=== PATIENT | female | born 1990 | race Caucasian/White ===

== ENCOUNTER → 2023-01-18 | Outpatient (CLI) | payer OTHER, SELFPAY ==
[2023-01-18 10:39] LABS: AST(SGOT) 76 U/L (15-37); Alanine Aminotransfer ALT/SGPT 91 U/L (13-56); Albumin, Serum 3.9 g/dL (3.2-5.0); Alkaline Phosphatase 68 U/L (45-117); Bilirubin, Direct 0.29 mg/dL (0.00-0.30); Globulin 3.7 g/dL (2.2-4.2); Protein, Total 7.6 g/dL (6.4-8.2)
[2023-01-18 12:22] LABS: Absolute Lymphocyte Count 1.06 X10^3/uL (0.83-4.51); Absolute Neutrophil Count 2.9 X10^3/uL (2.0-7.7); Basophil# 0.03 X10^3/uL; Basophil% 0.7 % (0-1); Eosinophil# 0.12 X10^3/uL; Eosinophils% 2.7 % (0-5); Hematocrit 40.3 % (37-47); Hemoglobin 14.1 g/dL (12.0-15.0); Lymphocyte # 1.06 X10^3/ul (0.83-4.51); Lymphocyte % 23.6 % (19-41); Mean Corpuscular Hgb 30.2 pg (27.0-32.0); Mean Corpuscular Volume 86.3 fL (81-99); Mean Platelet Vol. 10.3 fl (6.2-12.0); Monocyte# 0.36 X10^3/uL; NRBC Flagged by Analyzer 0 % (0-5); Neutrophil # 2.91 X10^3/uL (2.7-7.7); Neutrophil % 64.8 % (47-70); Platelet Count 100 K/mm3 (150-450); RBC Distribution Width CV 14.5 % (11.6-14.6); RBC Distribution Width SD 44.2 fl (35.1-43.9); Red Blood Count 4.67 M/mm3 (4.2-5.4); White Blood Count 4.5 K/mm3 (4.4-11.0)
== END | disposition home or self-care (01) ==
LOC: MTLAB 08:16
PROVIDERS: PCP Family Medicine; Referring Provider Internal Medicine Gastroenterology; Visit Provider Internal Medicine Gastroenterology
DX: B17.9 Acute viral hepatitis, unspecified (principal)
CPT/HCPCS: 36415; 80076; 85025

== ENCOUNTER → 2023-02-18 | Outpatient (CLI) | payer OTHER, SELFPAY ==
[2023-02-18 09:59] LABS: Absolute Neutrophil Count 2.9 X10^3/uL (2.0-7.7); Basophil# 0.03 X10^3/uL; Basophil% 0.7 % (0-1); Eosinophil# 0.09 X10^3/uL; Eosinophils% 2.1 % (0-5); Hematocrit 40.6 % (37-47); Hemoglobin 14.4 g/dL (12.0-15.0); Lymphocyte % 22.9 % (19-41); Mean Corp Hgb Conc 35.5 g/dL (32-36); Mean Corpuscular Hgb 30.6 pg (27.0-32.0); Mean Corpuscular Volume 86.4 fL (81-99); Mean Platelet Vol. 11.1 fl (6.2-12.0); Monocyte# 0.33 X10^3/uL; Monocyte% 7.6 % (0-10); NRBC Flagged by Analyzer 0 % (0-5); Neutrophil # 2.89 X10^3/uL (2.7-7.7); Neutrophil % 66.2 % (47-70); POSITIVE COUNT YES; Platelet Count 88 K/mm3 (150-450); RBC Distribution Width CV 14.7 % (11.6-14.6); RBC Distribution Width SD 46.5 fl (35.1-43.9); White Blood Count 4.4 K/mm3 (4.4-11.0)
[2023-02-18 10:27] LABS: AST(SGOT) 57 U/L (15-37); Alanine Aminotransfer ALT/SGPT 75 U/L (13-56); Albumin, Serum 3.7 g/dL (3.2-5.0); Alkaline Phosphatase 69 U/L (45-117); Bilirubin, Direct 0.21 mg/dL (0.00-0.30); Globulin 3.4 g/dL (2.2-4.2); Protein, Total 7.1 g/dL (6.4-8.2)
== END | disposition home or self-care (01) ==
LOC: MTLAB 08:14
PROVIDERS: PCP Family Medicine; Referring Provider Internal Medicine Gastroenterology; Visit Provider Internal Medicine Gastroenterology
DX: B17.9 Acute viral hepatitis, unspecified (principal)
CPT/HCPCS: 36415; 80076; 85025

== ENCOUNTER → 2023-04-01 | Outpatient (CLI) | payer OTHER, SELFPAY ==
--- NOTE | 2023-04-01 08:24 | US_ITS ---
PROCEDURE: ABDOMINAL ULTRASOUND, RIGHT UPPER QUADRANT COMPARISONS: None. CLINICAL INDICATION: Cirrhosis of liver TECHNIQUE: Real-time hernandez-scale abdominal ultrasound. Limited color Doppler evaluation is performed. FINDINGS: Liver: Normal in size, heterogenous echotexture. Appropriate hepatopetal flow is present in the main portal vein. Gallbladder: Gallbladder contracted. No shadowing gallstones. Sonographic Anderson''s sign reported negative. Biliary Tree: Nondilated. Common bile duct measures 4 mm. Pancreas: Limited evaluation of the head and body is unremarkable. Right kidney: Normal in size and echogenicity. No hydronephrosis or stones. The right kidney measures 10.0 cm in long axis. No free fluid. US/Abdomen Limited IMPRESSION: No acute findings in the right upper quadrant. Gallbladder contracted. Electronically Signed: Maksim Rahman MD at 17:38 EST ,
--- OUTSIDE RECORDS SUMMARY | 2023-04-01 08:32 | XMS RPT_ITS | CCD ---
Author Name Unknown Address [address] [facility] [address] [place] [address] Organization [facility] Care Team Providers Care Hull Drafter Name Role Phone PHYSICIAN, NONE Primary Care Physician Unavailab regina MATHIS MD, DR MAYTE Trujillo Admitting Vandana holden PHYSICIAN, NONE Primary Care Unavailable SOPHIA KWONG FACP, EDWARDO W Attending Unavail able MD GERSON OSWALD MD Consulting Unavailable DESTINY KWONG, DR SCHWARZ Consulting Unavailable PHYSICIAN, NONE Primary Care Unavailable DR MAYTE MATHIS MD Consulting KRISTYN Patten MD Attending Unavailable EDWARDO RIVERA DO Consulting Unavailable JESSICA PALACIOS MD Attending Unavailable PHYSICIAN, NONE Primary Care Unavailable NAVIN KWONG MD SAME Carlos Alberto Attending Unavailable TRIPP DELGADILLO DO Primary Care Unavailable NAVIN KWONG MD [facility] Carlos Alberto Attending Unavailable TRIPP DELGADILLO DO Primary Care Unavailable NAVIN KWONG MD [facility] Carlos Alberto Attending Unavailable PHYSICIAN, NONE Primary Care Unavailable MICHELLE KWONG, DR LAWSON Consulting Unavailable Medications Current Medications Medication Drug Class(es) Dates Sig (Normalized) Sig (Original) traMADol hydrochloride 50 mg oral tablet (2 sources) Opioid Agonist Start: 05-27-2022 End: 06-01-2022 traMADol 50 mg oral tablet Dose : 50 mg = 1 tab(s), Oral, q6h, PRN for pain, X 5 day(s), # 20 tab(s), 0 Refill(s), 06/01/22 15:53:00 EST, Pharmacy: [id number], Acute post-operative pain, 160, cm, 05/27/22 10:14:00 EST, Height, 52.3 Start Date: 05/27/22 Stop Date: 06/01/22 Status: Ordered Problems Problem Classification Problem Date Documented Da te Episodic/Chronic Abdominal pain (1 source) Abdominal pain; Translations: [Unspecified abdominal pain] Onset: 05-12-2022 Episodic Coagulation and hemorrhagic disorders (2 sources) Qualitative platelet disorder; 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 Other diseases of kidney and ureters (1 source) 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; Translations: [Cyst of kidney, acquired] Onset: 05-12-2022 Episodic Other gastrointestinal disorders (1 source) Splenomegaly; Translations: [Splenomegaly, not elsewhere classified] Onset: 05-12-2022 Episodic Other liver diseases (2 sources) Cirrhosis of liver; Translations: [Unspecified cirrhosis of liver] Onset: 05-12-2022 Chronic Other liver diseases (1 source) Increased aspartate transaminase level; Translations: [Elevation of levels of liver transaminase levels] Onset: 05-12-2022 Episodic Other nervous system disorders (1 source) Postoperative pain ; Translations: [Other acute postprocedural pain] Onset: 05-27-2022 Episodic Urinary tract infections (1 source) Urinary tract infectious disease; Translations: [Urinary tract infection, site not specified] Onset: 05-12-2022 Episodic Results Test Name Value Interpretation Reference Range Facil ity Vital Signs Date Time Vital Sign Value Performing Clinician Faci lity 05-27-2022 14:14-0500 Diastolic Blood Pressure Non-Invasive 69 1 GERSON OSWALD MD [facility] 05-27-2022 14:14-0500 Heart rate 102 /min GERSON OSWALD MD [facility] 05-27-2022 14:14-0500 Respiratory rate 16 /min GERSON OSWALD MD [facility] 05-27-2022 14:14-0500 Systolic Blood Pressure Non-Invasive 103 1 GERSON OSWALD MD [facility] 05-27-2022 13:45-0500 Diastolic Blood Pressure Non-Invasive 71 1 GERSON OSWALD MD [facility] 05-27-2022 13:45-0500 Heart rate 112 /min GERSON OSWALD MD [facility] 05-27-2022 13:45-0500 Respiratory rate 16 /min GERSON OSWALD MD [facility] 05-27-2022 13:45-0500 Systolic Blood Pressure Non-Invasive 107 1 GERSON OSWALD MD [facility] 05-27-2022 13:30-0500 Diastolic Blood Pressure Non-Invasive 77 1 GERSON OSWALD MD [facility] 05-27-2022 13:30-0500 Heart rate 116 /min GERSON OSWALD MD [facility] 05-27-2022 13:30-0500 Respiratory rate 16 /min GERSON OSWALD MD [facility] 05-27-2022 13:30-0500 Systolic Blood Pressure Non-Invasive 112 1 GERSON OSWALD MD [facility] 05-27-2022 13:15-0500 Heart rate 115 /min GERSON OSWALD MD [facility] 05-27-2022 10:14-0500 Blood Pressure Cuff Size GERSON OSWALD MD [facility] 05-27-2022 10:14-0500 Blood Pressure Location GERSON OSWALD MD [facility] 05-27-2022 10:14-0500 Blood Pressure Method GERSON OSWALD MD [facility] 05-27-2022 10:14-0500 Body height 160 cm GERSON OSWALD MD [facility] 05-27-2022 10:14-0500 Body temperature 98.42 [degF] GERSON OSWALD MD [facility] 05-27-2022 10:14-0500 Body weight 52.3 kg GERSON OSWALD MD [facility] 05-27-2022 10:14-0500 Body weight 20.43 kg/m2 GERSON OSWALD MD [facility] 05-27-2022 10:14-0500 Heart rate 101 /min GERSON OSWALD MD [facility] 05-15-2022 14:59-0500 Body temperature 97.88 [degF] DR MAYTE MATHIS MD [facility] 05-15-2022 14:59-0500 Diastolic Blood Pressure Non-Invasive [address] MAYTE MATHIS MD [address] [place] [address] 05-15-2022 14:59-0500 Heart rate 94 /min DR MAYTE MATHIS MD [address] [place] [address] 05-15-2022 14:59-0500 Reason For Taking VItal Signs DR MAYTE MATHIS MD [address] [place] [address] 05-15-2022 14:59-0500 Respiratory rate 20 /min DR MAYTE MATHIS MD [address] [place] [address] 05-15-2022 14:59-0500 Systolic Blood Pressure Non-Invasive [address] MAYTE MATHIS MD [address] [place] [address] 05-15-2022 07:07-0500 Heart rate 90 /min DR MAYTE MATHIS MD [facility] 05-15-2022 06:34-0500 Body temperature 98.24 [degF] DR MAYTE MATHIS MD [address] [place] [address] 05-15-2022 06:34-0500 Diastolic Blood Pressure Non-Invasive [address] MAYTE MATHIS MD [address] [place] [address] 05-15-2022 06:34-0500 Heart rate 94 /min DR MAYTE MATHIS MD [facility] 05-15-2022 06:34-0500 Respiratory rate 18 /min DR MAYTE MATHIS MD [facility] 05-15-2022 06:34-0500 Systolic Blood Pressure Non-Invasive [address] MAYTE MATHIS MD [address] [place] [address] 05-15-2022 05:05-0500 Body weight 54.[address] MAYTE MATHIS MD [address] [place] [address] 05-14-2022 23:57-0500 Body temperature 97.88 [degF] DR MAYTE MATHIS MD [address] [place] [address] 05-14-2022 23:57-0500 Diastolic Blood Pressure Non-Invasive [address] MAYTE MATHIS MD [address] [place] [address] 05-14-2022 23:57-0500 Heart rate 83 /min DR MAYTE MATHIS MD [address] 05-14-2022 23:57-0500 Respiratory rate 16 /min DR MAYTE MATHIS MD [address] [place] [address] 05-14-2022 23:57-0500 Systolic Blood Pressure Non-Invasive [address] MAYTE MATHIS MD [address] [place] [address] 05-14-2022 19:30-0500 Reason For Taking VItal Signs DR MAYTE MATHIS MD [address] [place] [address] 05-14-2022 14:10-0500 Reason For Taking VItal Signs DR MAYTE MATHIS MD [address] [place] [address] 05-14-2022 08:44-0500 Heart rate 82 /min DR MAYTE MATHIS MD [address] [place] [address] 05-13-2022 20:44-0500 Heart rate 94 /min DR MAYTE MATHIS MD [address] [place] [address] 05-13-2022 16:50-05[address] Pressure Cuff Size DR MAYTE MATHIS MD [address] [place] [address] 05-13-2022 16:50-[address] MAYTE MATHIS MD [facility] 05-13-2022 16:50-[address] MAYTE Munoz MD [facility] 05-13-2022 06:32-0500 Blood Pressure Cuff Size DR MAYTE MATHIS MD [address] [place] [address] 05-13-2022 06:32-[address] MAYTE MATHIS MD [facility] 05-13-2022 06:32-[address] MAYTE Munoz MD [address] [place] [address] 05-12-2022 23:42-0500 Body height [address] MAYTE MATHIS MD [address] [place] [address] 05-12-2022 23:42-0500 Body weight 53.[address] MAYTE MATHIS MD [address] [place] [address] 05-12-2022 23:42-0500 Body weight 20.78 kg/m2 DR MAYTE MATHIS MD [facility] 05-12-2022 19:40-0500 Diastolic Blood Pressure Non-Invasive 64 1 KRISTYN PETERSEN MD [facility] 05-12-2022 19:40-0500 Heart rate 85 /min KRISTYN PETERSEN MD [facility] 05-12-2022 19:40-0500 Reason For Taking VItal Signs KRISTYN PETERSEN MD [facility] 05-12-2022 19:40-0500 Respiratory rate 16 /min KRISTYN PETERSEN MD [facility] 05-12-2022 19:40-0500 Systolic Blood Pressure Non-Invasive 130 1 KRISTYN PETERSEN MD [facility] 05-12-2022 12:59-0500 Diastolic Blood Pressure Non-Invasive 84 1 KRISTYN PETERSEN MD [facility] 05-12-2022 12:59-0500 Heart rate 80 /min KRISTYN PETERSEN MD [facility] 05-12-2022 12:59-0500 Respiratory rate 18 /min KRISTYN PETERSEN MD [facility] 05-12-2022 12:59-0500 Systolic Blood Pressure Non-Invasive 134 1 KRISTYN PETERSEN MD [facility] 05-12-2022 10:10-0500 Body height 160 cm KRISTYN PETERSEN MD [facility] 05-12-2022 10:10-0500 Body temperature 98.42 [degF] KRISTYN PETERSEN MD [facility] 05-12-2022 10:10-0500 Body weight 52.8 kg KRISTYN PETERSEN MD [facility] 05-12-2022 10:10-0500 Diastolic Blood Pressure Non-Invasive 74 1 KRISTYN PETERSEN MD [facility] 05-12-2022 10:10-0500 Heart rate 93 /min KRISTYN PETERSEN MD [facility] 05-12-2022 10:10-0500 Respiratory rate 18 /min KRISTYN PETERSEN MD [facility] 05-12-2022 10:10-0500 Systolic Blood Pressure Non-Invasive 127 1 KRISTYN PETERSEN MD [facility] Encounters Encounter Date Encounter Type Care Provider Facility Start: 11-06-2022 ambulatory MD GERSON OSWALD MD Fac ility:B Start: 10-22-2022 ambulatory MD GERSON OSWALD MD Fac ility:B Start: 05-27-2022 End: 05-28-2022 ambulatory MD GERSON OSWALD MD Facility:A Start: 05-27-2022 End: 05-27-2022 Patient encounter procedure GERSON OSWALD MD [facility] Start: 05-21-2022 End: 05-22-2022 ambulatory JESSICA PALACIOS MD Facility:B Start: 05-21-2022 End: 05-21-2022 Patient encounter procedure JESSICA PALACIOS MD [facility] Start: 05-13-2022 End: 05-15-[address] MAYTE MATHIS MD Facility:A Start: 05-12-2022 End: 05-15-[address] MAYTE MATHIS MD [facility] Start: 05-12-2022 End: 05-13-2022 Emergency department patient visit NONE PHYSICIAN Facility:B Start: 05-12-2022 End: 05-12-2022 Emergency department patient visit KRISTYN PETERSEN MD [facility] Payers Date Payer Category Payer Unknown [id number] 1990 Unknown [id number] [id number] 1990 Unknown [id number] [id number] [id number] 1990 Unknown [id number] 2.16.8 [id number] 1990 Unknown [id number] 2.16.8 [id number] 1990 Unknown [id number] 2.16.8 [id number] 1990 Unknown [id number] 2.16.8 [id number] Social History Date Type Detail Facility Start: 05-12-2022 Tobacco smoking status Never s moked tobacco (finding) [facility] Sex Assigned At Female [facility] Functional Status Date Assessment Result Facility 05-27-2022 Functional Status Safety level maintained [facility] 05-27-2022 Functional Status [facility] 05-27-2022 Functional Status [facility] 05-15-2022 Functional Status Non-Slip footw ear, Room check performed [facility] 05-15-2022 Functional Status [facility] 05-15-2022 Functional Status [facility] 05-15-2022 Functional Status Done [facility] 05-15-2022 Functional Status [facility] 05-14-2022 Functional Status [facility] 05-13-2022 Functional Status Driving, Work [facility] 05-13-2022 Functional Status Fluid Restriction Done Charted [facility] 05-12-2022 Functional Status [facility] 05-12-2022 Functional Status Room check performed [facility] 05-12-2022 Functional Status [facility] Mental Status Date Assessment Result Facility 05-27-2022 Mental Status Orientation Oriented x 4 [facility] 05-27-2022 Mental Status [facility] 05-15-2022 Mental Status Orientation Oriented x 4 [facility] 05-14-2022 Mental Status [facility] 05-14-2022 Mental Status [facility] 05-12-2022 Mental Status [facility] 05-12-2022 Mental Status Orientation Oriented x 4 [facility] 05-12-2022 Mental Status [facility] Clinical Notes 05-12-2022 to 06-03-2022 Note Date & Type Note Facility 06-03-2022 Note ORIGINAL PROCEDURE: DOS: 05/27/[address] guided random core biopsy, liver CHAIN MORTISER OPERATOR: Dr. Martinez BUSINESS DIRECTOR: None MATERIALS: 18G core biopsy device Gelfoam ANESTHESIA: Moderate sedation was administered and monitored by dedicated nursing personnel. Dosages recorded separately. SEDATION TIME (min): 40 ACCESS SITE: RUQ CORES (#): 5 TOUCHPREP: No DLP (mGy-cm): 565 CT fluoro (sec): 14 The procedure, risks, and alternatives, were discussed with the patient and all questions were answered. Informed consent was documented. Initial CT images demonstrate unremarkable appearance of the liver. Periphery of segment 5 was targeted for random biopsy. Skin access site was marked then prepped and draped sterilely. Time out performed. After administering local anesthesia, the coaxial guide needle was advanced to the liver under CT guidance. Core samples were obtained and submitted to pathology. Gelfoam pledget was injected at the biopsy site. Gelfoam slurry administered at the liver capsule for added hemostasis. [place] were removed. Sterile dressing placed. Post procedure images demonstrate no significant hemorrhage at the biopsy site. COMPLICATIONS: None EBL: Minimal CONDITION: Stable, unchanged. TECHNIQUE: This exam was performed according to our departmental dose-optimization program which includes automated exposure control, adjustment of the mA and/or kVp according to patient size and/or use of iterative reconstruction technique where applicable. COMPARISON: None HISTORY: ORDERING SYSTEM PROVIDED HISTORY: Reason for Exam: CIRRHOSIS IMPRESSION: 1. Successful CT guided random liver core biopsy. Interpreted by: Ekaterina Martinez MD Preliminary Report By: Ekaterina Martinez MD Electronically signed By Ekaterina Martinez MD Dictated Date: 06/03/2022 9:14:07 PM Prelim Date: 06/03/2022 9:15:44 PM Sign Date: 06/03/2022 9:15:44 PM Ordering Provider: [facility] 05-27-2022 Procedure note Brief IR Post Procedure Note - Outpatient Pre Procedure Dx: Cirrhosis Post Procedure Dx: Same Procedure: 1. CT liver biopsy, random Licensed Customs Broker: Michelle Charter Coach Driver: None Anesthesia: Local, moderate sedation EBL: Minimal Complications:None Status: Stable Findings: 1. 5x18G core of segment 5 liver. Gelfoam pledget embolization of the tract and slurry of the capsule. No immediate post subcapsular or perihepatic hematoma. Plan: 1. VS check then d/c home after VSS for 2h Full report to follow. Orders in Cerner. Ekaterina Martinez MD [facility] ([facility]) Efrain Pager: [phone] [facility] Dept (26/10): [phone] [facility] [phone] [facility] Digitally Signed by EKATERINA MARTINEZ MD on 05/27/2022 02:17 PM [facility] 05-27-2022 Note TRICE Mcpherson: SIGN, AUTHOR, PERFORM Event Display: CT Procedure Record Authored Date: CT Procedure Record Summary Primary Physician: EKATERINA MARTINEZ MD Finalized Date/Time: 05/27/22 12:50:03 Pt. Name: ALEXEI MAXWELLO.B./Sex: 1990 Female Med Rec #: [id number] Physician: Financial #: [id number] Pt. Type: O Room/Bed: / Admit/Disch: 05/27/22 09:56:00 - Institution: Allergies identified in patient's electronic medical record at time of printing on 05/27/22 Entry 1 Substance NKA Reaction Type Allergy Last Modified By: TRICE Asher 05/12/22 10:09:46 Case Attendance- CT Entry 1 Entry 2 Entry 3 Case Attendee EKATERINA MARTINEZ MD, RN Melanie L Vuletich, [facility] NLaxmi Role Performed Primary Surgeon Procedure Nurse Instructional Technology Teacher Details Time In 05/27/22 11:43:00 05/27/22 11:43:00 05/27/22 11:43:00 Time Out 05/27/22 12:34:00 05/27/22 12:45:00 05/27/22 12:45:00 Procedure/Preference CT Biopsy Liver (SN) CT Biopsy Liver (SN) CT Biopsy Liver (SN) Card Last Modified By: TRICE Mcpherson RN Melanie L Lee, RN Melanie L 05/27/22 12:49:59 05/27/22 12:49:59 05/27/22 12:49:59 Radiology Procedures- CT Entry 1 Procedure/Preference CT Biopsy Liver (SN) Actual Procedure CT BIOPSY LIVER Card Primary Procedure Yes Primary Surgeon EKATERINA MARTINEZ MD Anesthesia/Sedation Local, IV Sedation Type Additional Procedure Times Start 05/27/22 11:52:00 Stop 05/27/22 12:34:00 Specialty Service SN Radiology Procedure EBL 2 mL Last Modified By: TRICE Mcpherson 05/27/22 12:34:19 Cultures and Specimens- CT Entry 1 Kind Specimen Type Organ Date/Time 05/27/22 12:22:00 Source liver Comments 5 samples obtained Last Modified By: TRICE Mcpherson 05/27/22 12:39:13 General Case Data- CT Entry 1 Case Information Room AH CT 2 Case Level None Wound Class None Specialty SN Radiology Procedure ASA Class None Diagnosis Preop Diagnosis cirrhosis Postop Same As Preop Yes Postop Diagnosis cirrhosis Last Modified By: TRICE Mcpherson 05/27/22 12:01:39 Medication Administration- CT Entry 1 Entry 2 Entry 3 Medication versed fentanyl versed Time Administered 05/27/22 11:54:00 05/27/22 11:59:00 05/27/22 11:59:00 Route of Admin IV Push IV Push IV Push Dose 2mg 25mcg 1mg Volume VORB * *Verbal Order Read Back (VORB) is required for NON- PHYSICIAN administration of medications. Administered by No No No Physician? Administered by: TRICE Mcpherson RN Melanie L Lee, TRICE Mcpherson Verbal Order Read EKATERINA MARTINEZ MD, MITRYAN MD KAR, MITRYAN MD Back from: Last Modified By: TRICE Mcpherson RN Melanie L Lee, RN Melanie L 05/27/22 11:59:05 05/27/22 12:00:42 05/27/22 12:00:42 Entry 4 Entry 5 Entry 6 Medication bupivacaine with epi fentanyl versed Time Administered 05/27/22 12:15:00 05/27/22 12:04:00 05/27/22 12:04:00 Route of Admin Local IV Push IV Push Dose 20cc 25mcg 1mg Volume VORB * *Verbal Order Read Back (VORB) is required for NON- PHYSICIAN administration of medications. Administered by Yes No No Physician? Administered by: EKATERINA MARTINEZ MD, RN Melanie L Lee, TRICE Mcpherson Verbal Order Read EKATERINA MARTINEZ MD, MITRYAN MD Back from: Last Modified By: TRICE Mcpherson RN Melanie L Lee, TRICE Mcpherson 05/27/22 12:29:51 05/27/22 12:05:50 05/27/22 12:05:50 Entry 7 Entry 8 Entry 9 Medication fentanyl versed fentanyl Time Administered 05/27/22 12:09:00 05/27/22 12:09:00 05/27/22 12:14:00 Route of Admin IV Push IV Push IV Push Dose 25mcg 1mg 25mcg Volume VORB * *Verbal Order Read Back (VORB) is required for NON- PHYSICIAN administration of medications. Administered by No No No Physician? Administered by: TRICE Mcpherson, TRICE Mcpherson, TRICE Mcpherson Verbal Order Read EKATERINA MARTINEZ MD, MITRYAN MD KAR, EKATERINA KWONG Back from: Last Modified By: TRICE Mcpherson RN Melanie L Lee, TRICE Mcpherson 05/27/22 12:11:09 05/27/22 12:11:09 05/27/22 12:16:37 Entry 10 Entry 11 Medication versed zofran Time Administered 05/27/22 12:14:00 05/27/22 12:26:00 Route of Admin IV Push IV Push Dose 1mg 4mg Volume VORB * *Verbal Order Read Back (VORB) is required for NON- PHYSICIAN administration of medications. Administered by No No Physician? Administered by: TRICE Mcpherson RN Melanie L Verbal Order Read EKATERINA MARTINEZ MD, MITRYAN MD Back from: Last Modified By: TRICE Mcpherson RN Melanie L 05/27/22 12:16:37 05/27/22 12:28:10 Procedure Case Times- CT Entry 1 Patient In Procedure Patient In OR 05/27/22 11:43:00 Patient Out of OR 05/27/22 12:45:00 Procedure Start/Stop Procedure Start Time 05/27/22 11:52:00 Procedure Stop Time 05/27/22 12:34:00 Last Modified By: TRICE Mcpherson 05/27/22 12:49:55 Immediate Post Procedure Note- CT Entry 1 Immediate Post Yes Findings 5x18G cores of seg 5 Procedure Note liver; random; gelfoam displayed for injected; no immediate Physician to review hematoma Closure Technique Closure Technique Other than Primary Last Modified By: TRICE Mcpherson 05/27/22 12:38:55 Immediate Post Procedure Note- CT Signed By: EKATERINA MARTINEZ MD 05/27/22 12:36 No Complications Allergy Information- CT Entry 1 Allergies Reviewed? Yes Allergies Reviewed Medical Record With Last Modified By: TRICE Mcpherson 05/27/22 11:56:51 Radiology Protocols/Time Out- CT Entry 1 Preprocedure Clinician Verifies Correct patient ID When Clinically Confirmation of correct using name & date Indicated side(s) and site(s), or MRN, Accurate Correct diagnostic and procedure, complete radiology tests Informed Consent, H & P available, Required update immediately blood products, prior to procedure, if implants, devices applicable and/or special equipment available OR/Procedure Room/Bedside Time 05/27/22 11:52:00 Clinician Verifies Correct patient identity including EMR & records using name and date or medical record number, Accurate procedure consent form, Correct patient position, Necessary equipment is available, Anticipated non-routine events with surgical team (case duration, estimated blood loss, patient specific concerns)., [place] patient factors for recovery and management identified with surgical team. When Applicable Confirmation correct Team Members EKATERINA MARTINEZ MD, [place], side and site marked, Present for Time Out TRICE Mcpherson, Mary Kate, Relevant images and TECH Eric N. results are properly labeled and appropriately displayed, Alcohol based prep dry, Double verification of sterility indicators complete Instrument Sterility Team Members EKATERINA MARTINEZ MD, Verifying Sterility Vuletich, TECH Eric N. Procedure CT Biopsy Liver (SN) Last Modified By: TRICE Mcpherson 05/27/22 11:58:00 Skin Prep - CT Entry [address] Biopsy Liver (SN) Skin Prep Prep Area Abdomen Side Right By EKATERINA MARTINEZ MD Prep Agents Chloraprep Hair Removal Method N/A Last Modified By: TRICE Mcpherson 05/27/22 12:00:32 Patient Positioning - CT Entry [address] Biopsy Liver (SN) Body Position OP Supine Feet Uncrossed? Yes Pressure Points Yes Checked Last Modified By: TRICE Mcpherson 05/27/22 12:00:54 Radiology Procedure Plan - CT Entry 1 Radiology - Nursing Care Plan Outcome Statement The patient Outcome Statement The patient receives demonstrates knowledge Cont. appropriate of the expected medication(s), safely responses to the administered during the operative/invasive perioperative/invasive procedure., The period., The patient is patient's value system, free from signs and lifestyle, ethnicity, symptoms of injury and culture are caused by extraneous considered, respected, objects (equipment, and incorporated in the instrumentation, perioperative plan of sponges, or sharps). care., The patient is free from signs and symptoms of infection. Radiology - Action Plan Outcomes Met? Yes Hull Drafter TRICE Mcpherson Completing Procedure Plan Last Modified By: TRICE Mcpherson 05/27/22 12:01:24 Radiology Lines and Procedures- CT Entry 1 Radiology Sedation Case Times Sedation Start Time 05/27/22 11:54:00 Sedation Stop Time 05/27/22 12:34:00 Sedation Total Time 40mins Radiology - Fluid/Drainage RAD - CT Guidewires, Cath... Marietta Corvocet Biopsy System [id number] Radiology Urinary Catheter Radiology - CT Other Items Trays/Kits Custom Procedure Kit Radiology Contrast Contrast Used? N/A Radiology Procedure Site Site/Location abdomen Site Condition No complications Dressing Type Bandaids Technologist Notes gel foam used to seal tract Last Modified By: TRICE Mcpherson 05/27/22 12:34:43 Case Comments <None> Finalized By: TRICE Mcpherson Document Signatures Signed By: TRICE Mcpherson 05/27/22 12:50 [facility] 05-27-2022 Procedure note Brief IR Post Procedure Note - Outpatient Pre Procedure Dx: Cirrhosis Post Procedure Dx: Same Procedure: 1. CT liver biopsy, random Licensed Customs Broker: Michelle Charter Coach Driver: None Anesthesia: Local, moderate sedation EBL: Minimal Complications:None Status: Stable Findings: 1. 5x18G core of segment 5 liver. Gelfoam pledget embolization of the tract and slurry of the capsule. No immediate post subcapsular or perihepatic hematoma. Plan: 1. VS check then d/c home after VSS for 2h Full report to follow. Orders in [employer] [facility]. Ekaterina Martinez MD Vascular & Interventional Radiology [facility] ([facility]) Efrain Pager: [phone] [facility] Dept (26/10): [phone] [facility] [phone] [employer] Digitally Signed by EKATERINA MARTINEZ MD on 05/27/2022 02:17 PM [facility] IR PREPROCEDURE H&P UPDATE IF A HISTORY AND PHYSICAL EXAMINATION HAS BEEN COMPLETED PRIOR TO ADMISSION TO THE HOSPITAL, AN UPDATED EXAMINATION MUST BE COMPLETED AND DOCUMENTED WITHIN 24 HOURS AFTER ADMISSION OR REGISTRATION BUT BEFORE A SURGICAL PROCEDURE. I have examined the patient, reviewed the H&P, and there are no changes unless noted below: _ The most recent H&P/Office Note was performed on 05/15/2022 and can be found in the [facility] ([facility]). Dolores Hunter PA-C Interventional Radiology Pager: [phone] IR dept: x [phone] Available on [facility] Diagnostic Tests Pending * Creatinine 05/27/22 [facility] 02-22-2023 Hospital Discharge instructions Patient Education 05/27/2022 11:19:58 Radiology- US Liver Biospy 07/19/2019(CUSTOM) SUNSPOT Liver Biopsy Discharge Instructions Ultrasound Department [facility] Imaging Services [address] [place] [address] Today, you had a biopsy of your liver tissue. This procedure was done to help your doctor diagnose and treat the signs and symptoms you have been experiencing. These instructions should be followed after your procedure to reduce the chance of experiencing complications. Diet: Resume your normal diet as tolerated. Activity: Rest for the remainder of the day. You may resume your normal activity tomorrow. You may bathe/shower after 24 hours. Do not soak or submerge site (including swimming or hot tubs) until a scab forms. No heavy lifting, pushing, or straining. Dressing: Check the site for bleeding. Apply pressure to the site if bleeding excessively and call your physician. Change the band aid as needed; it can be removed after 24 hours. Keep the site dry at all times until a scab forms over the site. Pain Control: The puncture site may be sore for 1 to 2 days following the procedure. Pero-[id number] pain medication should be used for pain or discomfort. Please check with the physician who ordered this procedure for you for their specific recommendations. If your pain is not relieved or becomes more severe, notify the physician who sent you for this procedure. If you were sedated for this procedure: Avoid alcoholic beverages for 24 hours after your procedure. Do not drive or operate heavy machinery for 24 hours after your procedure. Do not make any legal decisions for 24 hours after your procedure. Medication: Please resume all medications today. When to seek medical help: Right shoulder pain that is severe and last more than several hours. Abdominal pain or swelling. Severe nausea or vomiting. Black, foul smelling bowel movements. Lightheadedness, dizziness, or fainting. Infection: fever greater than 101 degrees, chills, redness, warmth, swelling, bleeding, or pus frompuncture site. If you experience any of these issues during the first 24 hours, please follow the instruction below: 8:00 am- 5:00 pm call [phone] After 5:00 pm call [phone] After 24 hours, contact the physician who ordered this procedure for you. Obtaining test results: Please make an appointment with your doctor to obtain your test results. They are usually availablewithin 4 to 7 business days. Do not assume everything is normal if you have not heard from your doctor or medical facility. It is important for you to follow up on all of your test results. Follow Up Care 05/21/2022 08:42:50 With:Follow up with primary care provider Address:Unknown When: Unknown [facility] 02-22-[address] Procedure Record Summary Primary Physician: EKATERINA MARTINEZ MD Finalized Date/Time: 05/27/22 12:50:03 Pt. Name: ALEXEI MAXWELL/Sex: 1990 Female Med Rec #: [id number] Physician: Financial #: [id number] Pt. Type: O Room/Bed: / Admit/Disch: 05/27/22 09:56:00 - Institution: Allergies identified in patient's electronic medical record at time of printing on 05/27/22 Entry 1 Substance NKA Reaction Type Allergy Last Modified By: TRICE Asher 05/12/22 10:09:46 Case Attendance- CT Entry 1 Entry 2 Entry 3 Case Attendee EKATERINA MARTINEZ MD, RN Melanie L Vuletich, [facility] Belinda Role Performed Primary Surgeon Procedure Nurse Instructional Technology Teacher Details Time In 05/27/22 11:43:00 05/27/22 11:43:00 05/27/22 11:43:00 Time Out 05/27/22 12:34:00 05/27/22 12:45:00 05/27/22 12:45:00 Procedure/Preference CT Biopsy Liver (SN) CT Biopsy Liver (SN) CT Biopsy Liver (SN) Card Last Modified By: TRICE Mcpherson RN Melanie L Lee, RN Melanie L 05/27/22 12:49:59 05/27/22 12:49:59 05/27/22 12:49:59 Radiology Procedures- CT Entry 1 Procedure/Preference CT Biopsy Liver (SN) Actual Procedure CT BIOPSY LIVER Card Primary Procedure Yes Primary Surgeon EKATERINA MARTINEZ MD Anesthesia/Sedation Local, IV Sedation Type Additional Procedure Times Start 05/27/22 11:52:00 Stop 05/27/22 12:34:00 Specialty Service SN Radiology Procedure EBL 2 mL Last Modified By: TRICE Mcpherson 05/27/22 12:34:19 Cultures and Specimens- CT Entry 1 Kind Specimen Type Organ Date/Time 05/27/22 12:22:00 Source liver Comments 5 samples obtained Last Modified By: TRICE Mcpherson 05/27/22 12:39:13 General Case Data- CT Entry [address] 2 Case Level None Wound Class None Specialty SN Radiology Procedure ASA Class None Diagnosis Preop Diagnosis cirrhosis Postop Same As Preop Yes Postop Diagnosis cirrhosis Last Modified By: TRICE Mcpherson 05/27/22 12:01:39 Medication Administration- CT Entry 1 Entry 2 Entry 3 Medication versed fentanyl versed Time Administered 05/27/22 11:54:00 05/27/22 11:59:00 05/27/22 11:59:00 Route of Admin IV Push IV Push IV Push Dose 2mg 25mcg 1mg Volume VORB * *Verbal Order Read Back (VORB) is required for NON- PHYSICIAN administration of medications. Administered by No No No Physician? Administered by: TRICE Mcpherson RN Melanie L Ky, TRICE Mcpherson Verbal Order Read EKATERINA MARTINEZ MD, MITRYAN MD KAR, EKATERINA KWONG Back from: Last Modified By: TRICE Mcpherson, TRICE Mcpherson, TRICE Mcpherson 05/27/22 11:59:05 05/27/22 12:00:42 05/27/22 12:00:42 Entry 4 Entry 5 Entry 6 Medication bupivacaine with epi fentanyl versed Time Administered 05/27/22 12:15:00 05/27/22 12:04:00 05/27/22 12:04:00 Route of Admin Local IV Push IV Push Dose 20cc 25mcg 1mg Volume VORB * *Verbal Order Read Back (VORB) is required for NON- PHYSICIAN administration of medications. Administered by Yes No No Physician? Administered by: EKATERINA MARTINEZ MD, RN Melanie L Lee, TRICE Mcpherson Verbal Order Read EKATERINA MARTINEZ MD, EKATERINA KWONG Back from: Last Modified By: TRICE Mcpherson RN Melanie L Lee, TRICE Mcpherson 05/27/22 12:29:51 05/27/22 12:05:50 05/27/22 12:05:50 Entry 7 Entry 8 Entry 9 Medication fentanyl versed fentanyl Time Administered 05/27/22 12:09:00 05/27/22 12:09:00 05/27/22 12:14:00 Route of Admin IV Push IV Push IV Push Dose 25mcg 1mg 25mcg Volume VORB * *Verbal Order Read Back (VORB) is required for NON- PHYSICIAN administration of medications. Administered by No No No Physician? Administered by: TRICE Mcpherson, TRICE Mcpherson, TRICE Mcpherson Verbal Order Read EKATERINA MARTINEZ MD, MITRYAN MD KAR, MITRYAN MD Back from: Last Modified By: TRICE Mcpherson, TRICE Mcpherson, TRICE Mcpherson 05/27/22 12:11:09 05/27/22 12:11:09 05/27/22 12:16:37 Entry 10 Entry 11 Medication versed zofran Time Administered 05/27/22 12:14:00 05/27/22 12:26:00 Route of Admin IV Push IV Push Dose 1mg 4mg Volume VORB * *Verbal Order Read Back (VORB) is required for NON- PHYSICIAN administration of medications. Administered by No No Physician? Administered by: TRICE Mcpherson RN Melanie L Verbal Order Read EKATERINA MARTINEZ MD, MITRYAN MD Back from: Last Modified By: TRICE Mcpherson RN Melanie L 05/27/22 12:16:37 05/27/22 12:28:10 Procedure Case Times- CT Entry 1 Patient In Procedure Patient In OR 05/27/22 11:43:00 Patient Out of OR 05/27/22 12:45:00 Procedure Start/Stop Procedure Start Time 05/27/22 11:52:00 Procedure Stop Time 05/27/22 12:34:00 Last Modified By: TRICE Mcpherson 05/27/22 12:49:55 Immediate Post Procedure Note- CT Entry 1 Immediate Post Yes Findings 5x18G cores of seg 5 Procedure Note liver; random; gelfoam displayed for injected; no immediate Physician to review hematoma Closure Technique Closure Technique Other than Primary Last Modified By: TRICE Mcpherson 05/27/22 12:38:55 Immediate Post Procedure Note- CT Signed By: EKATERINA MARTINEZ MD 05/27/22 12:36 No Complications Allergy Information- CT Entry 1 Allergies Reviewed? Yes Allergies Reviewed Medical Record With Last Modified By: TRICE Mcpherson 05/27/22 11:56:51 Radiology Protocols/Time Out- CT Entry 1 Preprocedure Clinician Verifies Correct patient ID When Clinically Confirmation of correct using name & date Indicated side(s) and site(s), or MRN, Accurate Correct diagnostic and procedure, complete radiology tests Informed Consent, H & P available, Required update immediately blood products, prior to procedure, if implants, devices applicable and/or special equipment available OR/Procedure Room/Bedside Time 05/27/22 11:52:00 Clinician Verifies Correct patient identity including EMR & records using name and date or medical record number, Accurate procedure consent form, Correct patient position, Necessary equipment is available, Anticipated non-routine events with surgical team (case duration, estimated blood loss, patient specific concerns)., Mcqueen patient factors for recovery and management identified with surgical team. When Applicable Confirmation correct Team Members EKATERINA MARTINEZ MD, Ky, side and site marked, Present for Time Out TRICE Mcpherson, Mary Kate, Relevant images and TECH Eric N. results are properly labeled and appropriately displayed, Alcohol based prep dry, Double verification of sterility indicators complete Instrument Sterility Team Members EKATERINA MARTINEZ MD, Verifying Sterility Mary Kate, TECH Eric N. Procedure CT Biopsy Liver (SN) Last Modified By: TRICE Mcpherson 05/27/22 11:58:00 Skin Prep - CT Entry [address] Biopsy Liver (SN) Skin Prep Prep Area Abdomen Side Right By EKATERINA MARTINEZ MD Prep Agents Chloraprep Hair Removal Method N/A Last Modified By: TRICE Mcpherson 05/27/22 12:00:32 Patient Positioning - CT Entry [address] Biopsy Liver (SN) Body Position OP Supine Feet Uncrossed? Yes Pressure Points Yes Checked Last Modified By: TRICE Mcpherson 05/27/22 12:00:54 Radiology Procedure Plan - CT Entry 1 Radiology - Nursing Care Plan Outcome Statement The patient Outcome Statement The patient receives demonstrates knowledge Cont. appropriate of the expected medication(s), safely responses to the administered during the operative/invasive perioperative/invasive procedure., The period., The patient is patient's value system, free from signs and lifestyle, ethnicity, symptoms of injury and culture are caused by extraneous considered, respected, objects (equipment, and incorporated in the instrumentation, perioperative plan of sponges, or sharps). care., The patient is free from signs and symptoms of infection. Radiology - Action Plan Outcomes Met? Yes Hull Drafter TRICE Mcpherson Completing Procedure Plan Last Modified By: TRICE Mcpherson 05/27/22 12:01:24 Radiology Lines and Procedures- CT Entry 1 Radiology Sedation Case Times Sedation Start Time 05/27/22 11:54:00 Sedation Stop Time 05/27/22 12:34:00 Sedation Total Time 40mins Radiology - Fluid/Drainage RAD - CT Guidewires, Cath... Marietta Corvocet Biopsy System [id number] Radiology Urinary Catheter Radiology - CT Other Items Trays/Kits Custom Procedure Kit Radiology Contrast Contrast Used? N/A Radiology Procedure Site Site/Location abdomen Site Condition No complications Dressing Type Bandaids Technologist Notes gel foam used to seal tract Last Modified By: TRICE Mcpherson 05/27/22 12:34:43 Case Comments Finalized By: TRICE Mcpherson Document Signatures Signed By: TRICE Mcpherson 05/27/22 12:50 [id number] History and physical note IR PREPROCEDURE H&P UPDATE IF A HISTORY AND PHYSICAL EXAMINATION HAS BEEN COMPLETED PRIOR TO ADMISSION TO THE HOSPITAL, AN UPDATED EXAMINATION MUST BE COMPLETED AND DOCUMENTED WITHIN 24 HOURS AFTER ADMISSION OR REGISTRATION BUT BEFORE A SURGICAL PROCEDURE. I have examined the patient, reviewed the H&P, and there are no changes unless noted below: _ The most recent H&P/Office Note was performed on 05/15/2022 and can be found in the [facility] ([facility]). Dolores Hunter PA-C Interventional Radiology Pager: [phone] IR dept: x [phone] Available on [employer] Digitally Signed by DOLORES HUNTER PA-C on 05/27/2022 12:29 PM Digitally Signed by EKATERINA MARTINEZ MD on 05/27/2022 02:04 PM [facility] [id number] Summary of episode note Discharge Instructions Thank you for allowing [facility] to assist you with your healthcare needs. The following is importantdischarge information regarding your hospital visit. Your Care Team PHYSICIAN, NONE What to do next Follow Up Appointments Follow Up with Follow up with primary care provider When The Following Activity and Diet Have Been Ordered for You No qualifying data available. No qualifying data available. The Following Equipment Has Been Ordered for You No qualifying data available. The Following Treatments Have Been Ordered for You Discharge Labs No qualifying data available. Discharge Radiology No qualifying data available. Other Therapies No qualifying data available. Post Acute Orders No qualifying data available. Someone Will Contact You Regarding These Home Health Referrals No home referrals have been ordered for you. No one will call you. Allergies NKA Medications Please ask your primary doctor or pharmacist before taking any other medication not listed, including over the counter drugs, herbal medications, vitamins and or supplements as they may interact withyour home medications. Please take this list to your next doctor s visit. Bring all medications you take, including over the counter medications, herbals and other supplements with you to your doctor s visit. Patients and families are reminded to discard old lists and to update any records with all medication providers or retail pharmacies. Education Materials SUNSPOT Liver Biopsy Discharge Instructions Ultrasound Department [facility] Imaging Services [address] [facility] [address] Today, you had a biopsy of your liver tissue. This procedure was done to help your doctor diagnose and treat the signs and symptoms you have been experiencing. These instructions should be followed after your procedure to reduce the chance of experiencing complications. Diet: Resume your normal diet as tolerated. Activity: Rest for the remainder of the day. You may resume your normal activity tomorrow. You may bathe/shower after 24 hours. Do not soak or submerge site (including swimming or hot tubs) until a scab forms. No heavy lifting, pushing, or straining. Dressing: Check the site for bleeding. Apply pressure to the site if bleeding excessively and call your physician. Change the band aid as needed; it can be removed after 24 hours. Keep the site dry at all times until a scab forms over the site. Pain Control: The puncture site may be sore for 1 to 2 days following the procedure. Rxkr-lok-ywpqbhj pain medication should be used for pain or discomfort. Please check with the physician who ordered this procedure for you for their specific recommendations. If your pain is not relieved or becomes more severe, notify the physician who sent you for this procedure. If you were sedated for this procedure: Avoid alcoholic beverages for 24 hours after your procedure. Do not drive or operate heavy machinery for 24 hours after your procedure. Do not make any legal decisions for 24 hours after your procedure. Medication: Please resume all medications today. When to seek medical help: Right shoulder pain that is severe and last more than several hours. Abdominal pain or swelling. Severe nausea or vomiting. Black, foul smelling bowel movements. Lightheadedness, dizziness, or fainting. Infection: fever greater than 101 degrees, chills, redness, warmth, swelling, bleeding, or pus frompuncture site. If you experience any of these issues during the first 24 hours, please follow the instruction below: 8:00 am- 5:00 pm call [phone] After 5:00 pm call [phone] After 24 hours, contact the physician who ordered this procedure for you. Obtaining test results: Please make an appointment with your doctor to obtain your test results. They are usually availablewithin 4 to 7 business days. Do not assume everything is normal if you have not heard from your doctor or medical facility. It is important for you to follow up on all of your test results. Additional Information VACCINATE! IT SAVES LIVES! Members of the community who have not yet received the COVID-19 vaccine and would like to receive it can visit one of [facility] vaccine clinics. There are many vaccine clinic locations within the [facility]. For locations and available times, please visit [email or web address].[place].gov/. It is important to note that some COVID mobile vaccine clinics are held outdoors and may be canceled in rainy or stormy conditions. To learn more about pediatric vaccinations (ages 5-11), we invite you to visit the [facility] webpage. https://[email or web address].org/[email or web address]-Mrkxv-Jblhaywqgzz-Sgjpcuzrdb-Laqlt-Vxl stions.htmlTo learn more about the COVID-19 vaccine, we invite you to visit the CDC website for a list of frequently asked questions. https://www.cdc.gov/coronavirus/2019-ncov/vaccines/faq.html [facility] Patient Portal Access Instructions: Stay connected with your healthcare team and access your personal medical information anytime with the [facility] Patient Portal.If you would like a full copy of your medical records, please contact the [facility] Medical Records Department, Wednesday through Wednesday between 8a.m. and 4:30p.m. Please follow the directions below to access the portal: 1.Access the email account you provided upon registration to the hospital.2.Look for an invitation email from [facility].3.Open the email and access the invitation link: Accept Invitation to [facility]4.Fill in the required mujica to create your account. Sign into www.[employer] with your username and password that you created in the above steps to stay up to date. You can then view a summary of results, a summary of your visits, and the ability to download your summaries to your computer or send the information securely to a physician. Remember that your healthcare information is confidential, so carefully consider who you will allow to register on the [facility] Patient Portal for access to your information. You can also access the [facility] Patient Portal on the [employer]. Simply click on Health Records under HealthData and then click on the [employer] logo. HOW TO SAFELY DISPOSE OF PRESCRIPTION MEDICATIONS Please use one of the following methods to safely dispose of your unused medications. 1.Use a drug disposal kit: the drug disposal pouch allows you to safely discard your old and unuseddrugs. Ask your nurse to give you one when you are discharged.2.Visit a local take-back location: Many local pharmacies and police departments have programs that collect old and unwanted prescriptiondrugs. Call your local pharmacy or go to http://[employer]/9N0Bf5w to find one close to you.3.Make use of household items: Use cat litter or old coffee grounds to dispose medications if other options arenot available. Mix your drugs with these household products, seal them in an airtight container andthrow it into the garbage. Call [facility]: [phone] to be sure your drugs can be disposed of in this way. Some medicines may require a different approach.4.Never flush your medications down the toilet. IF YOU HAVE BEEN PRESCRIBED AN OPIOID FOR PAIN If you have been prescribed an opioid (such as hydrocodone, oxycodone or morphine), it is critical to understand the possible side effects and risks of opioid pain medications. Even when taken as directed, opioids can have several side effects including: Tolerance, meaning you might need to take more of a medication for the same pain relief. Nausea, vomiting and/or constipation. Sleepiness, dizziness, dry mouth, confusion, depression or itching. Physical dependence, meaning you have withdrawal symptoms when a medication is stopped, can develop within a few days. KNOW YOUR RESPONSIBILITIES It is important to know exactly how much and how often to take the opioid pain medications you are prescribed. Never take opioids in higher amounts or more often than prescribed. Do not combine opioids with alcohol or other drugs that cause drowsiness, such as benzodiazepines, also known as benzos, including diazepam and alprazolam, muscle relaxants or sleep aids. Never sell or share prescription opioids. This is illegal. Store opioids in a secure place and out of reach of others (including children, family, friends and visitors). The last page of this document has been signed and retained as a CHART COPY. Signatures Patient Education Materials Radiology- Liver Biospy 07/19/2019(CUSTOM) Medication Leaflets My discharge plan and instructions have been reviewed and explained to me and I,HUI ALEXEI understand my current condition and have read and understand these discharge instructions. I have received a written copy of the plan/instructions. If I have questions, I am aware that I should contact my doctor. Patient/Lab Rn Signature: Date/Time: Relationship to Patient: Witness Name/Signature: Date/Time: [facility] [id number] Hospital Discharge instructions Patient Education 05/15/2022 15:58:42 Liver Function Tests Liver Function Tests Why am I having this test? Liver function tests are done to see how well your liver is working. The proteins and enzymes measured in the test can alert your health care provider to inflammation, damage, or disease in your liver. It is common to have liver function tests: When you are taking certain medicines. If you have liver disease. If you drink a lot of alcohol. When you are not feeling well. When you have other conditions that may affect your liver. During annual physical exams. If you have symptoms such as yellowing of the skin (jaundice), abdominal pain, or nausea and vomiting. What is being tested? These tests measure various substances in your blood. This may include: Alanine transaminase (ALT). This is an enzyme in the liver. Aspartate transaminase (AST). This is an enzyme in the liver, heart, and muscles. Alkaline phosphatase (ALP). This is a protein in the liver, bile ducts, bone, and other body tissues. Total bilirubin. This is a yellow pigment in bile. Albumin. This is a protein in the liver. Prothrombin time and international normalized ratio (PT and INR). PT measures the time it takes foryour blood to clot. INR is a calculation of blood clotting time based on your PT result. It is alsocalculated based on normal ranges defined by the lab that processed your test. Total protein. This includes two proteins, albumin and globulin, found in the blood. What kind of sample is taken? A blood sample is required for this test. It is usually collected by inserting a needle into a blood vessel. How do I prepare for this test? How you prepare will depend on which tests are being done and the reason for doing them. You may need to: Avoid eating for 4 6 hours before the test, or as told by your health care provider. Stop taking certain medicines before your blood test, as told by your health care provider. Tell a health care provider about: All medicines you are taking, including vitamins, herbs, eye drops, creams, and gkfn-nid-kpbeaoh medicines. Any medical conditions you have. Whether you are or may be . How are the results reported? Your test results will be reported as values. Your health care provider will compare your results to normal ranges that were established after testing a large group of people (reference ranges). Reference ranges may vary among labs and hospitals. For the substances measured in liver function tests,common reference ranges are: ALT : 10 40 international units/L. Child or adult: 4 36 international units/L at 37 C or 4 36 units/L (SI units). Reference ranges may be higher for older adults. AST [place] 0 5 days old: 35 140 units/L. Child younger than 3 years old: 15 60 units/L. 3 6 years old: 15 50 units/L. 6 12 years old: 10 50 units/L. 12 18 years old: 10 40 units/L. Adult: 0 35 units/L or 0 0.58 microkatals/L (SI units). Reference ranges may be higher for older adults. ALP Child younger than 2 years old: 85 235 units/L. 2 8 years old: 65 210 units/L. 9 15 years old: 60 300 units/L. 16 21 years old: 30 200 units/L. Adult: 30 120 units/L or 0.5 2.0 microkatals/L (SI units). Reference ranges may be higher for older adults. Total bilirubin [place]: 1.0 12.0 mg/dL or 17.1 205 micromoles/L (SI units). Child or adult: 0.3 1.0 mg/dL or 5.1 17 micromoles/L. Albumin Premature : 3.0 4.2 g/dL. [place]: 3.5 5.4 g/dL. Infant: 4.4 5.4 g/dL. Child: 4.0 5.9 g/dL. Adult: 3.5 5.0 g/dL or 35 50 g/L (SI units). PT 11.0 12.5 seconds; 85% 100%. INR 0.8 1.1. Total protein Premature : 4.2 7.6 g/dL. [place]: 4.6 7.4 g/dL. : 6.0 6.7 g/dL. Child: 6.2 8.0 g/dL. Adult: 6.4 8.3 g/dL or 64 83 g/L (SI units). What do the results mean? Results that are within the reference ranges are considered normal. For each substance measured, results outside the reference range can indicate various health issues. ALT Levels above the normal range may indicate liver disease. AST Levels above the normal range may indicate liver disease. Sometimes levels also increase after george, surgery, heart attack, muscle damage, or seizure. ALP Levels above the normal range may be seen in biliary obstruction, liver diseases, bone disease, thyroid disease, tumors, fractures, leukemia, lymphoma, or several other conditions. People with blood type O or B may show higher levels after a fatty meal. Levels below the normal range may indicate bone and teeth conditions, malnutrition, protein deficiency, or Marquez's disease. Total bilirubin Levels above the normal range may indicate problems with the liver, gallbladder, or bile ducts. Albumin Levels above the normal range may indicate dehydration. They may also be caused by a diet that is high in protein. Levels below the normal range may indicate kidney disease, liver disease, or malabsorption of nutrients. PT and INR Levels above the normal range mean that your blood is clotting slower than normal. This may be due to blood disorders, liver disorders, or low levels of vitamin K. Total protein Levels above the normal range may be due to infection or other diseases. Levels below the normal range may be due to an immune system disorder, bleeding, george, kidney disorder, liver disease, trouble absorbing or getting nutrients, or other conditions that affect the intestines. Talk with your health care provider about what your results mean. Questions to ask your health care provider Ask your health care provider, or the department that is doing the test: When will my results be ready? How will I get my results? What are my treatment options? What other tests do I need? What are my next steps? Summary Liver function tests are done to see how well your liver is working. These tests measure various proteins and enzymes in your blood. The results can alert your health care provider to inflammation, damage, or disease in your liver. Talk with your health care provider about what your results mean. This information is not intended to replace advice given to you by your health care provider. Make sure you discuss any questions you have with your health care provider. Document Released: 04/24/2005 Document Revised: 11/09/2018 Document Reviewed: 01/04/2018 [employer] Patient Education 2020 [employer]. 05/15/2022 15:58:42 Liver Function Tests Liver Function Tests Why am I having this test? Liver function tests are done to see how well your liver is working. The proteins and enzymes measured in the test can alert your health care provider to inflammation, damage, or disease in your liver. It is common to have liver function tests: When you are taking certain medicines. If you have liver disease. If you drink a lot of alcohol. When you are not feeling well. When you have other conditions that may affect your liver. During annual physical exams. If you have symptoms such as yellowing of the skin (jaundice), abdominal pain, or nausea and vomiting. What is being tested? These tests measure various substances in your blood. This may include: Alanine transaminase (ALT). This is an enzyme in the liver. Aspartate transaminase (AST). This is an enzyme in the liver, heart, and muscles. Alkaline phosphatase (ALP). This is a protein in the liver, bile ducts, bone, and other body tissues. Total bilirubin. This is a yellow pigment in bile. Albumin. This is a protein in the liver. Prothrombin time and international normalized ratio (PT and INR). PT measures the time it takes foryour blood to clot. INR is a calculation of blood clotting time based on your PT result. It is alsocalculated based on normal ranges defined by the lab that processed your test. Total protein. This includes two proteins, albumin and globulin, found in the blood. What kind of sample is taken? A blood sample is required for this test. It is usually collected by inserting a needle into a blood vessel. How do I prepare for this test? How you prepare will depend on which tests are being done and the reason for doing them. You may need to: Avoid eating for 4 6 hours before the test, or as told by your health care provider. Stop taking certain medicines before your blood test, as told by your health care provider. Tell a health care provider about: All medicines you are taking, including vitamins, herbs, eye drops, creams, and wtbz-vxz-ojimyoh medicines. Any medical conditions you have. Whether you are or may be . How are the results reported? Your test results will be reported as values. Your health care provider will compare your results to normal ranges that were established after testing a large group of people (reference ranges). Reference ranges may vary among labs and hospitals. For the substances measured in liver function tests,common reference ranges are: ALT Infant: 10 40 international units/L. Child or adult: 4 36 international units/L at 37 C or 4 36 units/L (SI units). Reference ranges may be higher for older adults. AST 0 5 days old: 35 140 units/L. Child younger than 3 years old: 15 60 units/L. 3 6 years old: 15 50 units/L. 6 12 years old: 10 50 units/L. 12 18 years old: 10 40 units/L. Adult: 0 35 units/L or 0 0.58 microkatals/L (SI units). Reference ranges may be higher for older adults. ALP Child younger than 2 years old: 85 235 units/L. 2 8 years old: 65 210 units/L. 9 15 years old: 60 300 units/L. 16 21 years old: 30 200 units/L. Adult: 30 120 units/L or 0.5 2.0 microkatals/L (SI units). Reference ranges may be higher for older adults. Total bilirubin [place]: 1.0 12.0 mg/dL or 17.1 205 micromoles/L (SI units). Child or adult: 0.3 1.0 mg/dL or 5.1 17 micromoles/L. Albumin Premature : 3.0 4.2 g/dL. : 3.5 5.4 g/dL. : 4.4 5.4 g/dL. Child: 4.0 5.9 g/dL. Adult: 3.5 5.0 g/dL or 35 50 g/L (SI units). PT 11.0 12.5 seconds; 85% 100%. INR 0.8 1.1. Total protein Premature infant: 4.2 7.6 g/dL. [place]: 4.6 7.4 g/dL. Infant: 6.0 6.7 g/dL. Child: 6.2 8.0 g/dL. Adult: 6.4 8.3 g/dL or 64 83 g/L (SI units). What do the results mean? Results that are within the reference ranges are considered normal. For each substance measured, results outside the reference range can indicate various health issues. ALT Levels above the normal range may indicate liver disease. AST Levels above the normal range may indicate liver disease. Sometimes levels also increase after george, surgery, heart attack, muscle damage, or seizure. ALP Levels above the normal range may be seen in biliary obstruction, liver diseases, bone disease, thyroid disease, tumors, fractures, leukemia, lymphoma, or several other conditions. People with blood type O or B may show higher levels after a fatty meal. Levels below the normal range may indicate bone and teeth conditions, malnutrition, protein deficiency, or Marquez's disease. Total bilirubin Levels above the normal range may indicate problems with the liver, gallbladder, or bile ducts. Albumin Levels above the normal range may indicate dehydration. They may also be caused by a diet that is high in protein. Levels below the normal range may indicate kidney disease, liver disease, or malabsorption of nutrients. PT and INR Levels above the normal range mean that your blood is clotting slower than normal. This may be due to blood disorders, liver disorders, or low levels of vitamin K. Total protein Levels above the normal range may be due to infection or other diseases. Levels below the normal range may be due to an immune system disorder, bleeding, george, kidney disorder, liver disease, trouble absorbing or getting nutrients, or other conditions that affect the intestines. Talk with your health care provider about what your results mean. Questions to ask your health care provider Ask your health care provider, or the department that is doing the test: When will my results be ready? How will I get my results? What are my treatment options? What other tests do I need? What are my next steps? Summary Liver function tests are done to see how well your liver is working. These tests measure various proteins and enzymes in your blood. The results can alert your health care provider to inflammation, damage, or disease in your liver. Talk with your health care provider about what your results mean. This information is not intended to replace advice given to you by your health care provider. Make sure you discuss any questions you have with your health care provider. Document Released: 04/24/2005 Document Revised: 11/09/2018 Document Reviewed: 01/04/2018 [employer] Patient Education 2020 [employer]. 05/15/2022 15:58:02 Liver Function Tests Liver Function Tests Why am I having this test? Liver function tests are done to see how well your liver is working. The proteins and enzymes measured in the test can alert your health care provider to inflammation, damage, or disease in your liver. It is common to have liver function tests: When you are taking certain medicines. If you have liver disease. If you drink a lot of alcohol. When you are not feeling well. When you have other conditions that may affect your liver. During annual physical exams. If you have symptoms such as yellowing of the skin (jaundice), abdominal pain, or nausea and vomiting. What is being tested? These tests measure various substances in your blood. This may include: Alanine transaminase (ALT). This is an enzyme in the liver. Aspartate transaminase (AST). This is an enzyme in the liver, heart, and muscles. Alkaline phosphatase (ALP). This is a protein in the liver, bile ducts, bone, and other body tissues. Total bilirubin. This is a yellow pigment in bile. Albumin. This is a protein in the liver. Prothrombin time and international normalized ratio (PT and INR). PT measures the time it takes foryour blood to clot. INR is a calculation of blood clotting time based on your PT result. It is alsocalculated based on normal ranges defined by the lab that processed your test. Total protein. This includes two proteins, albumin and globulin, found in the blood. What kind of sample is taken? A blood sample is required for this test. It is usually collected by inserting a needle into a blood vessel. How do I prepare for this test? How you prepare will depend on which tests are being done and the reason for doing them. You may need to: Avoid eating for 4 6 hours before the test, or as told by your health care provider. Stop taking certain medicines before your blood test, as told by your health care provider. Tell a health care provider about: All medicines you are taking, including vitamins, herbs, eye drops, creams, and jlvu-dsg-htwxrni medicines. Any medical conditions you have. Whether you are or may be . How are the results reported? Your test results will be reported as values. Your health care provider will compare your results to normal ranges that were established after testing a large group of people (reference ranges). Reference ranges may vary among labs and hospitals. For the substances measured in liver function tests,common reference ranges are: ALT : 10 40 international units/L. Child or adult: 4 36 international units/L at 37 C or 4 36 units/L (SI units). Reference ranges may be higher for older adults. AST 0 5 days old: 35 140 units/L. Child younger than 3 years old: 15 60 units/L. 3 6 years old: 15 50 units/L. 6 12 years old: 10 50 units/L. 12 18 years old: 10 40 units/L. Adult: 0 35 units/L or 0 0.58 microkatals/L (SI units). Reference ranges may be higher for older adults. ALP Child younger than 2 years old: 85 235 units/L. 2 8 years old: 65 210 units/L. 9 15 years old: 60 300 units/L. 16 21 years old: 30 200 units/L. Adult: 30 120 units/L or 0.5 2.0 microkatals/L (SI units). Reference ranges may be higher for older adults. Total bilirubin : 1.0 12.0 mg/dL or 17.1 205 micromoles/L (SI units). Child or adult: 0.3 1.0 mg/dL or 5.1 17 micromoles/L. Albumin Premature infant: 3.0 4.2 g/dL. : 3.5 5.4 g/dL. Infant: 4.4 5.4 g/dL. Child: 4.0 5.9 g/dL. Adult: 3.5 5.0 g/dL or 35 50 g/L (SI units). PT 11.0 12.5 seconds; 85% 100%. INR 0.8 1.1. Total protein Premature : 4.2 7.6 g/dL. : 4.6 7.4 g/dL. : 6.0 6.7 g/dL. Child: 6.2 8.0 g/dL. Adult: 6.4 8.3 g/dL or 64 83 g/L (SI units). What do the results mean? Results that are within the reference ranges are considered normal. For each substance measured, results outside the reference range can indicate various health issues. ALT Levels above the normal range may indicate liver disease. AST Levels above the normal range may indicate liver disease. Sometimes levels also increase after george, surgery, heart attack, muscle damage, or seizure. ALP Levels above the normal range may be seen in biliary obstruction, liver diseases, bone disease, thyroid disease, tumors, fractures, leukemia, lymphoma, or several other conditions. People with blood type O or B may show higher levels after a fatty meal. Levels below the normal range may indicate bone and teeth conditions, malnutrition, protein deficiency, or Marquez's disease. Total bilirubin Levels above the normal range may indicate problems with the liver, gallbladder, or bile ducts. Albumin Levels above the normal range may indicate dehydration. They may also be caused by a diet that is high in protein. Levels below the normal range may indicate kidney disease, liver disease, or malabsorption of nutrients. PT and INR Levels above the normal range mean that your blood is clotting slower than normal. This may be due to blood disorders, liver disorders, or low levels of vitamin K. Total protein Levels above the normal range may be due to infection or other diseases. Levels below the normal range may be due to an immune system disorder, bleeding, george, kidney disorder, liver disease, trouble absorbing or getting nutrients, or other conditions that affect the intestines. Talk with your health care provider about what your results mean. Questions to ask your health care provider Ask your health care provider, or the department that is doing the test: When will my results be ready? How will I get my results? What are my treatment options? What other tests do I need? What are my next steps? Summary Liver function tests are done to see how well your liver is working. These tests measure various proteins and enzymes in your blood. The results can alert your health care provider to inflammation, damage, or disease in your liver. Talk with your health care provider about what your results mean. This information is not intended to replace advice given to you by your health care provider. Make sure you discuss any questions you have with your health care provider. Document Released: 04/24/2005 Document Revised: 11/09/2018 Document Reviewed: 01/04/2018 [employer] Patient Education 2020 [employer]. Follow Up Care 05/12/2022 23:11:44 With:MD GERSON OSWALD MD Address: [address] [place] [address] [facility] [place] [address]- [phone] When:1-2 days Comments:Please call the office and schedule appointment. With:TRIPP DELGADILLO DO Address: [address] [place], [place] [id number]- When:1-2 days Comments:[facility] 02-10-2023 Note Discharge Instructions Thank you for allowing [facility] to assist you with your healthcare needs. The following is importantdischarge information regarding your hospital visit. Your Care Team PHYSICIAN, NONE Your Diagnosis Cirrhosis What to do next Follow Up Appointments Follow Up with MD GERSON OSWALD MD When Within 1-2 days Why: Please call the office and schedule appointment. Where: [address] [place] [address] [facility] [address] [phone] Follow Up with TRIPP DELGADILLO DO When Within 1-2 days Why: Office will call you at home Small left renal cyst that will need follow-up outpatient. Where: [address], [place] [id number]- The Following Activity and Diet Have Been Ordered for You Discharge Activity - Ordered -- Resume your pre-hospitalization activity, 05/15/22 15:16:00 EST Discharge Diet - Ordered -- No changes were made to your diet during your hospital stay. Please resume your pre hospitalization diet on discharge., 05/15/22 15:16:00 EST The Following Equipment Has Been Ordered for You No qualifying data available. The Following Treatments Have Been Ordered for You Discharge Labs No qualifying data available. Discharge Radiology No qualifying data available. Other Therapies No qualifying data available. Post Acute Orders No qualifying data available. Someone Will Contact You Regarding These Home Health Referrals No home referrals have been ordered for you. No one will call you. Allergies NKA Medications Please ask your primary doctor or pharmacist before taking any other medication not listed, including over the counter drugs, herbal medications, vitamins and or supplements as they may interact withyour home medications. What How Much When Why Instructions Last Dose New traMADol (traMADol 50 mg oral tablet) 0.5 tab(s) by mouth Every 8 hours as needed for for pain Cirrhosis Duration: 3 Days Pickup at [id number] Pharmacy Information [id number]: [address] [place], [place] [phone] Please take this list to your next doctor s visit. Bring all medications you take, including over the counter medications, herbals and other supplements with you to your doctor s visit. Patients and families are reminded to discard old lists and to update any records with all medication providers or retail pharmacies. Education Materials Liver Function Tests Why am I having this test? Liver function tests are done to see how well your liver is working. The proteins and enzymes measured in the test can alert your health care provider to inflammation, damage, or disease in your liver. It is common to have liver function tests: When you are taking certain medicines. If you have liver disease. If you drink a lot of alcohol. When you are not feeling well. When you have other conditions that may affect your liver. During annual physical exams. If you have symptoms such as yellowing of the skin (jaundice), abdominal pain, or nausea and vomiting. What is being tested? These tests measure various substances in your blood. This may include: Alanine transaminase (ALT). This is an enzyme in the liver. Aspartate transaminase (AST). This is an enzyme in the liver, heart, and muscles. Alkaline phosphatase (ALP). This is a protein in the liver, bile ducts, bone, and other body tissues. Total bilirubin. This is a yellow pigment in bile. Albumin. This is a protein in the liver. Prothrombin time and international normalized ratio (PT and INR). PT measures the time it takes foryour blood to clot. INR is a calculation of blood clotting time based on your PT result. It is alsocalculated based on normal ranges defined by the lab that processed your test. Total protein. This includes two proteins, albumin and globulin, found in the blood. What kind of sample is taken? A blood sample is required for this test. It is usually collected by inserting a needle into a blood vessel. How do I prepare for this test? How you prepare will depend on which tests are being done and the reason for doing them. You may need to: Avoid eating for 4 6 hours before the test, or as told by your health care provider. Stop taking certain medicines before your blood test, as told by your health care provider. Tell a health care provider about: All medicines you are taking, including vitamins, herbs, eye drops, creams, and lusl-[id number] medicines. Any medical conditions you have. Whether you are or may be . How are the results reported? Your test results will be reported as values. Your health care provider will compare your results to normal ranges that were established after testing a large group of people (reference ranges). Reference ranges may vary among labs and hospitals. For the substances measured in liver function tests,common reference ranges are: ALT : 10 40 international units/L. Child or adult: 4 36 international units/L at 37 C or 4 36 units/L (SI units). Reference ranges may be higher for older adults. AST 0 5 days old: 35 140 units/L. Child younger than 3 years old: 15 60 units/L. 3 6 years old: 15 50 units/L. 6 12 years old: 10 50 units/L. 12 18 years old: 10 40 units/L. Adult: 0 35 units/L or 0 0.58 microkatals/L (SI units). Reference ranges may be higher for older adults. ALP Child younger than 2 years old: 85 235 units/L. 2 8 years old: 65 210 units/L. 9 15 years old: 60 300 units/L. 16 21 years old: 30 200 units/L. Adult: 30 120 units/L or 0.5 2.0 microkatals/L (SI units). Reference ranges may be higher for older adults. Total bilirubin : 1.0 12.0 mg/dL or 17.1 205 micromoles/L (SI units). Child or adult: 0.3 1.0 mg/dL or 5.1 17 micromoles/L. Albumin Premature : 3.0 4.2 g/dL. : 3.5 5.4 g/dL. : 4.4 5.4 g/dL. Child: 4.0 5.9 g/dL. Adult: 3.5 5.0 g/dL or 35 50 g/L (SI units). PT 11.0 12.5 seconds; 85% 100%. INR 0.8 1.1. Total protein Premature : 4.2 7.6 g/dL. [place]: 4.6 7.4 g/dL. Infant: 6.0 6.7 g/dL. Child: 6.2 8.0 g/dL. Adult: 6.4 8.3 g/dL or 64 83 g/L (SI units). What do the results mean? Results that are within the reference ranges are considered normal. For each substance measured, results outside the reference range can indicate various health issues. ALT Levels above the normal range may indicate liver disease. AST Levels above the normal range may indicate liver disease. Sometimes levels also increase after george, surgery, heart attack, muscle damage, or seizure. ALP Levels above the normal range may be seen in biliary obstruction, liver diseases, bone disease, thyroid disease, tumors, fractures, leukemia, lymphoma, or several other conditions. People with blood type O or B may show higher levels after a fatty meal. Levels below the normal range may indicate bone and teeth conditions, malnutrition, protein deficiency, or Marquez's disease. Total bilirubin Levels above the normal range may indicate problems with the liver, gallbladder, or bile ducts. Albumin Levels above the normal range may indicate dehydration. They may also be caused by a diet that is high in protein. Levels below the normal range may indicate kidney disease, liver disease, or malabsorption of nutrients. PT and INR Levels above the normal range mean that your blood is clotting slower than normal. This may be due to blood disorders, liver disorders, or low levels of vitamin K. Total protein Levels above the normal range may be due to infection or other diseases. Levels below the normal range may be due to an immune system disorder, bleeding, egorge, kidney disorder, liver disease, trouble absorbing or getting nutrients, or other conditions that affect the intestines. Talk with your health care provider about what your results mean. Questions to ask your health care provider Ask your health care provider, or the department that is doing the test: When will my results be ready? How will I get my results? What are my treatment options? What other tests do I need? What are my next steps? Summary Liver function tests are done to see how well your liver is working. These tests measure various proteins and enzymes in your blood. The results can alert your health care provider to inflammation, damage, or disease in your liver. Talk with your health care provider about what your results mean. This information is not intended to replace advice given to you by your health care provider. Make sure you discuss any questions you have with your health care provider. Document Released: 04/24/2005 Document Revised: 11/09/2018 Document Reviewed: 01/04/2018 [employer] Patient Education 2020 [employer]. Liver Function Tests Why am I having this test? Liver function tests are done to see how well your liver is working. The proteins and enzymes measured in the test can alert your health care provider to inflammation, damage, or disease in your liver. It is common to have liver function tests: When you are taking certain medicines. If you have liver disease. If you drink a lot of alcohol. When you are not feeling well. When you have other conditions that may affect your liver. During annual physical exams. If you have symptoms such as yellowing of the skin (jaundice), abdominal pain, or nausea and vomiting. What is being tested? These tests measure various substances in your blood. This may include: Alanine transaminase (ALT). This is an enzyme in the liver. Aspartate transaminase (AST). This is an enzyme in the liver, heart, and muscles. Alkaline phosphatase (ALP). This is a protein in the liver, bile ducts, bone, and other body tissues. Total bilirubin. This is a yellow pigment in bile. Albumin. This is a protein in the liver. Prothrombin time and international normalized ratio (PT and INR). PT measures the time it takes foryour blood to clot. INR is a calculation of blood clotting time based on your PT result. It is alsocalculated based on normal ranges defined by the lab that processed your test. Total protein. This includes two proteins, albumin and globulin, found in the blood. What kind of sample is taken? A blood sample is required for this test. It is usually collected by inserting a needle into a blood vessel. How do I prepare for this test? How you prepare will depend on which tests are being done and the reason for doing them. You may need to: Avoid eating for 4 6 hours before the test, or as told by your health care provider. Stop taking certain medicines before your blood test, as told by your health care provider. Tell a health care provider about: All medicines you are taking, including vitamins, herbs, eye drops, creams, and nwgi-cwc-oobftmt medicines. Any medical conditions you have. Whether you are or may be . How are the results reported? Your test results will be reported as values. Your health care provider will compare your results to normal ranges that were established after testing a large group of people (reference ranges). Reference ranges may vary among labs and hospitals. For the substances measured in liver function tests,common reference ranges are: ALT : 10 40 international units/L. Child or adult: 4 36 international units/L at 37 C or 4 36 units/L (SI units). Reference ranges may be higher for older adults. AST [place] 0 5 days old: 35 140 units/L. Child younger than 3 years old: 15 60 units/L. 3 6 years old: 15 50 units/L. 6 12 years old: 10 50 units/L. 12 18 years old: 10 40 units/L. Adult: 0 35 units/L or 0 0.58 microkatals/L (SI units). Reference ranges may be higher for older adults. ALP Child younger than 2 years old: 85 235 units/L. 2 8 years old: 65 210 units/L. 9 15 years old: 60 300 units/L. 16 21 years old: 30 200 units/L. Adult: 30 120 units/L or 0.5 2.0 microkatals/L (SI units). Reference ranges may be higher for older adults. Total bilirubin [place]: 1.0 12.0 mg/dL or 17.1 205 micromoles/L (SI units). Child or adult: 0.3 1.0 mg/dL or 5.1 17 micromoles/L. Albumin Premature infant: 3.0 4.2 g/dL. : 3.5 5.4 g/dL. : 4.4 5.4 g/dL. Child: 4.0 5.9 g/dL. Adult: 3.5 5.0 g/dL or 35 50 g/L (SI units). PT 11.0 12.5 seconds; 85% 100%. INR 0.8 1.1. Total protein Premature : 4.2 7.6 g/dL. : 4.6 7.4 g/dL. : 6.0 6.7 g/dL. Child: 6.2 8.0 g/dL. Adult: 6.4 8.3 g/dL or 64 83 g/L (SI units). What do the results mean? Results that are within the reference ranges are considered normal. For each substance measured, results outside the reference range can indicate various health issues. ALT Levels above the normal range may indicate liver disease. AST Levels above the normal range may indicate liver disease. Sometimes levels also increase after george, surgery, heart attack, muscle damage, or seizure. ALP Levels above the normal range may be seen in biliary obstruction, liver diseases, bone disease, thyroid disease, tumors, fractures, leukemia, lymphoma, or several other conditions. People with blood type O or B may show higher levels after a fatty meal. Levels below the normal range may indicate bone and teeth conditions, malnutrition, protein deficiency, or Marquez's disease. Total bilirubin Levels above the normal range may indicate problems with the liver, gallbladder, or bile ducts. Albumin Levels above the normal range may indicate dehydration. They may also be caused by a diet that is high in protein. Levels below the normal range may indicate kidney disease, liver disease, or malabsorption of nutrients. PT and INR Levels above the normal range mean that your blood is clotting slower than normal. This may be due to blood disorders, liver disorders, or low levels of vitamin K. Total protein Levels above the normal range may be due to infection or other diseases. Levels below the normal range may be due to an immune system disorder, bleeding, george, kidney disorder, liver disease, trouble absorbing or getting nutrients, or other conditions that affect the intestines. Talk with your health care provider about what your results mean. Questions to ask your health care provider Ask your health care provider, or the department that is doing the test: When will my results be ready? How will I get my results? What are my treatment options? What other tests do I need? What are my next steps? Summary Liver function tests are done to see how well your liver is working. These tests measure various proteins and enzymes in your blood. The results can alert your health care provider to inflammation, damage, or disease in your liver. Talk with your health care provider about what your results mean. This information is not intended to replace advice given to you by your health care provider. Make sure you discuss any questions you have with your health care provider. Document Released: 04/24/2005 Document Revised: 11/09/2018 Document Reviewed: 01/04/2018 [employer] Patient Education 2020 [employer] Liver Function Tests Why am I having this test? Liver function tests are done to see how well your liver is working. The proteins and enzymes measured in the test can alert your health care provider to inflammation, damage, or disease in your liver. It is common to have liver function tests: When you are taking certain medicines. If you have liver disease. If you drink a lot of alcohol. When you are not feeling well. When you have other conditions that may affect your liver. During annual physical exams. If you have symptoms such as yellowing of the skin (jaundice), abdominal pain, or nausea and vomiting. What is being tested? These tests measure various substances in your blood. This may include: Alanine transaminase (ALT). This is an enzyme in the liver. Aspartate transaminase (AST). This is an enzyme in the liver, heart, and muscles. Alkaline phosphatase (ALP). This is a protein in the liver, bile ducts, bone, and other body tissues. Total bilirubin. This is a yellow pigment in bile. Albumin. This is a protein in the liver. Prothrombin time and international normalized ratio (PT and INR). PT measures the time it takes foryour blood to clot. INR is a calculation of blood clotting time based on your PT result. It is alsocalculated based on normal ranges defined by the lab that processed your test. Total protein. This includes two proteins, albumin and globulin, found in the blood. What kind of sample is taken? A blood sample is required for this test. It is usually collected by inserting a needle into a blood vessel. How do I prepare for this test? How you prepare will depend on which tests are being done and the reason for doing them. You may need to: Avoid eating for 4 6 hours before the test, or as told by your health care provider. Stop taking certain medicines before your blood test, as told by your health care provider. Tell a health care provider about: All medicines you are taking, including vitamins, herbs, eye drops, creams, and ldtx-wyc-ijfonov medicines. Any medical conditions you have. Whether you are or may be . How are the results reported? Your test results will be reported as values. Your health care provider will compare your results to normal ranges that were established after testing a large group of people (reference ranges). Reference ranges may vary among labs and hospitals. For the substances measured in liver function tests,common reference ranges are: ALT Infant: 10 40 international units/L. Child or adult: 4 36 international units/L at 37 C or 4 36 units/L (SI units). Reference ranges may be higher for older adults. AST 0 5 days old: 35 140 units/L. Child younger than 3 years old: 15 60 units/L. 3 6 years old: 15 50 units/L. 6 12 years old: 10 50 units/L. 12 18 years old: 10 40 units/L. Adult: 0 35 units/L or 0 0.58 microkatals/L (SI units). Reference ranges may be higher for older adults. ALP Child younger than 2 years old: 85 235 units/L. 2 8 years old: 65 210 units/L. 9 15 years old: 60 300 units/L. 16 21 years old: 30 200 units/L. Adult: 30 120 units/L or 0.5 2.0 microkatals/L (SI units). Reference ranges may be higher for older adults. Total bilirubin : 1.0 12.0 mg/dL or 17.1 205 micromoles/L (SI units). Child or adult: 0.3 1.0 mg/dL or 5.1 17 micromoles/L. Albumin Premature : 3.0 4.2 g/dL. : 3.5 5.4 g/dL. Infant: 4.4 5.4 g/dL. Child: 4.0 5.9 g/dL. Adult: 3.5 5.0 g/dL or 35 50 g/L (SI units). PT 11.0 12.5 seconds; 85% 100%. INR 0.8 1.1. Total protein Premature : 4.2 7.6 g/dL. [place]: 4.6 7.4 g/dL. Infant: 6.0 6.7 g/dL. Child: 6.2 8.0 g/dL. Adult: 6.4 8.3 g/dL or 64 83 g/L (SI units). What do the results mean? Results that are within the reference ranges are considered normal. For each substance measured, results outside the reference range can indicate various health issues. ALT Levels above the normal range may indicate liver disease. AST Levels above the normal range may indicate liver disease. Sometimes levels also increase after george, surgery, heart attack, muscle damage, or seizure. ALP Levels above the normal range may be seen in biliary obstruction, liver diseases, bone disease, thyroid disease, tumors, fractures, leukemia, lymphoma, or several other conditions. People with blood type O or B may show higher levels after a fatty meal. Levels below the normal range may indicate bone and teeth conditions, malnutrition, protein deficiency, or Marquez's disease. Total bilirubin Levels above the normal range may indicate problems with the liver, gallbladder, or bile ducts. Albumin Levels above the normal range may indicate dehydration. They may also be caused by a diet that is high in protein. Levels below the normal range may indicate kidney disease, liver disease, or malabsorption of nutrients. PT and INR Levels above the normal range mean that your blood is clotting slower than normal. This may be due to blood disorders, liver disorders, or low levels of vitamin K. Total protein Levels above the normal range may be due to infection or other diseases. Levels below the normal range may be due to an immune system disorder, bleeding, george, kidney disorder, liver disease, trouble absorbing or getting nutrients, or other conditions that affect the intestines. Talk with your health care provider about what your results mean. Questions to ask your health care provider Ask your health care provider, or the department that is doing the test: When will my results be ready? How will I get my results? What are my treatment options? What other tests do I need? What are my next steps? Summary Liver function tests are done to see how well your liver is working. These tests measure various proteins and enzymes in your blood. The results can alert your health care provider to inflammation, damage, or disease in your liver. Talk with your health care provider about what your results mean. This information is not intended to replace advice given to you by your health care provider. Make sure you discuss any questions you have with your health care provider. Document Released: 04/24/2005 Document Revised: 11/09/2018 Document Reviewed: 01/04/2018 Elsevier Patient Education 2020 [employer] Additional Information VACCINATE! IT SAVES LIVES! Members of the community who have not yet received the COVID-19 vaccine and would like to receive it can visit one of [facility] vaccine clinics. There are many vaccine clinic locations within the [facility]. For locations and available times, please visit [email or web address].gov/. It is important to note that some COVID mobile vaccine clinics are held outdoors and may be canceled in rainy or stormy conditions. To learn more about pediatric vaccinations (ages 5-11), we invite you to visit the [facility] webpage. [email or web address]/[email or web address]-[email or web address] [email or web address] learn more about the COVID-19 vaccine, we invite you to visit the [facility] website for a list of frequently asked questions. [email or web address].pdf [facility] Patient Portal Access Instructions: Stay connected with your healthcare team and access your personal medical information anytime with the [facility] Patient Portal.If you would like a full copy of your medical records, please contact the [facility] Medical Records Department, Wednesday through Wednesday between 8a.m. and 4:30p.m. Please follow the directions below to access the portal: 1.Access the email account you provided upon registration to the [facility].2.Look for an invitation email from [facility].3.Open the email and access the invitation link: Accept Invitation to [facility].Fill in the required mujica to create your account. Sign into [email or web address] with your username and password that you created in the above steps to stay up to date. You can then view a summary of results, a summary of your visits, and the ability to download your summaries to your computer or send the information securely to a physician. Remember that your healthcare information is confidential, so carefully consider who you will allow to register on the [facility] Patient Portal for access to your information. You can also access the [facility] Patient Portal on the [employer] narciso. Simply click on Health Records under [employer] and then click on the [facility] logo. HOW TO SAFELY DISPOSE OF PRESCRIPTION MEDICATIONS Please use one of the following methods to safely dispose of your unused medications. 1.Use a drug disposal kit: the drug disposal pouch allows you to safely discard your old and unuseddrugs. Ask your nurse to give you one when you are discharged.2.Visit a local take-back location: Many local pharmacies and police departments have programs that collect old and unwanted prescriptiondrugs. Call your local pharmacy or go to http://[employer]/2S0Fk8y to find one close to you.3.Make use of household items: Use cat litter or old coffee grounds to dispose medications if other options arenot available. Mix your drugs with these household products, seal them in an airtight container andthrow it into the garbage. Call [facility]: [phone] to be sure your drugs can be disposed of in this way. Some medicines may require a different approach.4.Never flush your medications down the toilet. IF YOU HAVE BEEN PRESCRIBED AN OPIOID FOR PAIN If you have been prescribed an opioid (such as hydrocodone, oxycodone or morphine), it is critical to understand the possible side effects and risks of opioid pain medications. Even when taken as directed, opioids can have several side effects including: Tolerance, meaning you might need to take more of a medication for the same pain relief. Nausea, vomiting and/or constipation. Sleepiness, dizziness, dry mouth, confusion, depression or itching. Physical dependence, meaning you have withdrawal symptoms when a medication is stopped, can develop within a few days. KNOW YOUR RESPONSIBILITIES It is important to know exactly how much and how often to take the opioid pain medications you are prescribed. Never take opioids in higher amounts or more often than prescribed. Do not combine opioids with alcohol or other drugs that cause drowsiness, such as benzodiazepines, also known as benzos, including diazepam and alprazolam, muscle relaxants or sleep aids. Never sell or share prescription opioids. This is illegal. Store opioids in a secure place and out of reach of others (including children, family, friends and visitors). The last page of this document has been signed and retained as a CHART COPY. Signatures Patient Education Materials Liver Function Tests Liver Function Tests Liver Function Tests Medication Leaflets My discharge plan and instructions have been reviewed and explained to me and I,ALEXEI MAXWELL understand my current condition and have read and understand these discharge instructions. I have received a written copy of the plan/instructions. If I have questions, I am aware that I should contact my doctor. Patient/Lab Rn Signature: Date/Time: Relationship to Patient: Witness Name/Signature: Date[facility]Time: [id number] Discharge summary Date of Service 05/15/2022 Discharge Diagnosis 1. Cirrhosis (K74.60 - ICD-10-CM) Ordered: traMADol 50 mg oral tablet; Dose : 25 mg = 0.5 tab(s), Oral, q8h, PRN for pain, X 3 day(s), # 5 tab(s), 0 Refill(s), 05/18/22 15:15:00 EST, Pharmacy: [facility]/pharmacy #[id number], Cirrhosis, 160, cm, 05/12/22 23:42:00 EST, Height, 54.4 Additional Orders: Ordered: Discharge,05/15/22 15:16:00 EST, Discharged to: Home Ordered: Discharge Activity,Resume your pre-hospitalization activity, 05/15/22 15:16:00 EST Ordered: Discharge Diet,No changes were made to your diet during your hospital stay. Please resume your pre hospitalization diet on discharge., 05/15/22 15:16:00 EST End of Orders Hospital Course 32 yo female who does not follow regularly with PCP presents from [facility] with complaints of abdominal distension. Both her and her ate beans a few days ago and felt nauseous, but improved. Persistent symptoms brought patient to [place] where CT A/P and US revealed evidence of cirrhosis. Confirmatory transaminitis on labs: AST/ALT: 726/593, Tbili: 1.6, Lipase: 89; UA+ nitrites. Started on Rocephin. Culture positive for E. coli. Also noted to have thrombocytopenia and splenomegaly. Patient does have a cyst on her left kidney and will need to follow-up as an outpatient. GI was consulted and elastography was obtained which demonstrated mild to moderate fibrosis, MRI liver currently pending. MRI liver demonstrated cirrhosis with no focal liver mass, portal hypertension with splenomegaly, small GE junction varices. Discussed with GI who did not recommend beta-chelo, Aldactone, or Lasix at this time. Recommended outpatient follow-up with EGD and plan for liver biopsy. Patient did have some lower abdominal pain this morning, this has resolved since she has had a bowel movement. Will be discharged on tramadol to assist with pain management. Avoid Tylenol or NSAIDs. I have reviewed the [place] Automated Rx Reporting System (OARRS) report for this patient for refill pattern and other prescriber involvement as part of the appropriate surveillance for the provision of acute and chronic controlled medications. The report was requested and reviewed on the date of this entry, and was considered in the prescribing process. Discussed with patient and at the bedside,discussed with Dr. Orantes. Allergies NKA Consults Consult to Physician - Ordered -- 05/13/22 8:16:00 EST, KARISHMA DIXON MD, Routine, Transaminits, cirrhosis Physical Exam Vitals and Measurements T: 36.6 C (Oral) TMIN: 36.6 C (Oral) TMAX: 36.8 C (Oral) HR: 94 RR: 20 BP: 112/74 SpO2: 100% WT: 54.4 kg Weight Current Weight Dosing Weight: 54.4 kg (05/15/22) Current Weight: 54.4 kg (05/13/22) Dosing Weight: 53.2 kg (05/12/22) Physical Exam General: No acute distress. Alert, appropriate and awake, oriented to time, people and place Skin: No rash. Warm, Dry, Intact HEENT: Head is normocephalic and atraumatic. No lesions. Pupils equal in size. Extraocular movements within normal limits. Nose: No septal deviation. Mouth: Oropharynx mucosa is without lesion. Neck: Supple. No lymphadenopathy, thyromegaly noted. Lungs: Bilaterally clear/diminished breath sounds with no crepitation or wheeze. Unlabored Cardiovascular: Heart is regular rhythm, S1S2, No extra-audible heart tones Abdomen: Abdomen is soft, nontender. Bowel sounds positive all four quadrants. Extremities: No clubbing, cyanosis or edema. Peripheral pulses palpable. No calf tenderness. Adequate peripheral circulation. Neurological: Following simple commands, moving all extremities. Code Status Code Status - Ordered -- 05/13/22 0:30:00 EST, Full Code, Constant Order Admission Date 05/13/2022 Discharge Date 05/15/2022 Patient Instructions You be discharged home and are to follow-up with GI outpatient. A prescription for pain medicine has been sent to pharmacy. Follow-up with your primary care provider as well, return to emergency department for any new or worsening symptoms. Medications New Prescription traMADol (traMADol 50 mg oral tablet)0.5 tab(s) by mouth every 8 hours as needed for pain for 3 Days. Refills: 0. Follow Up Follow Up with MD GERSON OSWALD MD When Within 1-2 days Where: [id number] [facility] [place] [address] [phone] Follow Up with TRIPP DELGADILLO DO When Within 1-2 days Why: Office will call you at home Where: [address] [place] [address]- Follow Up Appointments No qualifying data available. Follow Up Labs/Studies Discharge Labs No Follow-up Labs Discharge Studies No Follow-up Studies Discharge Diet Discharge Diet - Ordered -- No changes were made to your diet during your hospital stay. Please resume your pre hospitalization diet on discharge., 05/15/22 15:16:00 EST Discharge Activity Discharge Activity - Ordered -- Resume your pre-hospitalization activity, 05/15/22 15:16:00 EST Condition on Discharge Stable Discharge Disposition Home Information Provided To Patient and Time Spent Greater than 30 minutes spent on discharge with greater than 50% that time spent on direct patient care and care coordination. Digitally Signed by KRISTOPHER BYRD on 05/15/2022 03:23 PM [id number] Gastro[facility]ology Progress note Date of Service 05/15/2022 Subjective Patient without new complaint Eating and tolerating diet No dyspepsia no dysphagia No abdominal pain No signs of GI bleeding Objective Vitals and Measurements T: 36.8 C (Oral) TMIN: 36.6 C (Oral) TMAX: 36.8 C (Oral) HR: 90(Apical) RR: 18 BP: 110/70 SpO2: 97%WT: 54.4 kg MRI no noted mass or lesion Positive ASMA Remaining labs stable Intake and Output 7AM Yesterday to 7AM Today Intake and Output (Last 24 hours) Intake Output Stool Count 3.00 Urine Count 4.00 Total Summary Total Intake 0.00 Total Output 0.00 Fluid Balance 0.00 Physical Exam No acute distress no jaundice Abdomen flat positive bowel sounds soft nontender Weight Current Weight Dosing Weight: 54.4 kg (05/15/22) Current Weight: 54.4 kg (05/13/22) Dosing Weight: 53.2 kg (05/12/22) Assessment/Plan 1. Cirrhosis Questionable autoimmune liver disease Plan Elective EGD to fully assess May need eventual liver biopsy to better define Patient to avoid gbzr-wtt-wihasjz medications including herbals Avoid alcohol Follow-up with us for OV and management options Disposition per Dr. Oswald Digitally Signed by EULA PIERCE on 05/15/2022 01:48 PM [facility] [id number] Gastroenterology Progress note Date of Service 05/15/2022 Subjective Patient without new complaint Eating and tolerating diet No dyspepsia no dysphagia No abdominal pain No signs of GI bleeding Objective Vitals and Measurements T: 36.8 C (Oral) TMIN: 36.6 C (Oral) TMAX: 36.8 C (Oral) HR: 90(Apical) RR: 18 BP: 110/70 SpO2: 97%WT: 54.4 kg MRI no noted mass or lesion Positive ASMA Remaining labs stable Intake and Output 7AM Yesterday to 7AM Today Intake and Output (Last 24 hours) Intake Output Stool Count 3.00 Urine Count 4.00 Total Summary Total Intake 0.00 Total Output 0.00 Fluid Balance 0.00 Physical Exam No acute distress no jaundice Abdomen flat positive bowel sounds soft nontender Weight Current Weight Dosing Weight: 54.4 kg (05/15/22) Current Weight: 54.4 kg (05/13/22) Dosing Weight: 53.2 kg (05/12/22) Assessment/Plan 1. Cirrhosis Questionable autoimmune liver disease Plan Elective EGD to fully assess May need eventual liver biopsy to better define Patient to avoid ilha-pto-abhpxgh medications including herbals Avoid alcohol Follow-up with us for OV and management options Disposition per Dr. Oswald Digitally Signed by EULA PIERCE on 05/15/2022 01:48 PM [facility] [id number] Note Date of Service 05/14/2022 Chief Complaint Abdominal distention Subjective 32 yo female who does not follow regularly with PCP presents from [facility] with complaints of abdominal distension. Both her and her ate beans a few days ago and felt nauseous, but improved. Persistent symptoms brought patient to [place] where CT A/P and US revealed evidence of cirrhosis. Confirmatory transaminitis on labs: AST/ALT: 726/593, Tbili: 1.6, Lipase: 89; UA+ nitrites. Started on Rocephin. Culture positive for E. coli. Also noted to have thrombocytopenia and splenomegaly. Patient does have a cyst on her left kidney and will need to follow-up as an outpatient. GI was consulted and elastography was obtained which demonstrated mild to moderate fibrosis, MRI liver currently pending. On my exam, patient is laying in bed, and parents at the bedside. Endorses mild abdominal distention, tolerating oral intake. Denies chest pain, shortness of breath. No other complaints. Objective Vitals and Measurements T: 37.0 C (Oral) TMIN: 36.7 C (Oral) TMAX: 37.0 C (Oral) HR: 82(Apical) RR: 16 BP: 111/70 SpO2: 98% Intake and Output 7AM Yesterday to 7AM Today Intake and Output (Last 24 hours) Intake Output Stool Count 0.00 Urine Count 2.00 Total Summary Total Intake 0.00 Total Output 0.00 Fluid Balance 0.00 Physical Exam Physical Exam General: No acute distress. Alert, appropriate and awake, oriented to time, people and place Skin: No rash. Warm, Dry, Intact HEENT: Head is normocephalic and atraumatic. No lesions. Pupils equal in size. Extraocular movements within normal limits. Nose: No septal deviation. Mouth: Oropharynx mucosa is without lesion. Neck: Supple. No lymphadenopathy, thyromegaly noted. Lungs: Bilaterally clear/diminished breath sounds with no crepitation or wheeze. Unlabored Cardiovascular: Heart is regular rhythm, S1S2, No extra-audible heart tones Abdomen: Mild tenderness on palpation. Bowel sounds present. Extremities: No clubbing, cyanosis or edema. Peripheral pulses palpable. No calf tenderness. Adequate peripheral circulation. Neurological: Following simple commands, moving all extremities. Weight Current Weight Dosing Weight: 53.2 kg (05/12/22) Current Weight: 54.4 kg (05/13/22) Medications Medications (7) Active Scheduled: (3) cefTRIAXone IVP syringe 1 gram(s) 10 mL, IV Push (INT), qDay heparin 5,000 units/mL (1 mL) vial 5,000 unit(s) 1 mL, Subcutaneous, q8h pantoprazole 40 mg EC tablet 40 mg 1 tab(s), Oral, qDayAC Continuous: (0) PRN: (4) acetaminophen 325 mg Tablet 650 mg 2 tab(s), Oral, q4h acetaminophen-HYDROcodone 325-5 mg tablet 1 tab(s), Oral, q4h HYDROmorphone 0.5 mg/0.5 mL PF syringe 0.5 mg 0.5 mL, IV Push, q3h ondansetron 2 mg/ 1 mL 2 mL INJ 4 mg 2 mL, IV Push, q4h Lab Results 05/14 06:17 WBC: 2.8 L Hgb: 12.4 Hct: 36.1 Platelet: 81 L Neutrophil %: 61.6 Glucose Level: 83 Sodium Level: 141 Potassium Level: 3.6 BUN: 8.0 Creatinine Lvl (s): 0.53 EKG No qualifying data available. Assessment/Plan 1. Liver cirrhosis 2. UTI 3. Splenomegaly 4. Thrombocytopenia 5. Left renal cyst Presented with abdominal distention, imaging concerning for cirrhosis. Ultrasound elastography demonstrates mild to moderate liver fibrosis, MRI liver currently pending. INR 1.2 on admission, total bili 2.3 today, AST/ALT 480/539. Discussed with GI. UTI, culture positive for E. coli. Continue Rocephin. Splenomegaly, most likely secondary to cirrhosis. Thrombocytopenia, platelets 81 today, no signs of bleeding. Secondary to cirrhosis. Left renal cyst, incidental finding. Left renal cyst, incidental finding. Outpatient follow-up recommended. CODE STATUS: Full code Discussed with patient and family at bedside, discussed with Dr. Orantes. Time Spent 35 minutes spent with greater than 50% of that time spent on patient care and care coordination. Digitally Signed by KRISTOPHER BYRD on 05/14/2022 03:01 PM [facility] [id number] Note ORIGINAL EXAMINATION: MRI OF THE ABDOMEN LIMITED without and with CONTRAST, 05/14/2022 3:39 pm TECHNIQUE: Multiplanar multisequence MRI of the abdomen limited was performed without and with the administration of intravenous contrast. Liver protocol. COMPARISON: CT scan May 12, 2022 HISTORY: ORDERING SYSTEM PROVIDED HISTORY: Reason for Exam: elevated afp FINDINGS: Chemical shift imaging is unremarkable. Liver contour is nodular, compatible with cirrhosis. Pre contrast images show no focal liver lesion, and there is no restricted diffusion seen. Early arterial phase post IV contrast scans show no abnormal liver enhancement, and subsequent images show normal liver enhancement as well. The parenchyma is very minimally heterogeneous also compatible with the history of cirrhosis. Ascites and splenomegaly are again seen. There is a small left renal cyst present. Natasha hepatis adenopathy is again demonstrated. Portal, splenic and superior mesenteric veins are patent. There is a recanalized periumbilical vein. Small gastroesophageal junction varices are also evident. No additional contributory finding. IMPRESSION: 1. Cirrhosis. No focal liver mass to suggest hepatocellular carcinoma. 2. Portal hypertension with splenomegaly, ascites, recanalized periumbilical vein, and small gastroesophageal junction varices. 3. Natasha hepatis adenopathy is likely reactive or hyperplastic related to liver disease. Interpreted by: Kristopher Vazquez MD Preliminary Report By: Kristopher Vazquez MD Electronically signed By Kristopher Vazquez MD Dictated Date: 05/14/2022 3:41:07 PM Prelim Date: 05/14/2022 3:45:42 PM Sign Date: 05/14/2022 3:45:42 PM Ordering Provider: [facility] [place]02-09-2023 Note Date of Service 05/14/2022 Chief Complaint Abdominal distention Subjective 32 yo female who does not follow regularly with PCP presents from [facility] with complaints of abdominal distension. Both her and her ate beans a few days ago and felt nauseous, but improved. Persistent symptoms brought patient to [place] where CT A/P and US revealed evidence of cirrhosis. Confirmatory transaminitis on labs: AST/ALT: 726/593, Tbili: 1.6, Lipase: 89; UA+ nitrites. Started on Rocephin. Culture positive for E. coli. Also noted to have thrombocytopenia and splenomegaly. Patient does have a cyst on her left kidney and will need to follow-up as an outpatient. GI was consulted and elastography was obtained which demonstrated mild to moderate fibrosis, MRI liver currently pending. On my exam, patient is laying in bed, and parents at the bedside. Endorses mild abdominal distention, tolerating oral intake. Denies chest pain, shortness of breath. No other complaints. Objective Vitals and Measurements T: 37.0 C (Oral) TMIN: 36.7 C (Oral) TMAX: 37.0 C (Oral) HR: 82(Apical) RR: 16 BP: 111/70 SpO2: 98% Intake and Output 7AM Yesterday to 7AM Today Intake and Output (Last 24 hours) Intake Output Stool Count 0.00 Urine Count 2.00 Total Summary Total Intake 0.00 Total Output 0.00 Fluid Balance 0.00 Physical Exam Physical Exam General: No acute distress. Alert, appropriate and awake, oriented to time, people and place Skin: No rash. Warm, Dry, Intact HEENT: Head is normocephalic and atraumatic. No lesions. Pupils equal in size. Extraocular movements within normal limits. Nose: No septal deviation. Mouth: Oropharynx mucosa is without lesion. Neck: Supple. No lymphadenopathy, thyromegaly noted. Lungs: Bilaterally clear/diminished breath sounds with no crepitation or wheeze. Unlabored Cardiovascular: Heart is regular rhythm, S1S2, No extra-audible heart tones Abdomen: Mild tenderness on palpation. Bowel sounds present. Extremities: No clubbing, cyanosis or edema. Peripheral pulses palpable. No calf tenderness. Adequate peripheral circulation. Neurological: Following simple commands, moving all extremities. Weight Current Weight Dosing Weight: 53.2 kg (05/12/22) Current Weight: 54.4 kg (05/13/22) Medications Medications (7) Active Scheduled: (3) cefTRIAXone IVP syringe 1 gram(s) 10 mL, IV Push (INT), qDay heparin 5,000 units/mL (1 mL) vial 5,000 unit(s) 1 mL, Subcutaneous, q8h pantoprazole 40 mg EC tablet 40 mg 1 tab(s), Oral, qDayAC Continuous: (0) PRN: (4) acetaminophen 325 mg Tablet 650 mg 2 tab(s), Oral, q4h acetaminophen-HYDROcodone 325-5 mg tablet 1 tab(s), Oral, q4h HYDROmorphone 0.5 mg/0.5 mL PF syringe 0.5 mg 0.5 mL, IV Push, q3h ondansetron 2 mg/ 1 mL 2 mL INJ 4 mg 2 mL, IV Push, q4h Lab Results 05/14 06:17 WBC: 2.8 L Hgb: 12.4 Hct: 36.1 Platelet: 81 L Neutrophil %: 61.6 Glucose Level: 83 Sodium Level: 141 Potassium Level: 3.6 BUN: 8.0 Creatinine Lvl (s): 0.53 EKG No qualifying data available. Assessment/Plan 1. Liver cirrhosis 2. UTI 3. Splenomegaly 4. Thrombocytopenia 5. Left renal cyst Presented with abdominal distention, imaging concerning for cirrhosis. Ultrasound elastography demonstrates mild to moderate liver fibrosis, MRI liver currently pending. INR 1.2 on admission, total bili 2.3 today, AST/ALT 480/539. Discussed with GI. UTI, culture positive for E. coli. Continue Rocephin. Splenomegaly, most likely secondary to cirrhosis. Thrombocytopenia, platelets 81 today, no signs of bleeding. Secondary to cirrhosis. Left renal cyst, incidental finding. Left renal cyst, incidental finding. Outpatient follow-up recommended. CODE STATUS: Full code Discussed with patient and family at bedside, discussed with Dr. Orantes. Time Spent 35 minutes spent with greater than 50% of that time spent on patient care and care coordination. Digitally Signed by KRISTOPHER BYRD on 05/14/2022 03:01 PM [facility] [id number] Note ORIGINAL EXAMINATION: MRI OF THE ABDOMEN LIMITED without and with CONTRAST, 05/14/2022 3:39 pm TECHNIQUE: Multiplanar multisequence MRI of the abdomen limited was performed without and with the administration of intravenous contrast. Liver protocol. COMPARISON: CT scan May 12, 2022 HISTORY: ORDERING SYSTEM PROVIDED HISTORY: Reason for Exam: elevated afp FINDINGS: Chemical shift imaging is unremarkable. Liver contour is nodular, compatible with cirrhosis. Pre contrast images show no focal liver lesion, and there is no restricted diffusion seen. Early arterial phase post IV contrast scans show no abnormal liver enhancement, and subsequent images show normal liver enhancement as well. The parenchyma is very minimally heterogeneous also compatible with the history of cirrhosis. Ascites and splenomegaly are again seen. There is a small left renal cyst present. Natasha hepatis adenopathy is again demonstrated. Portal, splenic and superior mesenteric veins are patent. There is a recanalized periumbilical vein. Small gastroesophageal junction varices are also evident. No additional contributory finding. IMPRESSION: 1. Cirrhosis. No focal liver mass to suggest hepatocellular carcinoma. 2. Portal hypertension with splenomegaly, ascites, recanalized periumbilical vein, and small gastroesophageal junction varices. 3. Natasha hepatis adenopathy is likely reactive or hyperplastic related to liver disease. Interpreted by: Kristopher Vazquez MD Preliminary Report By: Kristopher Vazquez MD Electronically signed By Kristopher Vazquez MD Dictated Date: 05/14/2022 3:41:07 PM Prelim Date: 05/14/2022 3:45:42 PM Sign Date: 05/14/2022 3:45:42 PM Ordering Provider: [facility]02-09-2023 Note ORIGINAL EXAMINATION: Hepatic elastography and duplex abdominal Doppler TECHNIQUE: 2D Shear Wave Elastography of the liver was performed in the right lobe. Color Doppler and spectral analysis of the portal hepatic venous system is also performed. COMPARISON: CT 05/12/2022 HISTORY: Ascites, liver fibrosis, cirrhosis, splenomegaly FINDINGS: Median velocity: 1.71 m/s IQR/median ratio: 5.8% (Value less than or equal to 15% should be seen to ensure exam adequacy.) The main portal vein is 1 cm in diameter which is normal. It is patent with antegrade flow on color Doppler. There are normal portal venous waveforms in this vessel. The splenic vein posterior to the pancreas and the right and left portal venous branches are also patent with antegrade flow. All 3 hepatic veins are patent with normal flow direction. There is normal low resistance arterial waveforms in the proper hepatic artery. IMPRESSION: Elastography indicates a mild to moderate risk of clinically significant liver fibrosis. Normal portal venous Doppler. No thrombosis or flow reversal is seen. Shear Wave Liver Elastography-liver fibrosis staging Median Velocity: Recommendation: 1.35-1.66 m/s (5.48 kPa - 8.29 kPa) Normal to mild risk of clinically significant liver fibrosis : METAVIR Stage F1 1.66-1.77 m/s (8.29 kPa - 9.40 kPa) Tbbz-ff-inppynaz risk of clinically significant liver fibrosis. (METAVIR Stage F2) 1.77-1.99 m/s (9.40 kPa - 11.9 kPa) Moderate to severe risk of clinically significant liver fibrosis (METAVIR Stage F3) > 1.99 m/s (> 11.9 kPa) Advanced Fibrosis and/or Cirrhosis: (METAVIR Stage F4) Interpreted by: Gagan Hampton MD Preliminary Report By: Gagan Hampton MD Electronically signed By Gagan Hampton MD Dictated Date: 05/14/2022 11:20:49 AM Prelim Date: 05/14/2022 11:23:32 AM Sign Date: 05/14/2022 11:23:32 AM Ordering Provider: [facility]02-09-2023 Gastroenterology Progress note Date of Service 05/14/2022 Chief Complaint Cirrhosis Subjective Doing well today. Passing flatus but no bowel movement. Still complaining of abdominal pain. Objective Vitals and Measurements T: 37.0 C (Oral) TMIN: 36.7 C (Oral) TMAX: 37.0 C (Oral) HR: 82(Apical) RR: 16 BP: 111/70 SpO2: 98% Physical Exam Abdomen: Left upper quadrant mild tenderness on deep palpation. Extremities: No edema. Weight Current Weight Dosing Weight: 53.2 kg (05/12/22) Current Weight: 54.4 kg (05/13/22) Medications Medications (7) Active Scheduled: (3) cefTRIAXone IVP syringe 1 gram(s) 10 mL, IV Push (INT), qDay heparin 5,000 units/mL (1 mL) vial 5,000 unit(s) 1 mL, Subcutaneous, q8h pantoprazole 40 mg EC tablet 40 mg 1 tab(s), Oral, qDayAC Continuous: (0) PRN: (4) acetaminophen 325 mg Tablet 650 mg 2 tab(s), Oral, q4h acetaminophen-HYDROcodone 325-5 mg tablet 1 tab(s), Oral, q4h HYDROmorphone 0.5 mg/0.5 mL PF syringe 0.5 mg 0.5 mL, IV Push, q3h ondansetron 2 mg/ 1 mL 2 mL INJ 4 mg 2 mL, IV Push, q4h Lab Results 05/14 06:17 WBC: 2.8 L Hgb: 12.4 Hct: 36.1 Platelet: 81 L Neutrophil %: 61.6 Glucose Level: 83 Sodium Level: 141 Potassium Level: 3.6 BUN: 8.0 Creatinine Lvl (s): 0.53 05/13 01:51 WBC: 3.3 L Hgb: 12.3 Hct: 35.2 Platelet: 80 L Neutrophil %: 64.8 Protime: 15.0 H PT International Ratio: 1.2 Glucose Level: 101 Sodium Level: 140 Potassium Level: 3.5 BUN: 9.0 Creatinine Lvl (s): 0.57 EKG No qualifying data available. Assessment/Plan 1. Cirrhosis Admitted with 5 days history of worsening sudden diffuse abdominal pain distention. Work-up revealed evidence of liver cirrhosis with moderate ascites, enlarged spleen varices. No history of liver disease in the past. Denies alcohol abuse. Chronic Excedrin use. Elevation of liver enzymes. Low platelets. Normal INR. Follow-up abdominal ultrasound with Doppler evaluation of the portal system. Obtain chronic liver disease work-up. Initiate PPI. Liver MRI for elevated alpha-fetoprotein. Advance diet as tolerated. Orders: pantoprazole, Start: 05/13/22 16:07:00 EST, Dose = 40 mg, = 1 tab(s), Oral, qDayAC, 0, 05/13/22 16:07:00 EST Diet as tolerated MRI Liver Digitally Signed by MD GERSON OSWALD MD on 05/14/2022 10:23 AM [facility] [id number] Note. MICRO - Microbiology PROCEDURE: Urine Culture [*1] SOURCE: Urine, Clean Catch BODY SITE: COLLECTED DATE/TIME: 05/12/2022 13:01 EST RECEIVED DATE/TIME: 05/12/2022 20:31 EST START DATE/TIME: 05/12/2022 20:31 EST FREE TEXT SOURCE: FINAL REPORTS Final Report [] Verified Date/Time/Personnel: 05/14/2022 08:12 EST >100,000 cfu/ml Escherichia coli PRELIMINARY REPORTS Preliminary Report [] Verified Date/Time/Personnel: 05/13/2022 12:59 EST >100,000 cfu/ml Escherichia coli CHECO to follow SUSCEPTIBILITY RESULTS Escherichia coli Antibiotic CHECO Dilut CHECO Inter Ampicillin <=8 Susceptible Ampicillin/ <=4/2 Susceptible Sulbactam Aztreonam <=4 Susceptible Cefazolin <=2 Susceptible Ciprofloxacin <=0.25 Susceptible Ertapenem <=0.5 Susceptible Gentamicin <=2 Susceptible Imipenem <=1 Susceptible Levofloxacin <=0.5 Susceptible Meropenem <=1 Susceptible Minocycline <=4 Susceptible Nitrofurantoin <=32 Susceptible Trimethoprim/ <=0.5/9.5 Susceptible Sulfa Performing Locations *1: This test was performed at: [facility], [address] [place] [address], [id number] , [facility] ([place])05-14-2022 Note ORIGINAL EXAMINATION: Hepatic elastography and duplex abdominal Doppler TECHNIQUE: 2D Shear Wave Elastography of the liver was performed in the right lobe. Color Doppler and spectral analysis of the portal hepatic venous system is also performed. COMPARISON: CT 05/12/2022 HISTORY: Ascites, liver fibrosis, cirrhosis, splenomegaly FINDINGS: Median velocity: 1.71 m/s IQR/median ratio: 5.8% (Value less than or equal to 15% should be seen to ensure exam adequacy.) The main portal vein is 1 cm in diameter which is normal. It is patent with antegrade flow on color Doppler. There are normal portal venous waveforms in this vessel. The splenic vein posterior to the pancreas and the right and left portal venous branches are also patent with antegrade flow. All 3 hepatic veins are patent with normal flow direction. There is normal low resistance arterial waveforms in the proper hepatic artery. IMPRESSION: Elastography indicates a mild to moderate risk of clinically significant liver fibrosis. Normal portal venous Doppler. No thrombosis or flow reversal is seen. Shear Wave Liver Elastography-liver fibrosis staging Median Velocity: Recommendation: 1.35-1.66 m/s (5.48 kPa - 8.29 kPa) Normal to mild risk of clinically significant liver fibrosis : METAVIR Stage F1 1.66-1.77 m/s (8.29 kPa - 9.40 kPa) Evre-yh-azqdfcuj risk of clinically significant liver fibrosis. (METAVIR Stage F2) 1.77-1.99 m/s (9.40 kPa - 11.9 kPa) Moderate to severe risk of clinically significant liver fibrosis (METAVIR Stage F3) > 1.99 m/s (> 11.9 kPa) Advanced Fibrosis and/or Cirrhosis: (METAVIR Stage F4) Interpreted by: Gagan Hampton MD Preliminary Report By: Gagan Hampton MD Electronically signed By Gagan Hampton MD Dictated Date: 05/14/2022 11:20:49 AM Prelim Date: 05/14/2022 11:23:32 AM Sign Date: 05/14/2022 11:23:32 AM Ordering Provider: [facility]02-08-2023 Gastroenterology Consult note Date of Service 05/13/2022 Reason for Consultation Cirrhosis History of Present Illness We are asked to see Mrs. Maxwell a 32-year-old white female with no significant longstanding medical problems/history. She admits however that she has not seen a physician for 9 years since she gave to her last child. Only thing patient mentions he is taking Excedrin at least 3-4 times a weekfor chronic recurrent headaches. The patient comes into the hospital after complaining of cute onset of abdominal discomfort with distention pressure and fullness complaint. This started the end of last week and progressed over the weekend. She finally sought medical attention where imaging has shown evidence of cirrhosis and labs confirmed changes consistent with cirrhotic liver. We are now asked to see her for inpatient GI eval Patient denies any history of significant alcohol use or abuse. Admittedly she only drinks sociallyand rare and less than 10/year. She does state that she has a family history of alcohol liver disease with her father and her uncle that she is uncertain if they were ever evaluated for any other cause other than alcohol use. Had been no preceding symptoms of significance prior to this increased abd ominal distention and fullness last week Review of Systems No weight loss or change No flulike symptoms fevers chills sweats myalgias No respiratory complaint cough wheeze shortness of breath No chest pain complaint syncope lightheadedness No change in bowel pattern no cough diarrhea or constipation She does have history of GERD but has been mostly controlled and not really using medications but is avoiding triggers Denies dyspepsia or dysphagia No history of hepatitis or pancreatitis she does have tattoos but denies sharing any needles no history of IV drug use or cocaine use No bruising or bleeding disorders No renal disease No thyroid disease no diabetes No significant neurologic complaints No significant musculoskeletal complaints Physical Exam Vitals and Measurements T: 36.8 C (Oral) TMIN: 36.7 C (Oral) TMAX: 36.8 C (Oral) HR: 84 RR: 18 BP: 118/75 SpO2: 100% HT: 160 cm WT: 54.4 kg BMI: 20.78 Weight Current Weight Dosing Weight: 53.2 kg (05/12/22) Current Weight: 54.4 kg (05/13/22) Small stature thin frame nonobese white female She is in no acute distress skin clear no rash No jaundice Good pulses good cap refill no extremity edema Eyes are mild icteric mucosa pink moist neck supple Lungs are clear Heart regular rhythm no noted murmur Abdomen flat positive bowel sounds there is no palpable fullness masses no organomegaly no tenderness no rebound Rectal deferred Lab Results 05/13 01:51 WBC: 3.3 L Hgb: 12.3 Hct: 35.2 Platelet: 80 L Neutrophil %: 64.8 Protime: 15.0 H PT International Ratio: 1.2 Glucose Level: 101 Sodium Level: 140 Potassium Level: 3.5 BUN: 9.0 Creatinine Lvl (s): 0.57 Imaging Results and Diagnostics (05/12/2022 11:[address] Abd/Pelvis w/ IV Contrast Only) IMPRESSION: 1. Cirrhosis. No focal liver lesions seen. 2. Portal hypertension with splenomegaly, collateral circulation and moderate ascites. 3. No acute abnormality identified. (05/12/2022 14:32 EST US Abdomen Complete) IMPRESSION: Findings are similar to those on the CT examination. Nodular cirrhotic liver. Small amount of ascites. Moderate splenomegaly. [1] Assessment/Plan 1. Cirrhosis Questionable etiology No alcohol history of significance Family history includes alcohol liver disease Plan Acute and chronic liver work-up Agree with elastography Follow labs and clinically May eventually need liver biopsies to fully define but will hold off for now Long discussion with patient and spouse regarding the aforementioned work-up and concerns and they understand and agree with plan Further to follow Orders: Gliadin Antibody IgA Liver Kidney Microsome IgG Autoabs TGT Ab (IGA) Problem List/Past Medical History Ongoing No qualifying data Historical No qualifying data Procedure/Surgical History No qualifying data available. Medications Inpatient Dilaudid, 0.5 mg= 0.5 mL, IV Push, q3h, PRN heparin 5000 units/mL injection, 5000 unit(s)= 1 mL, Subcutaneous, q8h Bearden 325- 5 mg oral tablet, 1 tab(s), Oral, q4h, PRN Rocephin, 1 gram(s)= 10 mL, IV Push (INT), qDay Tylenol, 650 mg= 2 tab(s), Oral, q4h, PRN Zofran, 4 mg= 2 mL, IV Push, q4h, PRN Home No active home medications Allergies NKA Social History Tobacco Nicotine Use: Never (less than 100 in lifetime)., 05/12/2022 Immunizations No qualifying data available. [1] US Abdomen Complete; GAGAN HAMPTON MD 05/12/2022 14:32 EST Digitally Signed by EULA PIERCE on 05/13/2022 02:30 PM [id number] Note Date of Service 05/13/2022 Chief Complaint Abdominal pain/distention Subjective 32 yo female who does not follow regularly with PCP presents from [facility] with complaints of abdominal distension. Both her and her ate beans a few days ago and felt nauseous, but improved. Continue symptoms brought patient to [place] where CT A/P and US revealed evidence of cirrhosis. Confirmatory transaminitis on labs: AST/ALT: 726/593, Tbili: 1.6, Lipase: 89; UA+ nitrites. Started on Rocephin. Also noted to have thrombocytopenia and splenomegaly. Patient does have a cyst on her left kidney and will need to follow-up as an outpatient. GI has been consulted. Patient seen and examined sitting up at the side of the bed. She is alert and oriented x3. Complaining of some abdominal distention and pain in the right lower quadrant and underneath her bellybutton. States that the pain medication did take the edge off her pain. Tolerating clear liquid diet. Alsoc/o of a headache. She denied dizziness, nausea, vomiting, chest pain, shortness of breath, diarrhea and problems with urination. Objective Vitals and Measurements T: 36.8 C (Oral) TMIN: 36.7 C (Oral) TMAX: 36.8 C (Oral) HR: 84 RR: 18 BP: 112/59 SpO2: 100% HT: 160 cm WT: 54.4 kg BMI: 20.78 Intake and Output 7AM Yesterday to 7AM Today Intake and Output (Last 24 hours) Intake Output Total Summary Total Intake 0.00 Total Output 0.00 Fluid Balance 0.00 Physical Exam Physical Exam General: No acute distress. Alert and Appropriate Skin: No rash. Warm, Dry, Intact HEENT: Head is normocephalic and atraumatic. No lesions. Pupils equal in size. Extraocular movements within normal limits. Nose: No septal deviation. Mouth: Oropharynx mucosa is without lesion. Neck: Supple. No lymphadenopathy, thyromegaly noted. Lungs: Bilaterally clear/diminished breath sounds with no crepitation or wheeze. Unlabored Cardiovascular: Heart is regular rhythm, S1S2, No extra-audible heart tones Abdomen: Abdomen is soft, tender RQ. Bowel sounds positive all four quadrants. Extremities: No clubbing, cyanosis or edema. Peripheral pulses palpable. No calf tenderness. Adequate peripheral circulation. Neurological: The patient is awake, oriented to time, people and place. Following simple commands, moving all extremities. Weight Current Weight Dosing Weight: 53.2 kg (05/12/22) Current Weight: 54.4 kg (05/13/22) Medications Medications (6) Active Scheduled: (2) cefTRIAXone IVP syringe 1 gram(s) 10 mL, IV Push (INT), qDay heparin 5,000 units/mL (1 mL) vial 5,000 unit(s) 1 mL, Subcutaneous, q8h Continuous: (0) PRN: (4) acetaminophen 325 mg Tablet 650 mg 2 tab(s), Oral, q4h acetaminophen-HYDROcodone 325-5 mg tablet 1 tab(s), Oral, q4h HYDROmorphone 0.5 mg/0.5 mL PF syringe 0.5 mg 0.5 mL, IV Push, q3h ondansetron 2 mg/ 1 mL 2 mL INJ 4 mg 2 mL, IV Push, q4h Lab Results 05/13 01:51 WBC: 3.3 L Hgb: 12.3 Hct: 35.2 Platelet: 80 L Neutrophil %: 64.8 Protime: 15.0 H PT International Ratio: 1.2 Glucose Level: 101 Sodium Level: 140 Potassium Level: 3.5 BUN: 9.0 Creatinine Lvl (s): 0.57 EKG No qualifying data available. Assessment/Plan Transaminitis/Cirrhosis of liver with ascites- GI has been consulted. Follow CMP. hepatitis panel negative. ammonia level 42. lipase level 89. Continue clear liquid diet until seen by GI. UTI- Continue on Rocephin. Culture pending. Abdominal pain- Continue with pain control Splenomegaly- likely secondary to cirrhosis Thrombocytopenia- platelets 80, follow labs Cyst of left kidney- patient will need close outpatient follow up DVT prophylaxis heparin subq Full Code Updated at the bedside D/w Dr. Orantes Time Spent 23 minutes Digitally Signed by OSORIO AYERS APRN-TIEN on 05/13/2022 11:51 AM [facility] [id number] Gastroenterology Consult note Date of Service 05/13/2022 Reason for Consultation Cirrhosis History of Present Illness We are asked to see Mrs. Maxwell a 32-year-old white female with no significant longstanding medical problems/history. She admits however that she has not seen a physician for 9 years since she gave to her last child. Only thing patient mentions he is taking Excedrin at least 3-4 times a weekfor chronic recurrent headaches. The patient comes into the hospital after complaining of cute onset of abdominal discomfort with distention pressure and fullness complaint. This started the end of last week and progressed over the weekend. She finally sought medical attention where imaging has shown evidence of cirrhosis and labs confirmed changes consistent with cirrhotic liver. We are now asked to see her for inpatient GI eval Patient denies any history of significant alcohol use or abuse. Admittedly she only drinks sociallyand rare and less than 10/year. She does state that she has a family history of alcohol liver disease with her father and her uncle that she is uncertain if they were ever evaluated for any other cause other than alcohol use. Had been no preceding symptoms of significance prior to this increased abd ominal distention and fullness last week Review of Systems No weight loss or change No flulike symptoms fevers chills sweats myalgias No respiratory complaint cough wheeze shortness of breath No chest pain complaint syncope lightheadedness No change in bowel pattern no cough diarrhea or constipation She does have history of GERD but has been mostly controlled and not really using medications but is avoiding triggers Denies dyspepsia or dysphagia No history of hepatitis or pancreatitis she does have tattoos but denies sharing any needles no history of IV drug use or cocaine use No bruising or bleeding disorders No renal disease No thyroid disease no diabetes No significant neurologic complaints No significant musculoskeletal complaints Physical Exam Vitals and Measurements T: 36.8 C (Oral) TMIN: 36.7 C (Oral) TMAX: 36.8 C (Oral) HR: 84 RR: 18 BP: 118/75 SpO2: 100% HT: 160 cm WT: 54.4 kg BMI: 20.78 Weight Current Weight Dosing Weight: 53.2 kg (05/12/22) Current Weight: 54.4 kg (05/13/22) Small stature thin frame nonobese white female She is in no acute distress skin clear no rash No jaundice Good pulses good cap refill no extremity edema Eyes are mild icteric mucosa pink moist neck supple Lungs are clear Heart regular rhythm no noted murmur Abdomen flat positive bowel sounds there is no palpable fullness masses no organomegaly no tenderness no rebound Rectal deferred Lab Results 05/13 01:51 WBC: 3.3 L Hgb: 12.3 Hct: 35.2 Platelet: 80 L Neutrophil %: 64.8 Protime: 15.0 H PT International Ratio: 1.2 Glucose Level: 101 Sodium Level: 140 Potassium Level: 3.5 BUN: 9.0 Creatinine Lvl (s): 0.57 Imaging Results and Diagnostics (05/12/2022 11:[address] Abd/Pelvis w/ IV Contrast Only) IMPRESSION: 1. Cirrhosis. No focal liver lesions seen. 2. Portal hypertension with splenomegaly, collateral circulation and moderate ascites. 3. No acute abnormality identified. (05/12/2022 14:32 EST US Abdomen Complete) IMPRESSION: Findings are similar to those on the CT examination. Nodular cirrhotic liver. Small amount of ascites. Moderate splenomegaly. [1] Assessment/Plan 1. Cirrhosis Questionable etiology No alcohol history of significance Family history includes alcohol liver disease Plan Acute and chronic liver work-up Agree with elastography Follow labs and clinically May eventually need liver biopsies to fully define but will hold off for now Long discussion with patient and spouse regarding the aforementioned work-up and concerns and they understand and agree with plan Further to follow Orders: Gliadin Antibody IgA Liver Kidney Microsome IgG Autoabs TGT Ab (IGA) Problem List/Past Medical History Ongoing No qualifying data Historical No qualifying data Procedure/Surgical History No qualifying data available. Medications Inpatient Dilaudid, 0.5 mg= 0.5 mL, IV Push, q3h, PRN heparin 5000 units/mL injection, 5000 unit(s)= 1 mL, Subcutaneous, q8h Bearden 325- 5 mg oral tablet, 1 tab(s), Oral, q4h, PRN Rocephin, 1 gram(s)= 10 mL, IV Push (INT), qDay Tylenol, 650 mg= 2 tab(s), Oral, q4h, PRN Zofran, 4 mg= 2 mL, IV Push, q4h, PRN Home No active home medications Allergies NKA Social History Tobacco Nicotine Use: Never (less than 100 in lifetime)., 05/12/2022 Immunizations No qualifying data available. [1] US Abdomen Complete; GAGAN HAMPTON MD 05/12/2022 14:32 EST Digitally Signed by EULA PIERCE on 05/13/2022 02:30 PM [facility] [id number] Evaluation + Plan noteExtracted from: Title:History and Physical Author:MICHAEL CLEVELAND Date:05/13/22 1. Transaminitis 2. Cirrhosis of liver with ascites 3. UTI (urinary tract infection) 4. Abdominal pain 5. Splenomegaly 6. Thrombocytopenia 7. Cyst of left kidney GI consult ordered given new diagnosis of cirrhosis. Monitor daily CMP for transaminitis. Patient may benefit from the initiation of furosemide and spironolactone. OP surveillance of renal cyst. Thrombocytopenia and splenomegaly from portal hypertension/cirrhosis. Treat UTI with 3 days of Rocephin. Diagnostic Tests Pending * .ds DNA Ab Titer 05/13/22 * Comprehensive Autoimmune Panel 05/13/22 * Liver Kidney Microsome IgG Autoabs 05/13/22 [facility] 02-08-2023 Note Date of Service 05/13/2022 Chief Complaint Abdominal pain/distention Subjective 32 yo female who does not follow regularly with PCP presents from [facility] with complaints of abdominal distension. Both her and her ate beans a few days ago and felt nauseous, but improved. Continue symptoms brought patient to [place] where CT A/P and US revealed evidence of cirrhosis. Confirmatory transaminitis on labs: AST/ALT: 726/593, Tbili: 1.6, Lipase: 89; UA+ nitrites. Started on Rocephin. Also noted to have thrombocytopenia and splenomegaly. Patient does have a cyst on her left kidney and will need to follow-up as an outpatient. GI has been consulted. Patient seen and examined sitting up at the side of the bed. She is alert and oriented x3. Complaining of some abdominal distention and pain in the right lower quadrant and underneath her bellybutton. States that the pain medication did take the edge off her pain. Tolerating clear liquid diet. Alsoc/o of a headache. She denied dizziness, nausea, vomiting, chest pain, shortness of breath, diarrhea and problems with urination. Objective Vitals and Measurements T: 36.8 C (Oral) TMIN: 36.7 C (Oral) TMAX: 36.8 C (Oral) HR: 84 RR: 18 BP: 112/59 SpO2: 100% HT: 160 cm WT: 54.4 kg BMI: 20.78 Intake and Output 7AM Yesterday to 7AM Today Intake and Output (Last 24 hours) Intake Output Total Summary Total Intake 0.00 Total Output 0.00 Fluid Balance 0.00 Physical Exam Physical Exam General: No acute distress. Alert and Appropriate Skin: No rash. Warm, Dry, Intact HEENT: Head is normocephalic and atraumatic. No lesions. Pupils equal in size. Extraocular movements within normal limits. Nose: No septal deviation. Mouth: Oropharynx mucosa is without lesion. Neck: Supple. No lymphadenopathy, thyromegaly noted. Lungs: Bilaterally clear/diminished breath sounds with no crepitation or wheeze. Unlabored Cardiovascular: Heart is regular rhythm, S1S2, No extra-audible heart tones Abdomen: Abdomen is soft, tender RQ. Bowel sounds positive all four quadrants. Extremities: No clubbing, cyanosis or edema. Peripheral pulses palpable. No calf tenderness. Adequate peripheral circulation. Neurological: The patient is awake, oriented to time, people and place. Following simple commands, moving all extremities. Weight Current Weight Dosing Weight: 53.2 kg (05/12/22) Current Weight: 54.4 kg (05/13/22) Medications Medications (6) Active Scheduled: (2) cefTRIAXone IVP syringe 1 gram(s) 10 mL, IV Push (INT), qDay heparin 5,000 units/mL (1 mL) vial 5,000 unit(s) 1 mL, Subcutaneous, q8h Continuous: (0) PRN: (4) acetaminophen 325 mg Tablet 650 mg 2 tab(s), Oral, q4h acetaminophen-HYDROcodone 325-5 mg tablet 1 tab(s), Oral, q4h HYDROmorphone 0.5 mg/0.5 mL PF syringe 0.5 mg 0.5 mL, IV Push, q3h ondansetron 2 mg/ 1 mL 2 mL INJ 4 mg 2 mL, IV Push, q4h Lab Results 05/13 01:51 WBC: 3.3 L Hgb: 12.3 Hct: 35.2 Platelet: 80 L Neutrophil %: 64.8 Protime: 15.0 H PT International Ratio: 1.2 Glucose Level: 101 Sodium Level: 140 Potassium Level: 3.5 BUN: 9.0 Creatinine Lvl (s): 0.57 EKG No qualifying data available. Assessment/Plan Transaminitis/Cirrhosis of liver with ascites- GI has been consulted. Follow CMP. hepatitis panel negative. ammonia level 42. lipase level 89. Continue clear liquid diet until seen by GI. UTI- Continue on Rocephin. Culture pending. Abdominal pain- Continue with pain control Splenomegaly- likely secondary to cirrhosis Thrombocytopenia- platelets 80, follow labs Cyst of left kidney- patient will need close outpatient follow up DVT prophylaxis heparin subq Full Code Updated at the bedside D/w Dr. Orantes Time Spent 23 minutes Digitally Signed by OSORIO AYERS on 05/13/2022 11:51 AM [facility] [id number] History and physical note Date of Service 05/13/2022 Chief Complaint Abd distension History of Present Illness 32 yo F w/a PMH who does not follow regularly with PCP presents from [facility] with complaints of abddistension. Both her and her ate beans a few days ago and felt nauseous, but complaints of distension subsided while his improved. She denies CP, SOB, V/D, dizziness, fevers. Symptoms brought her to [facility] where CT and US revealed evidence of cirrhosis. Confirmatory transaminitis on labs: AST/ALT: 726/593; ammonia and INR pending; Tbili: 1.6 CBC and BMP without significant derangement. Lipase: 89; Albumin: 3.4 ; UA+ nitrites Patient and daughter at bedside. No acute complaints. VSS. She denies ETOH use; States her father has cirrhosis from ETOH; states her grandfather had lupus Review of Systems Complete detailed review of systems obtained and all pertinent positives and negatives are noted inthe history of present illness. Physical Exam Vitals and Measurements T: 36.7 C (Oral) HR: 93 RR: 18 BP: 114/73 SpO2: 99% HT: 160 cm WT: 53.2 kg BMI: 20.78 Weight Dosing Weight: 53.2 kg (05/12/22) Physical Examination General: No apparent distress. Alert and appropriate. HEENT: NCAT EOMI Neck: Supple. No appreciable elevation in JVP. Cardiovascular: S1 S2 normal. No extra-audible heart tones. Respiratory: Bilaterally clear breath sounds with no crepitation or wheeze. Abdominal: Distended + wave Neurological: Grossly intact without focal deficit. Cerebellar function preserved. Skin: Intact. Dry. No rash. Lab Results No 36 Hour Lab Data Imaging Results and Diagnostics Findings are similar to those on the CT examination. Nodular cirrhotic liver. Small amount of ascites. Moderate splenomegaly. Personally reviewed - cirrhosis CTAP - personally reviewed cirrhosis EKG NSR - reviewed Assessment/Plan 1. Transaminitis 2. Cirrhosis of liver with ascites 3. UTI (urinary tract infection) 4. Abdominal pain 5. Splenomegaly 6. Thrombocytopenia 7. Cyst of left kidney GI consult ordered given new diagnosis of cirrhosis. Monitor daily CMP for transaminitis. Patient may benefit from the initiation of furosemide and spironolactone. OP surveillance of renal cyst. Thrombocytopenia and splenomegaly from portal hypertension/cirrhosis. Treat UTI with 3 days of Rocephin. Problem List/Past Medical History Ongoing No qualifying data Historical No qualifying data Procedure/Surgical History No qualifying data available. Medications No qualifying data available Allergies NKA Social History Tobacco Nicotine Use: Never (less than 100 in lifetime)., 05/12/2022 Immunizations No qualifying data available. Code Status Code Status - Ordered -- 05/13/22 0:30:00 EST, Full Code, Constant Order Digitally Signed by MICHAEL CLEVELAND DO on 05/13/2022 01:30 AM [facility] [id number] Note ORIGINAL EXAMINATION: COMPLETE ABDOMINAL ULTRASOUND05/12/2022 2:39 pm COMPARISON: CT same day HISTORY: ORDERING SYSTEM PROVIDED HISTORY: Reason for Exam: abdominal pain and cirrhosis FINDINGS: The liver is diffusely coarsened with nodular margins. No focal mass is seen. No bile duct dilatation. The common duct is 5.3 mm at the natasha hepatis. The main portal vein is patent with antegrade flow. Gallbladder is less than optimally distended with diffuse wall thickening. No gallstone. Negative sonographic Anderson's sign. The pancreas is obscured by bowel gas. There is moderate splenomegaly with vertical dimension of at least 17 cm without any focal lesions. Small amount of upper abdominal ascites. Limited survey images of the kidneys show normal cortical thickness and echogenicity with no pelvocaliectasis. There is a tiny 7 mm cyst in the left kidney. The visualized aorta and IVC are not dilated IMPRESSION: Findings are similar to those on the CT examination. Nodular cirrhotic liver. Small amount of ascites. Moderate splenomegaly. Interpreted by: Gagan Hampton MD Preliminary Report By: Gagan Hampton MD Electronically signed By Gagan Hampton MD Dictated Date: 05/12/2022 2:58:49 PM Prelim Date: 05/12/2022 3:02:47 PM Sign Date: 05/12/2022 3:02:47 PM Ordering Provider: [facility]02-07-2023 Note ORIGINAL EXAMINATION: COMPLETE ABDOMINAL ULTRASOUND05/12/2022 2:39 pm COMPARISON: CT same day HISTORY: ORDERING SYSTEM PROVIDED HISTORY: Reason for Exam: abdominal pain and cirrhosis FINDINGS: The liver is diffusely coarsened with nodular margins. No focal mass is seen. No bile duct dilatation. The common duct is 5.3 mm at the natasha hepatis. The main portal vein is patent with antegrade flow. Gallbladder is less than optimally distended with diffuse wall thickening. No gallstone. Negative sonographic Anderson's sign. The pancreas is obscured by bowel gas. There is moderate splenomegaly with vertical dimension of at least 17 cm without any focal lesions. Small amount of upper abdominal ascites. Limited survey images of the kidneys show normal cortical thickness and echogenicity with no pelvocaliectasis. There is a tiny 7 mm cyst in the left kidney. The visualized aorta and IVC are not dilated IMPRESSION: Findings are similar to those on the CT examination. Nodular cirrhotic liver. Small amount of ascites. Moderate splenomegaly. Interpreted by: Gagan Hampton MD Preliminary Report By: Gagan Hampton MD Electronically signed By Gagan Hampton MD Dictated Date: 05/12/2022 2:58:49 PM Prelim Date: 05/12/2022 3:02:47 PM Sign Date: 05/12/2022 3:02:47 PM Ordering Provider: [facility]02-07-2023 Evaluation + Plan note Diagnostic Tests Pending * Urine Culture 05/12/22 [facility] 02-07-2023 Note ORIGINAL EXAMINATION: CT OF THE ABDOMEN AND PELVIS WITH CONTRAST 05/12/2022 11:38 am TECHNIQUE: CT of the abdomen and pelvis was performed with the administration of intravenous contrast. Multiplanar reformatted images are provided for review. Automated exposure control, iterative reconstruction, and/or weight based adjustment of the mA/kV was utilized to reduce the radiation dose to as low as reasonably achievable. COMPARISON: None. HISTORY: ORDERING SYSTEM PROVIDED HISTORY: Reason for Exam: pain FINDINGS: No osseous abnormality identified. The lung bases are unremarkable. The liver shows prominent surface nodularity compatible with cirrhosis. Prominent splenomegaly is visible. There is moderate ascites noted in the abdomen and pelvis. No focal fluid collection to suggest abscess. The splenic and portal veins are patent. I do suspect small gastroesophageal junction varices, and there is also a recanalized periumbilical vein. No focal liver lesion is visible. Small right renal cyst is present. The kidneys are otherwise unremarkable. The adrenal glands and pancreas appear normal. Mildly prominent natasha hepatis lymph nodes are present, presumably reactive or hyperplastic related to liver disease. No adenopathy is evident elsewhere. Solid pelvic organs and urinary bladder are grossly normal. No definite GI tract abnormality is visible. No additional contributory abnormality. IMPRESSION: 1. Cirrhosis. No focal liver lesions seen. 2. Portal hypertension with splenomegaly, collateral circulation and moderate ascites. 3. No acute abnormality identified. Interpreted by: Kristopher Vazquez MD Preliminary Report By: Kristopher Vazquez MD Electronically signed By Kristopher Vazquez MD Dictated Date: 05/12/2022 12:11:49 PM Prelim Date: 05/12/2022 12:15:04 PM Sign Date: 05/12/2022 12:15:04 PM Ordering Provider: NELLY DE LA CRUZ [facility]02-07-2023 Hospital Discharge instructions Follow Up Care 05/12/2022 10:00:35 With:Call Physician Referral Address:Unknown When:2-4 days With:Follow up with primary care provider Address:Unknown When:2-4 days [facility] 02-07-2023 Note ORIGINAL EXAMINATION: CT OF THE ABDOMEN AND PELVIS WITH CONTRAST 05/12/2022 11:38 am TECHNIQUE: CT of the abdomen and pelvis was performed with the administration of intravenous contrast. Multiplanar reformatted images are provided for review. Automated exposure control, iterative reconstruction, and/or weight based adjustment of the mA/kV was utilized to reduce the radiation dose to as low as reasonably achievable. COMPARISON: None. HISTORY: ORDERING SYSTEM PROVIDED HISTORY: Reason for Exam: pain FINDINGS: No osseous abnormality identified. The lung bases are unremarkable. The liver shows prominent surface nodularity compatible with cirrhosis. Prominent splenomegaly is visible. There is moderate ascites noted in the abdomen and pelvis. No focal fluid collection to suggest abscess. The splenic and portal veins are patent. I do suspect small gastroesophageal junction varices, and there is also a recanalized periumbilical vein. No focal liver lesion is visible. Small right renal cyst is present. The kidneys are otherwise unremarkable. The adrenal glands and pancreas appear normal. Mildly prominent natasha hepatis lymph nodes are present, presumably reactive or hyperplastic related to liver disease. No adenopathy is evident elsewhere. Solid pelvic organs and urinary bladder are grossly normal. No definite GI tract abnormality is visible. No additional contributory abnormality. IMPRESSION: 1. Cirrhosis. No focal liver lesions seen. 2. Portal hypertension with splenomegaly, collateral circulation and moderate ascites. 3. No acute abnormality identified. Interpreted by: Kristopher Vazquez MD Preliminary Report By: Kristopher Vazquez MD Electronically signed By Kristopher Vazquez MD Dictated Date: 05/12/2022 12:11:49 PM Prelim Date: 05/12/2022 12:15:04 PM Sign Date: 05/12/2022 12:15:04 PM [facility] Appointment Date:05/27/2022 11:00:00 AM Scheduled Provider: Location:CT Appointment Type:CT Biopsy Liver Future Scheduled Tests Radiology* CT Biopsy Liver 05/27/22 [facility] Hospital course Narrative No data available for this section [facility] Hospital Discharge instructions No data available for this section [facility] Progress note No data available for this section [facility] Summary Purpose Family History No Family History Records Found Advance Directives No Advanced Directives Records Found Additional Source Comments Care Team (unrecognized sect ion and content) Care Team Personnel Name: PHYSICIAN, NONE Position: Physician Member Role: Primary Care Physician Name: TRICE Asher Position: AO RN Member Role: ED RN Name: Danelle Hernandez RN Position: AO RN Member Role: RN Name: NELLY DE LA CRUZ DO Position: Resident Member Role: Resident Address: Address: [address] [facility] ED Resident [address] Name: JULINA IGLESIAS MD Position: ED Physician Address: Address: [address] [facility] [address] Care Team Personnel Name: PHYSICIAN, NONE Position: Physician Member Role: Primary Care Physician Care Team Personnel Name: PHYSICIAN, NONE Position: Physician Member Role: Primary Care Physician Care Team Personnel Name: PHYSICIAN, NONE Position: Physician Member Role: Primary Care Physician INFORMATION SOURCE (unrecogn ized section and content) FOR RECORDS PERTAINING TO PATIENTS WHO ARE OR HAVE BEEN ENROLLED IN A CHEMICAL DEPENDENCY/SUBSTANCEABUSE PROGRAM, SOME INFORMATION MAY BE OMITTED. This clinical summary was aggregated from multiple sources. Caution should be exercised in using it in the provision of clinical care. This summary normalizes information from multiple sources, and as a consequence, information in this document may materially change the coding, format and clinical context of patient data. In addition, data may be omitted in some cases. CLINICAL DECISIONS SHOULD BE BASED ON THE PRIMARY CLINICAL RECORDS. [facility]. provides no warranty or guarantee of the accuracy or completeness of information in this document.
[2023-04-01 10:06] LABS: Hematocrit 43.1 % (37-47); Hemoglobin 15.1 g/dL (12.0-15.0); Mean Corpuscular Hgb 30.4 pg (27.0-32.0); Mean Corpuscular Volume 86.7 fL (81-99); Mean Platelet Vol. 10.5 fl (6.2-12.0); POSITIVE COUNT YES; Platelet Count 94 K/mm3 (150-450); RBC Distribution Width CV 14.5 % (11.6-14.6); RBC Distribution Width SD 44.9 fl (35.1-43.9); Red Blood Count 4.97 M/mm3 (4.2-5.4); White Blood Count 3.7 K/mm3 (4.4-11.0)
[2023-04-01 10:19] LABS: Erythrocyte Sedimentation Rate < 1 mm/hr (0-30)
[2023-04-01 10:40] LABS: CRP < 2.90 mg/L (0.0-3.0)
[2023-04-02 04:07] LABS: AFP, Tumor Marker 3.5 ng/mL (0.0-6.4)
== END | disposition home or self-care (01) ==
PROVIDERS: PCP Family Medicine; Referring Provider Internal Medicine Gastroenterology; Visit Provider Internal Medicine Gastroenterology
DX: K74.60 Unspecified cirrhosis of liver (principal)
CPT/HCPCS: 36415; 76705; 82105; 85027; 85652; 86140

== ENCOUNTER → 2023-05-17 | Outpatient (CLI) | payer OTHER, SELFPAY ==
--- OUTSIDE RECORDS SUMMARY | 2023-05-17 08:38 | XMS RPT_ITS | CCD ---
Author Name Unknown Address [address] [facility] [address] [place] [address] Organization [facility] Care Team Providers Care Independent Marketing Consultant Name Role Phone PHYSICIAN, NONE Primary Care Physician Unavailab DR MAYTE Mazariegos MD Admitting Vandana holden PHYSICIAN, NONE Primary Care Unavailable SOPHIA KWONG FAC, EDWARDO W Attending Unavail able MD GERSON OSWALD MD Consulting Unavailable DESTINY KWONG, DR SCHWARZ Consulting Unavailable PHYSICIAN, NONE Primary Care Unavailable DR MAYTE MATHIS MD Consulting KRISTYN Patten MD Attending Unavailable EDWARDO RIVERA DO Consulting Unavailable JESSICA PALACIOS MD Attending Unavailable PHYSICIAN, NONE Primary Care Unavailable MD GERSON OSWALD MD Attending Unavailable TRIPP DELGADILLO DO Primary Care Unavailable NAVIN KWONG MD SAME Carlos Alberto Attending Unavailable TRIPP DELGADILLO DO Primary Care Unavailable NAVIN KWONG MD SAME Carlos Alberto Attending Unavailable PHYSICIAN, NONE Primary [...] 0 Refill(s), 06/01/22 15:53:00 EST, Pharmacy: [id number], Acute post-operative pain, 160, cm, 05/27/22 10:14:00 [...] Pressure Non-Invasive 69 1 GERSON OSWALD MD [facility] 05-27-2022 14:14-0500 Heart rate 102 /min GERSON OSWALD MD [facility] 05-27-2022 14:14-0500 Respiratory rate 16 /min GERSON OSWALD MD [facility] 05-27-2022 14:14-0500 Systolic Blood Pressure Non-Invasive 103 1 GERSON OSWALD MD [facility] 05-27-2022 13:45-0500 Diastolic Blood Pressure Non-Invasive 71 1 GERSON OSWALD MD [facility] 05-27-2022 13:45-0500 Heart rate 112 /min GERSON OSWALD MD [facility] 05-27-2022 13:45-0500 Respiratory rate 16 /min GERSON OSWALD MD [facility] 05-27-2022 13:45-0500 Systolic Blood Pressure Non-Invasive 107 1 GERSON OSWALD MD [facility] 05-27-2022 13:30-0500 Diastolic Blood Pressure Non-Invasive 77 1 GERSON OSWALD MD [facility] 05-27-2022 13:30-0500 Heart rate 116 /min GERSON OSWALD MD [facility] 05-27-2022 13:30-0500 Respiratory rate 16 /min GERSON OSWALD MD [facility] 05-27-2022 13:30-0500 Systolic Blood Pressure Non-Invasive 112 1 GERSON OSWALD MD [facility] 05-27-2022 13:15-0500 Heart rate 115 /min GERSON OSWALD MD [facility] 05-27-2022 10:14-0500 Blood Pressure Cuff Size GERSON OSWALD MD [facility] 05-27-2022 10:14-0500 Blood Pressure Location GERSON OSWALD MD [facility] 05-27-2022 10:14-0500 Blood Pressure Method GERSON OSWALD MD [facility] 05-27-2022 10:14-0500 Body height 160 cm GERSON OSWALD MD [facility] 05-27-2022 10:14-0500 Body temperature 98.42 [degF] GERSON OSWALD MD [facility] 05-27-2022 10:14-0500 Body weight 52.3 kg GERSON OSWALD MD [facility] 05-27-2022 10:14-0500 Body weight 20.43 kg/m2 GERSON OSWALD MD [facility] 05-27-2022 10:14-0500 Heart rate 101 /min GERSON OSWALD MD [facility] 05-15-2022 14:59-0500 Body temperature 97.88 [degF] DR MAYTE MATHIS MD [facility] 05-15-2022 14:59-0500 Diastolic Blood Pressure Non-Invasive [address] MAYTE MATHIS MD [address] [place] [address] 05-15-2022 14:59-0500 Heart rate 94 /min DR MAYTE MATHIS MD [address] [place] [address] 05-15-2022 14:59-0500 Reason For Taking VItal Signs DR MAYTE MATHIS MD [address] [place] [address] 05-15-2022 14:59-0500 Respiratory rate 20 /min DR MAYTE MATHIS MD [address] [place] [address] 05-15-2022 14:59-0500 Systolic Blood Pressure Non-Invasive [address] MAYTE MATHIS MD [address] [place] [address] 05-15-2022 07:07-0500 Heart rate 90 /min DR MAYTE MATHIS MD [facility] 05-15-2022 06:34-0500 Body temperature 98.24 [degF] DR MAYTE MATHIS MD [address] [place] [address] 05-15-2022 06:34-0500 Diastolic Blood Pressure Non-Invasive [address] MAYTE MATHIS MD [address] [place] [address] 05-15-2022 06:34-0500 Heart rate 94 /min DR MAYTE MATHIS MD [address] [place] [address] 05-15-2022 06:34-0500 Respiratory rate 18 /min DR MAYTE MATHIS MD [facility] 05-15-2022 06:34-0500 Systolic Blood Pressure Non-Invasive [address] MAYTE MATHIS MD [address] [place] [address] 05-15-2022 05:05-0500 Body weight 54.[address] MAYTE MATHIS MD [address] [place] [address] 05-14-2022 23:57-0500 Body temperature 97.88 [degF] DR MAYTE MATHIS MD [address] [place] [address] 05-14-2022 23:57-0500 Diastolic Blood Pressure Non-Invasive [address] MAYTE MATHIS MD [address] [place] [address] 05-14-2022 23:57-0500 Heart rate 83 /min DR MAYTE MATHIS MD [address] [place] [address] 05-14-2022 23:57-0500 Respiratory rate 16 /min DR MAYTE MATHIS MD [address] [place] [address] 05-14-2022 23:57-0500 Systolic Blood Pressure Non-Invasive [address] MAYTE MATHIS MD [address] [place] [address] 05-14-2022 19:30-0500 Reason For Taking VItal Signs DR MAYTE MATHIS MD [address] [place] [address] 05-14-2022 14:10-0500 Reason For Taking VItal Signs DR MAYTE MATHIS MD [address] [place] [address] 05-14-2022 08:44-0500 Heart rate 82 /min DR MAYTE MATHIS MD [address] [place] [address] 05-13-2022 20:44-0500 Heart rate 94 /min DR MAYTE MATHIS MD [address] [place] [address] 05-13-2022 16:50-05[address] Cuff Size DR MAYTE MATHIS MD [address] [place] [address] 05-13-2022 16:50-[address] MAYTE MATHIS MD [facility] 05-13-2022 16:50-[address] MAYTE Munoz MD [facility] 05-13-2022 06:32-05[address] Blood Pressure Cuff Size DR MAYTE MATHIS MD [address] [place] [address] 05-13-2022 06:32-[address] MAYTE MATHIS MD [facility] 05-13-2022 06:32-[address] MAYTE Munoz MD [address] [place] [address] 05-12-2022 23:42-0500 Body height [address] MAYTE MATHIS MD [address] [place] [address] 05-12-2022 23:42-0500 Body weight 53.[address] MAYTE MATHIS MD [address] [place] [address] 05-12-2022 23:42-0500 Body weight 20.78 kg/m2 DR MAYTE MATHIS MD [address] [place] [address] 05-12-2022 19:40-0500 Diastolic Blood Pressure Non-Invasive 64 1 KRISTYN PETERSEN MD [facility] 05-12-2022 19:40-0500 Heart rate 85 /min KRISTYN PETERSEN MD [facility] 05-12-2022 19:40-0500 Reason For Taking VItal Signs KRISTYN PETERSEN MD [facility] 05-12-2022 19:40-0500 Respiratory rate 16 /min KRISTYN PETERSEN MD [facility] 05-12-2022 19:40-0500 Systolic Blood Pressure Non-Invasive 130 1 KRISTYN PETERSEN MD [facility] 05-12-2022 12:59-0500 Diastolic Blood Pressure Non-Invasive 84 1 KRISTYN PETERSEN MD [facility] 05-12-2022 12:59-0500 Heart rate 80 /min KRISTYN PETERSEN MD [facility] 05-12-2022 12:59-0500 Respiratory rate 18 /min KRISTYN PETERSEN MD [facility] 05-12-2022 12:59-0500 Systolic Blood Pressure Non-Invasive 134 1 KRISTYN PETERSEN MD [facility] 05-12-2022 10:10-0500 Body height 160 cm KRISTYN PETERSEN MD [facility] 05-12-2022 10:10-0500 Body temperature 98.42 [degF] KRISTYN PETERSEN MD [facility] 05-12-2022 10:10-0500 Body weight 52.8 kg KRISTYN PETERSEN MD [facility] 05-12-2022 10:10-0500 Diastolic Blood Pressure Non-Invasive 74 1 KRISTYN PETERSEN MD [facility] 05-12-2022 10:10-0500 Heart rate 93 /min KRISTYN PETERSEN MD [facility] 05-12-2022 10:10-0500 Respiratory rate 18 /min KRISTYN PETERSEN MD [facility] 05-12-2022 10:10-0500 Systolic Blood Pressure Non-Invasive 127 1 KRISTYN PETERSEN MD [facility] Encounters Encounter Date Encounter Type Care Provider Facility Start: 11-06-2022 ambulatory MD GERSON OSWALD MD Fac ility:B Start: 10-22-2022 ambulatory MD GERSON OSWALD MD Fac ility:B Start: 05-27-2022 End: 05-28-2022 ambulatory MD GERSON OSWALD MD Facility:A Start: 05-27-2022 End: 05-27-2022 Patient encounter procedure GERSON OSWALD MD [facility] Start: 05-21-2022 End: 05-22-2022 ambulatory JESSICA PALACIOS MD Facility:B Start: 05-21-2022 End: 05-21-2022 Patient encounter procedure JESSICA PALACIOS MD [facility] Start: 05-13-2022 End: 05-15-[address] MAYTE MATHIS MD Facility:A Start: 05-12-2022 End: 05-15-[address] MAYTE MATHIS MD [facility] Start: 05-12-2022 End: 05-13-2022 Emergency department patient visit NONE PHYSICIAN Facility:B Start: 05-12-2022 End: 05-12-2022 Emergency department patient visit KRISTYN PETERSEN MD [facility] Payers Date Payer Category Payer Unknown [id number] 1990 Unknown [id number] [id number] [id number] 1990 Unknown [id number] 2.16.8 [id number] 1990 Unknown [id number] 2.16.8 [id number] 1990 Unknown [id number] 2.16.8 [id number] 1990 Unknown [id number] 2.16.8 [id number] 1990 Unknown [id number] 2.16.8 [id number] Social History Date Type Detail Facility Start: 05-12-2022 Tobacco smoking status Never s moked tobacco (finding) [facility] Sex Assigned At Female [facility] Functional Status Date Assessment Result Facility 05-27-2022 Functional Status Safety level maintained [facility] 05-27-2022 Functional Status [facility] 05-27-2022 Functional Status [facility] 05-15-2022 Functional Status Non-Slip footw ear, Room check performed [facility] 05-15-2022 Functional Status [facility] 05-15-2022 Functional Status [facility] 05-15-2022 Functional Status Done [facility] 05-15-2022 Functional Status [facility] 05-14-2022 Functional Status [facility] 05-13-2022 Functional Status Driving, Work [facility] 05-13-2022 Functional Status Fluid Restriction Done Charted [facility] 05-12-2022 Functional Status [facility] 05-12-2022 Functional Status Room check performed [facility] 05-12-2022 Functional Status [facility] Mental Status Date Assessment Result Facility 05-27-2022 Mental Status Orientation Oriented x 4 [facility] 05-27-2022 Mental Status [facility] 05-15-2022 Mental Status Orientation Oriented x 4 [facility] 05-14-2022 Mental Status [facility] 05-14-2022 Mental Status [facility] 05-12-2022 Mental Status [facility] 05-12-2022 Mental Status Orientation Oriented x 4 [facility] 05-12-2022 Mental Status [facility] Clinical Notes 05-12-2022 to 06-03-2022 Note Date & Type Note Facility 03-01-2023 Note ORIGINAL PROCEDURE: DOS: 05/27/[address] guided random core biopsy, liver SPECIALTY PERSON: Dr. Martinez SERVICE MANAGER: None MATERIALS: 18G core biopsy device Gelfoam [...] at the liver capsule for added hemostasis. [place] were removed. Sterile dressing placed. Post procedure [...] Sign Date: 06/03/2022 9:15:44 PM Ordering Provider: [facility] ([place]) 05-27-2022 Procedure note Brief IR Post Procedure Note - Outpatient Pre Procedure Dx: Cirrhosis Post Procedure Dx: Same Procedure: 1. CT liver biopsy, random 411 Directory Assistance Operator: Michelle High Lift Mule Operator: None Anesthesia: Local, moderate sedation EBL: Minimal Complications:None Status: Stable Findings: 1. 5x18G core of segment 5 liver. Gelfoam pledget embolization of the tract and slurry of the capsule. No immediate post subcapsular or perihepatic hematoma. Plan: 1. VS check then d/c home after VSS for 2h Full report to follow. Orders in [employer]. Ekaterina Martinez MD Vascular & Interventional Radiology [facility] ([facility]) [email or web address] Pager: [phone] [facility] Dept (26/10): [phone] [facility]-VIR [phone] [facility]-VIR Digitally Signed by EKATERINA MARTINEZ MD on 05/27/2022 02:17 PM [facility] 05-27-2022 Note TRICE Mcpherson: SIGN, AUTHOR, PERFORM Event Display: CT Procedure Record Authored Date: CT Procedure Record Summary Primary Physician: EKATERINA MARTINEZ MD Finalized Date/Time: 05/27/22 12:50:03 Pt. Name: ALEXEI MAXWELLO.B./Sex: 1990 Female Med Rec #: [id number] Physician: Financial #: [id number] Pt. Type: O Room/Bed: / Admit/Disch: 05/27/22 09:56:00 - Institution: Allergies identified in patient's electronic medical record at time of printing on 05/27/22 Entry 1 Substance NKA Reaction Type Allergy Last Modified By: TRICE Asher 05/12/22 10:09:46 Case Attendance- CT Entry 1 Entry 2 Entry 3 Case Attendee EKATERINA MARTINEZ MD, RN Melanie L Vuletich, [facility] NLaxmi Role Performed Primary Surgeon Procedure Nurse Audiovisual Lead Technician Details Time In 05/27/22 11:43:00 05/27/22 11:43:00 [...] Radiology - Action Plan Outcomes Met? Yes Independent Marketing Consultant TRICE Mcpherson Completing Procedure Plan Last Modified By: TRICE Mcpherson 05/27/22 12:01:24 Radiology Lines and Procedures- CT Entry 1 Radiology Sedation Case Times Sedation Start Time 05/27/22 11:54:00 Sedation Stop Time 05/27/22 12:34:00 Sedation Total Time 40mins Radiology - Fluid/Drainage RAD - CT Guidewires, Cath... [place] Corvocet Biopsy System [id number] Radiology Urinary Catheter Radiology - CT Other Items Trays/Kits Custom Procedure Kit Radiology Contrast Contrast Used? N/A Radiology Procedure Site Site/Location abdomen Site Condition No complications Dressing Type Bandaids Technologist Notes gel foam used to seal tract Last Modified By: TRICE Mcpherson 05/27/22 12:34:43 Case Comments <None> Finalized By: TRICE Mcpherson Document Signatures Signed By: TRICE Mcpherson 05/27/22 12:50 [facility] 05-27-2022 Procedure note Brief IR Post Procedure Note - Outpatient Pre Procedure Dx: Cirrhosis Post Procedure Dx: Same Procedure: 1. CT liver biopsy, random 411 Directory Assistance Operator: Michelle High Lift Mule Operator: None Anesthesia: Local, moderate sedation EBL: Minimal Complications:None Status: Stable Findings: 1. 5x18G core of segment 5 liver. Gelfoam pledget embolization of the tract and slurry of the capsule. No immediate post subcapsular or perihepatic hematoma. Plan: 1. VS check then d/c home after VSS for 2h Full report to follow. [facility] Ekaterina Martinez MD Vascular & Interventional Radiology [facility] ([facility]) [email or web address] Pager: [phone] [facility] Dept (26/10): [phone] [facility] [phone] [employer]ME911 Digitally Signed by EKATERINA MARTINEZ MD on 05/27/2022 02:17 PM [facility] IR PREPROCEDURE H&P UPDATE IF A [...] 05/15/2022 and can be found in the [facility] Records ([employer] [place]). Dolores Hunter PA-C Interventional Radiology Pager: [phone] IR dept: x [phone] [facility] on [facility] Pending * Creatinine 05/27/22 [facility] 02-22-2023 Hospital Discharge instructions Patient Education 05/27/2022 11:19:58 Radiology- US Liver Biospy 07/19/2019(CUSTOM) EDON Liver Biopsy Discharge Instructions Ultrasound Department [facility] Imaging Services [address] [place] [address] Today, you had a biopsy of your [...] 1 to 2 days following the procedure. Fhiz-jro-efppgsm pain medication should be used for pain [...] instruction below: 8:00 am- 5:00 pm call [phone] After 5:00 pm call [phone] After 24 hours, contact the physician who [...] with primary care provider Address:Unknown When: Unknown [facility] 02-22-[address] Procedure Record Summary Primary Physician: EKATERINA MARTINEZ MD Finalized Date/Time: 05/27/22 12:50:03 Pt. Name: ALEXEI MAXWELL/Sex: 1990 Female Med Rec #: [id number] Physician: Financial #: [id number] Pt. Type: O Room/Bed: / Admit/Disch: 05/27/22 09:56:00 - Institution: Allergies identified in patient's electronic medical record at time of printing on 05/27/22 Entry 1 Substance NKA Reaction Type Allergy Last Modified By: TRICE Asher 05/12/22 10:09:46 Case Attendance- CT Entry 1 Entry 2 Entry 3 Case Attendee EKATERINA MARTINEZ MD, RN Melanie L Vuletich, [facility] Belinda Role Performed Primary Surgeon Procedure Nurse Audiovisual Lead Technician Details Time In 05/27/22 11:43:00 05/27/22 11:43:00 05/27/22 11:43:00 Time Out 05/27/22 12:34:00 05/27/22 12:45:00 05/27/22 12:45:00 Procedure/Preference CT Biopsy Liver (SN) CT Biopsy Liver (SN) CT Biopsy Liver (SN) Card Last Modified By: TRCIE Mcpherson RN Melanie L Lee, RN Melanie [...] TRICE Mcpherson, TRICE Mcpherson, TRICE Mcpherson 05/27/22 12:29:51 05/27/22 12:05:50 05/27/22 [...] Radiology - Action Plan Outcomes Met? Yes Independent Marketing Consultant TRICE Mcpherson Completing Procedure Plan Last Modified By: TRICE Mcpherson 05/27/22 12:01:24 Radiology Lines and Procedures- CT Entry 1 Radiology Sedation Case Times Sedation Start Time 05/27/22 11:54:00 Sedation Stop Time 05/27/22 12:34:00 Sedation Total Time 40mins Radiology - Fluid/Drainage RAD - CT Guidewires, Cath... [place] Corvocet Biopsy System [id number] Radiology Urinary Catheter Radiology - CT Other Items Trays/Kits Custom Procedure Kit Radiology Contrast Contrast Used? N/A Radiology Procedure Site Site/Location abdomen Site Condition No complications Dressing Type Bandaids Technologist Notes gel foam used to seal tract Last Modified By: TRICE Mcpherson 05/27/22 12:34:43 Case Comments Finalized By: TRICE Mcpherson Document Signatures Signed By: TRICE Mcpherson 05/27/22 12:50 [facility] [id number] History and physical note IR PREPROCEDURE H&P [...] 05/15/2022 and can be found in the [facility] ([employer]). Dolores Hunter PA-C Interventional Radiology Pager: [phone] IR dept: x [phone] Available on [employer] Digitally Signed by DOLORES HUNTER PA-C on 05/27/2022 12:29 PM Digitally Signed by EKATERINA MARTINEZ MD on 05/27/2022 02:04 PM [facility] [id number] Summary of episode note Discharge Instructions Thank you for allowing [facility] to assist you with your healthcare needs. [...] medication providers or retail pharmacies. Education Materials EDON Liver Biopsy Discharge Instructions Ultrasound Department [facility] Imaging Services [address] [address] Today, you had a biopsy of your [...] 1 to 2 days following the procedure. Dzpm-fwt-wozytxo pain medication should be used for pain [...] instruction below: 8:00 am- 5:00 pm call [phone] After 5:00 pm call [phone] After 24 hours, contact the physician who [...] to receive it can visit one of [facility] vaccine clinics. There are many vaccine clinic locations within the [facility]. For locations and available times, please visit [email or web address] It is important to note that some COVID mobile vaccine clinics are held outdoors and may be canceled in rainy or stormy conditions. To learn more about pediatric vaccinations (ages 5-11), we invite you to visit the [facility] webpage. [email or web address]://[email or web address].org/[email or web address]-[email or web address] [email or web address] learn more about the COVID-19 vaccine, we invite you to visit the CDC website for a list of frequently asked questions. https://www.cdc.gov/coronavirus/2019-ncov/vaccines/faq.html [facility] Patient Portal Access Instructions: Stay connected with your healthcare team and access your personal medical information anytime with the [facility] Patient Portal.If you would like a full copy of your medical records, please contact the [facility] Medical Records Department, Wednesday through Wednesday between 8a.m. and 4:30p.m. Please follow the directions below to access the portal: 1.Access the email account you provided upon registration to the hospital.2.Look for an invitation email from [facility].3.Open the email and access the invitation link: Accept Invitation to [facility]4.Fill in the required mujica to create your account. Sign into [email or web address] with your username and password that you [...] you will allow to register on the [facility] Patient Portal for access to your information. You can also access the [facility] Patient Portal on the [employer]. Simply click on Health Records under HealthData and then click on the Voice[employer] logo. HOW TO SAFELY DISPOSE OF PRESCRIPTION [...] Call your local pharmacy or go to http://[email or web address].Thoughtful Movers/[email or web address] to find one close to you.3.Make use of household items: Use cat litter or old coffee grounds to dispose medications if other options arenot available. Mix your drugs with these household products, seal them in an airtight container andthrow it into the garbage. Call [facility]: [phone] to be sure your drugs can be [...] aware that I should contact my doctor. Patient/Transcript Evaluator Signature: Date/Time: Relationship to Patient: Witness Name/Signature: Date/Time: [facility] [id number] Hospital Discharge instructions Patient Education 05/15/2022 15:58:42 [...] including vitamins, herbs, eye drops, creams, and gjoq-dcg-gjozmas medicines. Any medical conditions you have. Whether [...] Total protein Premature : 4.2 7.6 g/dL. [place]: 4.6 7.4 g/dL. : 6.0 6.7 g/dL. [...] 04/24/2005 Document Revised: 11/09/2018 Document Reviewed: 01/04/2018 Phase Eight Patient Education 2020 SEA. 05/15/2022 15:58:42 Liver Function Tests Liver Function [...] including vitamins, herbs, eye drops, creams, and fqxn-aeh-rpngvbl medicines. Any medical conditions you have. Whether [...] micromoles/L. Albumin Premature infant: 3.0 4.2 g/dL. [place]: 3.5 5.4 g/dL. : 4.4 5.4 g/dL. Child: 4.0 5.9 g/dL. Adult: 3.5 5.0 g/dL or 35 50 g/L (SI units). PT 11.0 12.5 seconds; 85% 100%. INR 0.8 1.1. Total protein Premature infant: 4.2 7.6 g/dL. [place]: 4.6 7.4 g/dL. : 6.0 6.7 g/dL. [...] 04/24/2005 Document Revised: 11/09/2018 Document Reviewed: 01/04/2018 Phase Eight Patient Education 2020 SEA. 05/15/2022 15:58:02 Liver Function Tests Liver Function [...] including vitamins, herbs, eye drops, creams, and cooq-hcl-criskfa medicines. Any medical conditions you have. Whether [...] be higher for older adults. Total bilirubin Mov[place]: 1.0 12.0 mg/dL or 17.1 205 micromoles/L (SI units). Child or adult: 0.3 1.0 mg/dL or 5.1 17 micromoles/L. Albumin Premature : 3.0 4.2 g/dL. : 3.5 5.4 g/dL. : 4.4 5.4 g/dL. Child: 4.0 5.9 g/dL. Adult: 3.5 5.0 g/dL or 35 50 g/L (SI units). PT 11.0 12.5 seconds; 85% 100%. INR 0.8 1.1. Total protein Premature infant: 4.2 7.6 g/dL. Moville: 4.6 7.4 g/dL. Infant: 6.0 6.7 g/dL. [...] Document Reviewed: 01/04/2018 Elsevier Patient Education 2020 SEA. Follow Up Care 05/12/2022 23:11:44 With:MD GERSON OSWALD MD Address: [address] [place] [address] [facility] [address] [phone] When:1-2 days Comments:Please call the office and schedule appointment. With:TRIPP DELGADILLO DO Address: [address] [place], [place] [address]- When:1-2 days Comments[facility] 02-10-2023 Note Discharge Instructions Thank you for allowing [facility] to assist you with your healthcare needs. The following is importantdischarge information regarding your hospital visit. Your Care Team PHYSICIAN, NONE Your Diagnosis Cirrhosis What to do next Follow Up Appointments Follow Up with MD GERSON OSWALD MD When Within 1-2 days Why: Please call the office and schedule appointment. Where: [facility] [address] [phone] Follow Up with TRIPP DELGADILLO DO When Within 1-2 days Why: Office will call you at home Small left renal cyst that will need follow-up outpatient. Where: [address], [place] [id number]- The Following Activity and Diet Have Been [...] #[id number] Pharmacy Information [id number]: [address] [place], [place] [phone] Please take this list to your next [...] including vitamins, herbs, eye drops, creams, and khmf-tqv-qdsxpdh medicines. Any medical conditions you have. Whether [...] may be higher for older adults. AST Mov[place] 0 5 days old: 35 140 units/L. [...] be higher for older adults. Total bilirubin [place]: 1.0 12.0 mg/dL or 17.1 205 micromoles/L (SI units). Child or adult: 0.3 1.0 mg/dL or 5.1 17 micromoles/L. Albumin Premature infant: 3.0 4.2 g/dL. Moville: 3.5 5.4 g/dL. : 4.4 5.4 g/dL. Child: 4.0 5.9 g/dL. Adult: 3.5 5.0 g/dL or 35 50 g/L (SI units). PT 11.0 12.5 seconds; 85% 100%. INR 0.8 1.1. Total protein Premature : 4.2 7.6 g/dL. Moville: 4.6 7.4 g/dL. : 6.0 6.7 g/dL. [...] 04/24/2005 Document Revised: 11/09/2018 Document Reviewed: 01/04/2018 Phase Eight Patient Education 2020 SEA. Liver Function Tests Why am I having [...] including vitamins, herbs, eye drops, creams, and qafp-bqu-cqxeegt medicines. Any medical conditions you have. Whether [...] be higher for older adults. Total bilirubin [place]: 1.0 12.0 mg/dL or 17.1 205 micromoles/L (SI units). Child or adult: 0.3 1.0 mg/dL or 5.1 17 micromoles/L. Albumin Premature infant: 3.0 4.2 g/dL. Moville: 3.5 5.4 g/dL. : 4.4 5.4 g/dL. Child: 4.0 5.9 g/dL. Adult: 3.5 5.0 g/dL or 35 50 g/L (SI units). PT 11.0 12.5 seconds; 85% 100%. INR 0.8 1.1. Total protein Premature : 4.2 7.6 g/dL. Moville: 4.6 7.4 g/dL. Infant: 6.0 6.7 g/dL. [...] 04/24/2005 Document Revised: 11/09/2018 Document Reviewed: 01/04/2018 Phase Eight Patient Education 2020 [employer]. Liver Function Tests Why am I [...] including vitamins, herbs, eye drops, creams, and ebif-zuu-vjmoist medicines. Any medical conditions you have. Whether [...] micromoles/L. Albumin Premature infant: 3.0 4.2 g/dL. Moville: 3.5 5.4 g/dL. Infant: 4.4 5.4 g/dL. Child: 4.0 5.9 g/dL. Adult: 3.5 5.0 g/dL or 35 50 g/L (SI units). PT 11.0 12.5 seconds; 85% 100%. INR 0.8 1.1. Total protein Premature infant: 4.2 7.6 g/dL. Mov[place]: 4.6 7.4 g/dL. : 6.0 6.7 g/dL. [...] Document Reviewed: 01/04/2018 Elsevier Patient Education 2020 [employer]. Additional Information VACCINATE! IT SAVES LIVES! Members of the community who have not yet received the COVID-19 vaccine and would like to receive it can visit one of [facility] vaccine clinics. There are many vaccine clinic locations within the [facility]. For locations and available times, please visit [email or web address] It is important to note that some COVID mobile vaccine clinics are held outdoors and may be canceled in rainy or stormy conditions. To learn more about pediatric vaccinations (ages 5-11), we invite you to visit the [facility] webpage. https://www.[email or web address].org/pages/4465-Drzpj-Fpanudmmsmg-Cvcinejdwu-Itztb-Flc stions.htmlTo learn more about the COVID-19 vaccine, we invite you to visit the [facility] website for a list of frequently asked questions. [email or web address]-rep-Ejxojdgy/hkqij-Fyjweap-Dplrspzmlb _Asked-Questions.pdf [facility] Patient Portal Access Instructions: Stay connected with your healthcare team and access your personal medical information anytime with the [facility] Patient Portal.If you would like a full copy of your medical records, please contact the [facility] Medical Records Department, Wednesday through Wednesday between 8a.m. and 4:30p.m. Please follow the directions below to access the portal: 1.Access the email account you provided upon registration to the [facility].2.Look for an invitation email from [facility].3.Open the email and access the invitation link: Accept Invitation to [facility]4.Fill in the required mujica to create your account. Sign into [email or web address] with your username and password that you [...] you will allow to register on the [facility] Patient Portal for access to your information. You can also access the [facility] Patient Portal on the [employer] narciso. Simply click on Health Records under OLX and then click on the [facility] logo. [...] Call your local pharmacy or go to http://bit.Thoughtful Movers/7B4Cb8p to find one close to you.3.Make use of household items: Use cat litter or old coffee grounds to dispose medications if other options arenot available. Mix your drugs with these household products, seal them in an airtight container andthrow it into the garbage. Call [facility]: [phone] to be sure your drugs can be [...] aware that I should contact my doctor. Patient/Transcript Evaluator Signature: Date/Time: Relationship to Patient: Witness Name/Signature: Date/Time: [facility] [id number] Discharge summary Date of Service 05/15/2022 Discharge Diagnosis 1. Cirrhosis (K74.60 - ICD-10-CM) Ordered: traMADol 50 mg oral tablet; Dose : 25 mg = 0.5 tab(s), Oral, q8h, PRN for pain, X 3 day(s), # 5 tab(s), 0 Refill(s), 05/18/22 15:15:00 EST, Pharmacy: [id number], Cirrhosis, 160, cm, 05/12/22 23:42:00 EST, [...] not follow regularly with PCP presents from [facility] with complaints of abdominal distension. Both her and her ate beans a few days ago and felt nauseous, but improved. Persistent symptoms brought patient to [place] where CT A/P and US revealed evidence [...] Tylenol or NSAIDs. I have reviewed the [place] Automated Rx Reporting System (OARRS) report for [...] MD When Within 1-2 days Where: [address] [facility] [address] [phone] Follow Up with TRIPP DELGADILLO DO When Within 1-2 days Why: Office will call you at home Where: [address] [place] [address]- Follow Up Appointments No qualifying data available. [...] by KRISTOPHER BYRD on 05/15/2022 03:23 PM [facility] [id number] Gastroenterology Progress note Date of Service 05/15/2022 [...] biopsy to better define Patient to avoid cvdn-ozt-rebzjpk medications including herbals Avoid alcohol Follow-up with us for OV and management options Disposition per Dr. Oswald Digitally Signed by EULA PIERCE on 05/15/2022 01:48 PM [facility] [id number] Gastroenterology Progress note Date of Service 05/15/2022 [...] biopsy to better define Patient to avoid cftk-prl-suypwku medications including herbals Avoid alcohol Follow-up with us for OV and management options Disposition per Dr. Oswald Digitally Signed by EULA PIERCE on 05/15/2022 01:48 PM [facility] [id number] Note Date of Service 05/14/2022 Chief Complaint Abdominal distention Subjective 32 yo female who does not follow regularly with PCP presents from [facility] with complaints of abdominal distension. Both her and her ate beans a few days ago and felt nauseous, but improved. Persistent symptoms brought patient to [place] where CT A/P and US revealed evidence [...] by KRISTOPHER BYRD on 05/14/2022 03:01 PM [facility] [id number] Note ORIGINAL EXAMINATION: MRI OF THE ABDOMEN [...] Sign Date: 05/14/2022 3:45:42 PM Ordering Provider: [facility]02-09-2023 Note Date of Service 05/14/2022 Chief Complaint Abdominal distention Subjective 32 yo female who does not follow regularly with PCP presents from [facility] with complaints of abdominal distension. Both her and her ate beans a few days ago and felt nauseous, but improved. Persistent symptoms brought patient to [place] where CT A/P and US revealed evidence [...] by KRISTOPHER BYRD on 05/14/2022 03:01 PM [facility] [id number] Note ORIGINAL EXAMINATION: MRI OF THE ABDOMEN [...] Sign Date: 05/14/2022 3:45:42 PM Ordering Provider: [facility]02-09-2023 Note ORIGINAL EXAMINATION: Hepatic elastography and duplex [...] 1.66-1.77 m/s (8.29 kPa - 9.40 kPa) Mnsn-ts-rfsfxjli risk of clinically significant liver fibrosis. (METAVIR [...] Date: 05/14/2022 11:23:32 AM Ordering Provider: EDWARDO [facility]02-09-2023 Gastroenterology Progress note Date of Service 05/14/2022 [...] GERSON OSWALD MD on 05/14/2022 10:23 AM [facility] [id number] Note. MICRO - Microbiology PROCEDURE: Urine Culture [...] Locations *1: This test was performed at: [facility], [address] [place] [address], [phone] , [facility] hospital ([place])05-14-2022 Note ORIGINAL EXAMINATION: Hepatic elastography and duplex [...] 1.66-1.77 m/s (8.29 kPa - 9.40 kPa) Mlss-oy-oeylcugx risk of clinically significant liver fibrosis. (METAVIR [...] Date: 05/14/2022 11:23:32 AM Ordering Provider: EDWARDO [facility]02-08-2023 Gastroenterology Consult note Date of Service 05/13/2022 [...] injection, 5000 unit(s)= 1 mL, Subcutaneous, q8h [place] 325- 5 mg oral tablet, 1 tab(s), [...] by EULA PIERCE on 05/13/2022 02:30 PM [facility] [id number] Note Date of Service 05/13/2022 Chief Complaint Abdominal pain/distention Subjective 32 yo female who does not follow regularly with PCP presents from [facility] with complaints of abdominal distension. Both her and her ate beans a few days ago and felt nauseous, but improved. Continue symptoms brought patient to [place] where CT A/P and US revealed evidence [...] OSORIO AYERS APRN-TIEN on 05/13/2022 11:51 AM [place] [address]-08-2023 Gastroenterology Consult note Date of Service 05/13/2022 [...] injection, 5000 unit(s)= 1 mL, Subcutaneous, q8h [place] 325- 5 mg oral tablet, 1 tab(s), [...] by EULA PIERCE on 05/13/2022 02:30 PM [facility] [id number] Evaluation + Plan noteExtracted from: Title:History and [...] * Liver Kidney Microsome IgG Autoabs 05/13/22 [facility] 02-08-2023 Note Date of Service 05/13/2022 Chief Complaint Abdominal pain/distention Subjective 32 yo female who does not follow regularly with PCP presents from [facility] with complaints of abdominal distension. Both her and her ate beans a few days ago and felt nauseous, but improved. Continue symptoms brought patient to [place] where CT A/P and US revealed evidence [...] by OSORIO AYERS on 05/13/2022 11:51 AM [facility] [id number] History and physical note Date of Service 05/13/2022 Chief Complaint Abd distension History of Present Illness 32 yo F w/a PMH who does not follow regularly with PCP presents from [facility] with complaints of abddistension. Both her and her ate beans a few days ago and felt nauseous, but complaints of distension subsided while his improved. She denies CP, SOB, V/D, dizziness, fevers. Symptoms [facility] and US revealed evidence of [...] MICHAEL CLEVELAND DO on 05/13/2022 01:30 AM [facility] [id number] Note ORIGINAL EXAMINATION: COMPLETE ABDOMINAL ULTRASOUND05/12/2022 2:39 [...] Sign Date: 05/12/2022 3:02:47 PM Ordering Provider: [facility]02-07-2023 Note ORIGINAL EXAMINATION: COMPLETE ABDOMINAL ULTRASOUND05/12/2022 [...] Sign Date: 05/12/2022 3:02:47 PM Ordering Provider: [facility]02-07-2023 Evaluation + Plan note Diagnostic Tests Pending * Urine Culture 05/12/22 [facility] 02-07-2023 Note ORIGINAL EXAMINATION: CT OF THE [...] PM Ordering Provider: NELLY DE LA CRUZ [facility]02-07-2023 Hospital Discharge instructions Follow Up Care 05/12/2022 10:00:35 With:Call Physician Referral Address:Unknown When:2-4 days With:Follow up with primary care provider Address:Unknown When:2-4 days [facility] 02-07-2023 Note ORIGINAL EXAMINATION: CT OF THE [...] No acute abnormality identified. Interpreted by: Kristopher Vzaquez MD Preliminary Report By: Kristopher Vazquez MD Electronically signed By Kristopher Vazquez MD Dictated Date: 05/12/2022 12:11:49 PM Prelim Date: 05/12/2022 12:15:04 PM Sign Date: 05/12/2022 12:15:04 PM [facility] Future Appointments Appointment Date:05/27/2022 11:00:00 AM Scheduled Provider: Location:CT Appointment Type:CT Biopsy Liver Future Scheduled Tests Radiology* CT Biopsy Liver 05/27/22 [facility] Hospital course Narrative No data available for this section [facility] Hospital Discharge instructions No data available for this section [facility] Progress note No data available for this section [facility] Summary Purpose Family History No Family History [...] Member Role: Resident Address: Address: [address] [facility] ED Resident [address] Name: JULIAN IGLESIAS MD Position: ED Physician Address: Address: [address] [facility] [address] Care Team Personnel Name: PHYSICIAN, NONE [...] BE BASED ON THE PRIMARY CLINICAL RECORDS. [facility] [employer] [facility]. provides no warranty or guarantee of the accuracy or completeness of information in this document.
[2023-05-17 10:29] LABS: Absolute Lymphocyte Count 0.91 X10^3/uL (0.83-4.51); Basophil# 0.03 X10^3/uL; Basophil% 0.9 % (0-1); Eosinophil# 0.11 X10^3/uL; Eosinophils% 3.3 % (0-5); Hematocrit 39.7 % (37-47); Hemoglobin 14.1 g/dL (12.0-15.0); Lymphocyte # 0.91 X10^3/ul (0.83-4.51); Lymphocyte % 27.6 % (19-41); Mean Corp Hgb Conc 35.5 g/dL (32-36); Mean Corpuscular Hgb 31.1 pg (27.0-32.0); Mean Corpuscular Volume 87.6 fL (81-99); Mean Platelet Vol. 10.5 fl (6.2-12.0); Monocyte# 0.24 X10^3/uL; Monocyte% 7.3 % (0-10); NRBC Flagged by Analyzer 0 % (0-5); Neutrophil % 60.6 % (47-70); POSITIVE COUNT YES; Platelet Count 69 K/mm3 (150-450); RBC Distribution Width CV 14.3 % (11.6-14.6); RBC Distribution Width SD 45.1 fl (35.1-43.9); Red Blood Count 4.53 M/mm3 (4.2-5.4); White Blood Count 3.3 K/mm3 (4.4-11.0)
[2023-05-17 11:45] LABS: AST(SGOT) 25 U/L (15-37); Alanine Aminotransfer ALT/SGPT 36 U/L (13-56); Albumin, Serum 4.1 g/dL (3.2-5.0); Alkaline Phosphatase 64 U/L (45-117); Bilirubin, Direct 0.24 mg/dL (0.00-0.30); Globulin 3.4 g/dL (2.2-4.2); Protein, Total 7.5 g/dL (6.4-8.2)
== END | disposition home or self-care (01) ==
PROVIDERS: PCP Family Medicine; Referring Provider Internal Medicine Gastroenterology; Visit Provider Internal Medicine Gastroenterology
DX: B17.9 Acute viral hepatitis, unspecified (principal)
CPT/HCPCS: 36415; 80076; 85025

== ENCOUNTER → 2023-06-21 | Outpatient (CLI) | payer OTHER, SELFPAY ==
[2023-06-21 12:55] LABS: Cholesterol 158 mg/dL (200); High Density Lipoprotein 82 mg/dL; Thyroid Stim Hormone (TSH) 1.44 uIU/mL (0.358-3.74); Triglycerides 62 mg/dL; Very Low Density Lipoprotein 12 mg/dL (5-40)
[2023-06-21 13:44] LABS: Hemoglobin A1c 4.3 % (3.8-5.6)
== END | disposition home or self-care (01) ==
LOC: MFPLAB 10:11
PROVIDERS: PCP Family Medicine; Visit Provider Family Medicine
DX: Z13.228 Encounter for screening for other metabolic disorders (principal)
CPT/HCPCS: 36415; 80061; 83036; 84443

== ENCOUNTER 2024-03-08 10:20 | Outpatient (RCR) | payer OTHER, SELFPAY ==
[2024-03-08 12:32] LABS: International Normalized Ratio 1.2; Partial Thromboplast Time 31.9 Seconds (24.1-36.2); Prothrombin Time (Protime)PT. 15.4 SECONDS (11.7-14.9)
[2024-03-08 12:38] LABS: Absolute Lymphocyte Count 0.83 X10^3/uL (0.83-4.51); Absolute Neutrophil Count 5.5 X10^3/uL (2.0-7.7); Basophil# 0.04 X10^3/uL; Basophil% 0.6 % (0-1); Eosinophil# 0.29 X10^3/uL; Eosinophils% 4.1 % (0-5); Hematocrit 42.6 % (37-47); Hemoglobin 15.5 g/dL (12.0-15.0); Lymphocyte # 0.83 X10^3/ul (0.83-4.51); Lymphocyte % 11.8 % (19-41); Mean Corp Hgb Conc 36.4 g/dL (32-36); Mean Corpuscular Volume 85.2 fL (81-99); Mean Platelet Vol. 11.1 fl (6.2-12.0); Monocyte# 0.37 X10^3/uL; Monocyte% 5.3 % (0-10); NRBC Flagged by Analyzer 0 % (0-5); Neutrophil # 5.46 X10^3/uL (2.7-7.7); Neutrophil % 77.9 % (47-70); POSITIVE COUNT YES; Platelet Count 83 K/mm3 (150-450); RBC Distribution Width CV 14.1 % (11.6-14.6); RBC Distribution Width SD 43.1 fl (35.1-43.9)
[2024-03-08 12:53] LABS: AST(SGOT) 23 U/L (15-37); Alanine Aminotransfer ALT/SGPT 28 U/L (13-56); Albumin, Serum 4.8 g/dL (3.2-5.0); Alkaline Phosphatase 62 U/L (45-117); Bilirubin, Direct 0.36 mg/dL (0.00-0.30); Protein, Total 8.8 g/dL (6.4-8.2)
[2024-03-09 04:08] LABS: AFP, Tumor Marker 3.4 ng/mL (0.0-6.4)
== END 2024-03-08 18:00 | disposition home or self-care (01) ==
LOC: MTLAB 10:20
PROVIDERS: PCP Family Medicine; Referring Provider Internal Medicine Gastroenterology; Visit Provider Internal Medicine Gastroenterology
DX: K74.60 Unspecified cirrhosis of liver (principal)
CPT/HCPCS: 36415; 80076; 82105; 85025; 85610; 85730

== ENCOUNTER → 2024-04-14 | Outpatient (CLI) | payer BC, SELFPAY ==
--- NOTE | 2024-04-14 08:12 | MRI_ITS ---
MRI Abdomen w/ and w/out contrast 04/14/2024 8:51 AM COMPARISON: None CLINICAL HISTORY: AUTO IMMUNE LIVER CIRRHOSIS TECHNIQUE: Multiplanar T1 and T2 weighted, diffusion and dynamic post-gadolinium images were obtained through the abdomen before and after administration of 10 cc of IV gadolinium.. FINDINGS: Liver: Slightly nodular contour compatible with cirrhosis. No evidence of T2 hyperintense or arterially hyperenhancing mass. Gallbladder: Unremarkable Pancreas: Unremarkable Spleen: Markedly enlarged. Adrenal Glands: Unremarkable Kidneys: Unremarkable GI Tract: Unremarkable Lymphadenopathy: Absent Ascites: Absent Bones: No suspicious lesions MRI/MRI Abd WITH and W/O Contrast IMPRESSION: Cirrhotic liver with evidence of portal hypertension including marked splenomegaly. No evidence of T2 hyperintense or arterially hyperenhancing mass. Electronically Signed: Eber Perez MD at 21:15 EST ,
== END | disposition home or self-care (01) ==
PROVIDERS: PCP Family Medicine; Referring Provider Internal Medicine Gastroenterology; Visit Provider Internal Medicine Gastroenterology
DX: K74.60 Unspecified cirrhosis of liver (principal)
CPT/HCPCS: 74183; A9575; A4216

== ENCOUNTER → 2024-08-14 | Outpatient (CLI) | payer BC, SELFPAY ==
[2024-08-14 09:00] LABS: Bacteria 0 SEEN /hpf (None Seen); Mucous, Urine 0 SEEN /hpf (<or=2+); Red Blood Cells-Urine 0 SEEN /hpf (0-5); White Blood Cells 0 SEEN /hpf (0-5)
[2024-08-14 09:04] LABS: Color, Urine Yellow (Yellow); Glucose, Dipstick Normal (Normal); Ketone-Dipstick Negative (Negative); Leukocyte Esterase-Dipstick Negative /ul (Negative); Nitrite-Dipstick Negative (Negative); Occult Blood-Urine Negative /ul (Negative); Protein-Dipstick Negative (Negative); Urine Bilirubin Dipstick Negative (Negative); Urine Clarity Clear (Clear); Urine Urobilinogen Normal (Normal)
[2024-08-14 09:10] LABS: Squamous Epithelial Cells - UA 0-5 SEEN /hpf (5-10)
== END | disposition home or self-care (01) ==
LOC: LAB 08:08
PROVIDERS: PCP Family Medicine; Referring Provider Internal Medicine Rheumatology; Visit Provider Internal Medicine Rheumatology
DX: R80.9 Proteinuria, unspecified (principal)
CPT/HCPCS: 36415; 81001

== ENCOUNTER → 2024-09-27 | Outpatient (CLI) | payer BC, SELFPAY ==
[2024-09-27 12:42] LABS: Absolute Lymphocyte Count 0.75 X10^3/uL (0.83-4.51); Absolute Neutrophil Count 4.2 X10^3/uL (2.0-7.7); Basophil# 0.04 X10^3/uL; Basophil% 0.7 % (0-1); Eosinophil# 0.21 X10^3/uL; Eosinophils% 3.9 % (0-5); Hemoglobin 15.2 g/dL (12.0-15.0); Lymphocyte # 0.75 X10^3/ul (0.83-4.51); Lymphocyte % 13.8 % (19-41); Mean Corp Hgb Conc 36.2 g/dL (32-36); Mean Corpuscular Hgb 31.7 pg (27.0-32.0); Mean Corpuscular Volume 87.7 fL (81-99); Monocyte# 0.26 X10^3/uL; Monocyte% 4.8 % (0-10); NRBC Flagged by Analyzer 0 % (0-5); Neutrophil # 4.17 X10^3/uL (2.7-7.7); Neutrophil % 76.4 % (47-70); POSITIVE COUNT YES; Platelet Count 81 K/mm3 (150-450); RBC Distribution Width CV 14.2 % (11.6-14.6); Red Blood Count 4.79 M/mm3 (4.2-5.4); White Blood Count 5.5 K/mm3 (4.4-11.0)
[2024-09-27 12:44] LABS: International Normalized Ratio 1.2
[2024-09-27 12:45] LABS: Partial Thromboplast Time 28.9 Seconds (24.1-36.2)
[2024-09-27 14:06] LABS: ALB/GLOB Ratio 1.6 RATIO (0.9-2.4); AST(SGOT) 27 U/L (<=31); Alanine Aminotransfer ALT/SGPT 28 U/L (<=34); Albumin, Serum 5.2 g/dL (3.5-5.0); Alkaline Phosphatase 61 U/L (35-104); Anion Gap 13 (5-15); BUN 13 mg/dL (4-19); BUN/Creat Ratio 20.8 RATIO (10-20); Calcium,Total 9.7 mg/dL (7.6-11.0); Carbon Dioxide 23.2 mmol/L (21.0-32.0); Chloride 103 mmol/L (98-108); Creatinine, Serum 0.61 mg/dL (0.70-1.20); EST Glomerular Filtration Rate 120 (>60); Globulin 3.3 g/dL (2.2-4.2); Glucose 93 mg/dL (70-99); Potassium 4.1 mmol/L (3.3-5.1); Protein, Total 8.4 g/dL (5.9-8.4); Sodium Level 139 mmol/L (133-145); Total Bilirubin 1.15 mg/dL (0.00-1.30)
[2024-09-28 04:59] LABS: AFP, Tumor Marker 2.8 ng/mL (0.0-6.4)
== END | disposition home or self-care (01) ==
LOC: MTLAB 10:13
PROVIDERS: PCP Family Medicine; Referring Provider Internal Medicine Gastroenterology; Visit Provider Internal Medicine Gastroenterology
DX: K74.60 Unspecified cirrhosis of liver (principal)
CPT/HCPCS: 36415; 80053; 82105; 85025; 85610; 85730

== ENCOUNTER → 2024-11-27 | Outpatient (CLI) | payer BC, SELFPAY ==
[2024-11-27 11:08] LABS: Creatinine, Urine (random) 44.20 mg/dL (28.00-217.00); Protein, Urine (Random) 13.1 mg/dL (0.0-12.0); Protein:Creat Ratio 296 mg/g CRE (0-200)
== END | disposition home or self-care (01) ==
LOC: LABSPEC 08:07
PROVIDERS: PCP Family Medicine; Visit Provider Internal Medicine Rheumatology
DX: R80.9 Proteinuria, unspecified (principal)
CPT/HCPCS: 36415; 82570; 84156

== ENCOUNTER → 2025-03-19 | Outpatient (CLI) | payer BC, SELFPAY ==
--- NOTE | 2025-03-19 09:50 | US_ITS ---
PROCEDURE: ABDOMEN LIMITED, 03/19/2025 REASON FOR EXAM: CIRRHOSIS COMPARISON: 04/14/2024 FINDINGS: Liver: Cirrhosis. 14.5 cm in length. No visualized focal hepatic lesion. Gallbladder: Mild wall thickening to 6 mm. No visualized stones or pericholecystic fluid. Reportedly, sonographic Anderson's was negative. Biliary tree: Unremarkable. CBD measures 2 mm. Pancreas: Partially obscured by shadowing bowel gas, grossly unremarkable as visualized. Right kidney: Echogenic nonshadowing possible nonobstructing intrarenal calculi versus prominent renal sinus fat up to 3 x 6 x 5 mm.. No hydronephrosis. 10.4 cm in length. Other: No visualized free fluid. Patent portal vein. Distended splenic vein. US/Abdomen Limited IMPRESSION: 1. Cirrhosis without visualized focal hepatic lesion. No visualized ascites. 2. Mild gallbladder wall thickening is nonspecific in the setting of cirrhosis. No visualized cholelithiasis, definite pericholecystic fluid, or reported positive sonographic Anderson's sign to sugges t acute cholecystitis however this should be confirmed by clinician exam. No biliary dilatation. 3. Additional description as above. Reading Location: [id number]
[2025-03-19 12:18] LABS: Prothrombin Time (Protime)PT. 16.1 SECONDS (11.7-14.9)
[2025-03-19 12:19] LABS: Partial Thromboplast Time 35.3 Seconds (24.1-36.2)
[2025-03-19 12:26] LABS: Hematocrit 39.7 % (37-47); Hemoglobin 14.1 g/dL (12.0-15.0); Immature Granulocytes Count 0.020 X10^3/uL (0.0-0.0); Mean Corp Hgb Conc 35.5 g/dL (32-36); Mean Corpuscular Volume 86.7 fL (81-99); Mean Platelet Vol. 10.9 fl (6.2-12.0); NRBC Flagged by Analyzer 0 % (0-5); POSITIVE COUNT YES; POSITIVE DIFFERENTIAL YES; Platelet Count 65 K/mm3 (150-450); RBC Distribution Width CV 14.6 % (11.6-14.6); RBC Distribution Width SD 45.3 fl (35.1-43.9); Red Blood Count 4.58 M/mm3 (4.2-5.4); White Blood Count 3.5 K/mm3 (4.4-11.0)
[2025-03-19 12:31] LABS: AST(SGOT) 59 U/L (<=31); Alanine Aminotransfer ALT/SGPT 71 U/L (<=34); Albumin, Serum 4.7 g/dL (3.5-5.0); Alkaline Phosphatase 101 U/L (35-104); Anion Gap 10 (5-15); BUN 12 mg/dL (4-19); BUN/Creat Ratio 19.7 RATIO (10-20); Calcium,Total 9.5 mg/dL (7.6-11.0); Carbon Dioxide 25.4 mmol/L (21.0-32.0); Chloride 104 mmol/L (98-108); Globulin 3.9 g/dL (2.2-4.2); Glucose 84 mg/dL (70-99); Potassium 3.9 mmol/L (3.3-5.1)
== END | disposition home or self-care (01) ==
PROVIDERS: PCP Family Medicine; Referring Provider Internal Medicine Gastroenterology; Visit Provider Internal Medicine Gastroenterology
DX: K74.60 Unspecified cirrhosis of liver (principal)
CPT/HCPCS: 36415; 76705; 80053; 82105; 85025; 85610; 85730